=== PATIENT | male | born 1930 | race Caucasian/White ===

== ENCOUNTER → 2016-11-11 | Outpatient (REF) | payer MEDICARE, OTHER ==
[~2016-11-11] MED LIST: AMIO20TA PO; AMLO10TA2 PO; ASPI1TAB PO; ASPI325T PO; CLOP75TA2 PO; COLA100C3 PO; COUM1TAB14 PO; COUM2TAB10 PO; CRES5TAB PO; DEMA5TAB PO; DIGO25TA PO; FOLI1TAB2 PO; IMDU30TA PO; INSULANT SC; LANO0.1211 OR; LANTINJ4 SC; LEVO100T54 PO; LOPR100T PO; LOSA25TA8 PO; LOVA1CAP17 PO; METO50TA2 PO; NIACPOW39 PO; NITR4TASL SL; OMEGA 3 PO; PERC10TA PO; PRIL20CA PO; SITA50TAB PO; TAMS0.4C2 PO; TOPR25TA PO; TORS10TA3 PO; TYLE325T5 PO; VITA1CAP25 PO; VITA500047 PO; VITMTA PO; ZETI10TA21 PO
== END ==
LOC: M LAB REF 16:46
PROVIDERS: ATTEND Internal Medicine Nephrology
DX: N18.4 Chronic kidney disease, stage 4 (severe) (principal); D50.9 Iron deficiency anemia, unspecified

== ENCOUNTER → 2016-11-23 | Outpatient (CLI) | payer MEDICARE, OTHER ==
[2016-11-23 12:31] LABS: ALBUMIN/GLOBULIN RATIO 0.91 (1.00-1.93); BILIRUBIN,DIRECT 0.1 MG/DL (0.0-0.2); BILIRUBIN,TOTAL 0.4 MG/DL (0.2-1.0); MAGNESIUM LEVEL 2.2 MG/DL (1.8-2.4); TOTAL PROTEIN 6.3 GM/DL (6.4-8.2)
== END ==
LOC: M LAB 10:49
PROVIDERS: ATTEND Physician Assistant
DX: I50.32 Chronic diastolic (congestive) heart failure (principal); I48.0 Paroxysmal atrial fibrillation; E78.00 Pure hypercholesterolemia, unspecified; I25.10 Atherosclerotic heart disease of native coronary artery without angina pectoris

== ENCOUNTER → 2017-05-11 | Outpatient (CLI) | payer MEDICARE ==
[~2017-05-11] MED LIST changes: -COLA100C3 PO; +COLA100C5 PO; -COUM2TAB10 PO; +COUM2TAB22 PO; -FOLI1TAB2 PO; +FOLI1TAB4 PO; -METO50TA2 PO; +METO50TA7 PO
--- NOTE | 2017-05-11 17:09 | REP ---
Chest two views HISTORY: Atrial fibrillation Comparison: 12/23/2014 There is elevation of the right hemidiaphragm. The lungs are clear. The heart is upper limits of normal in size. An aortic valve is present. The pulmonary vasculature is normal in appearance. The bony structure is intact. IMPRESSION: No acute disease. Signed by Jovany Tovar MD 05/11/2017 05:00 P
[2017-05-11 21:09] LABS: ALBUMIN 3.1 GM/DL (3.2-5.2); BILIRUBIN,TOTAL 0.4 MG/DL (0.2-1.0); CALCIUM LEVEL 8.5 MG/DL (8.8-10.2); CREATININE FOR GFR 3.51 MG/DL (0.70-1.30); GLOMERULAR FILTRATION RATE 17.8 (>35); MAGNESIUM LEVEL 2.1 MG/DL (1.8-2.4); POTASSIUM SERUM 4.8 MEQ/L (3.5-5.1); TOTAL PROTEIN 6.2 GM/DL (6.4-8.2)
== END ==
LOC: M WUC 16:41
PROVIDERS: ATTEND Physician Assistant
DX: I48.0 Paroxysmal atrial fibrillation (principal)

== ENCOUNTER 2017-06-09 22:37 | Emergency (ER) | payer MEDICARE ==
[~2017-06-09] VITALS: Ht 182.9 cm; Wt 80.9 kg
[2017-06-09 23:36] LABS: BASO % 0.7 % (0.0-1.0); EOS # 0.4 10^3/uL (0.0-0.50); EOS % 7.2 % (0.0-3.0); IMMATURE GRANULOCYTE % 0.5 % (0-0); LYMPH # 1.5 10^3/uL (1.5-4.5); LYMPH % 27.8 % (24.0-44.0); MEAN CORPUSCULAR HEMOGLOBIN 29.5 pg (27.0-33.0); MEAN CORPUSCULAR VOLUME 92.3 fl (80.0-96.0); MONO # 0.5 10^3/uL (0.0-0.8); MONO % 9.6 % (0.0-5.0); NEUTROPHILS % 54.2 % (36.0-66.0); PLATELET COUNT, AUTOMATED 192 10^3/uL (150-450); RED CELL DISTRIBUTION WIDTH 15.2 % (11.5-14.5); WHITE BLOOD COUNT 5.5 10^3/uL (4.0-10.0)
[2017-06-09 23:47] LABS: INR 2.31
[2017-06-10 01:47] VITALS: BP 176/82
== END 2017-06-10 01:48 | disposition home or self-care (01) ==
LOC: M ED 22:37
DX: K91.841 Postprocedural hemorrhage of a digestive system organ or structure following other procedure (principal); I48.91 Unspecified atrial fibrillation; Z79.82 Long term (current) use of aspirin; Z79.4 Long term (current) use of insulin; Z79.01 Long term (current) use of anticoagulants; Z79.899 Other long term (current) drug therapy; Z88.5 Allergy status to narcotic agent; Z91.041 Radiographic dye allergy status; Z91.040 Latex allergy status

== ENCOUNTER 2017-06-11 17:53 | Emergency (ER) | payer MEDICARE ==
[~2017-06-11] VITALS: Ht 180.3 cm; Wt 83.2 kg
[2017-06-11 17:54] VITALS: BP 174/74
[2017-06-11 19:01] LABS: BASO % 0.6 % (0.0-1.0); EOS # 0.4 10^3/uL (0.0-0.50); IMMATURE GRANULOCYTE % 0.3 % (0-0); LYMPH # 1.6 10^3/uL (1.5-4.5); LYMPH % 25.2 % (24.0-44.0); MEAN CORPUSCULAR HEMOGLOBIN 29.6 pg (27.0-33.0); MEAN CORPUSCULAR HGB CONC 31.6 g/dl (32.0-36.5); MEAN CORPUSCULAR VOLUME 93.5 fl (80.0-96.0); MONO # 0.5 10^3/uL (0.0-0.8); MONO % 8.3 % (0.0-5.0); NEUTROPHILS # 3.7 10^3/uL (1.8-7.7); NEUTROPHILS % 58.6 % (36.0-66.0); PLATELET COUNT, AUTOMATED 216 10^3/uL (150-450); WHITE BLOOD COUNT 6.3 10^3/uL (4.0-10.0)
[2017-06-11 19:12] LABS: INR 1.76
== END 2017-06-11 20:20 | disposition home or self-care (01) ==
LOC: M ED 17:53
DX: K91.841 Postprocedural hemorrhage of a digestive system organ or structure following other procedure (principal); Z79.82 Long term (current) use of aspirin; Z79.4 Long term (current) use of insulin; Z79.01 Long term (current) use of anticoagulants; Z79.899 Other long term (current) drug therapy; Z91.040 Latex allergy status; Z88.5 Allergy status to narcotic agent; Z91.041 Radiographic dye allergy status

== ENCOUNTER → 2017-12-04 | Outpatient (CLI) | payer MEDICARE | LOC: M RAD 13:33 | DX: R60.9 Edema, unspecified (principal); N18.6 End stage renal disease | CPT/HCPCS: 93970 ==

== ENCOUNTER → 2017-12-14 | Outpatient (REF) | payer MEDICARE ==
[2017-12-14 14:14] LABS: FERRITIN 17 NG/ML (26-388); IRON (FE) 20 UG/DL (65-175); PERCENT SATURATION 5.8 % (19.7-50.0); TOTAL IRON BINDING CAPACITY 346 UG/DL (250-450)
== END ==
LOC: M LAB REF 13:26
DX: N18.4 Chronic kidney disease, stage 4 (severe) (principal); D50.9 Iron deficiency anemia, unspecified
CPT/HCPCS: 83550

== ENCOUNTER 2018-01-04 13:31 | Outpatient (CLI) | payer MEDICARE ==
[2018-01-04] MEDS: IRON SUCROSE 25 MG in NS 50 ML IV (14:18)
[2018-01-04] MEDS ORDERED: IRON SUCROSE 475 MG in NS 250 ML IV (14:45)
== END 2018-01-04 18:40 | disposition home or self-care (01) ==
LOC: M INFU 13:31
DX: D50.9 Iron deficiency anemia, unspecified (principal); N18.9 Chronic kidney disease, unspecified; Z79.82 Long term (current) use of aspirin; Z79.01 Long term (current) use of anticoagulants; Z79.899 Other long term (current) drug therapy; Z91.048 Other nonmedicinal substance allergy status; Z86.74 Personal history of sudden cardiac arrest; Z95.5 Presence of coronary angioplasty implant and graft; Z95.4 Presence of other heart-valve replacement; Z85.820 Personal history of malignant melanoma of skin
CPT/HCPCS: J1756

== ENCOUNTER → 2018-01-18 | Outpatient (REF) | payer MEDICARE ==
[2018-01-18 18:20] LABS: ESTIMATED AVERAGE GLUCOSE 103 MG/DL (60-110); HEMOGLOBIN A1c 5.2 %
[2018-01-18 18:23] LABS: FREE T3 1.4 PG/ML (2.2-4.0); FREE T4 1.25 NG/DL (0.76-1.46)
== END ==
LOC: M LAB REF 17:06
DX: E03.9 Hypothyroidism, unspecified (principal); E11.9 Type 2 diabetes mellitus without complications
CPT/HCPCS: 84443

== ENCOUNTER → 2018-01-25 | Outpatient (REF) | payer MEDICARE ==
[2018-01-25 13:23] LABS: INR 2.37; PROTHROMBIN TIME 26.4 SECONDS (12.1-14.4)
== END ==
LOC: M LAB REF 12:53
DX: Z79.01 Long term (current) use of anticoagulants (principal)
CPT/HCPCS: 85610

== ENCOUNTER → 2018-01-30 | Outpatient (CLI) | payer MEDICARE | LOC: M RAD 12:57 | DX: N18.6 End stage renal disease (principal); Z01.818 Encounter for other preprocedural examination | CPT/HCPCS: G0365 ==

== ENCOUNTER 2018-02-09 10:18 | Day surgery (SDC) | payer MEDICARE ==
[2018-02-09] MEDS ORDERED: PROPOFOL 200 MG/20 ML VIAL As Ordered ×2 (10:47→13:43)
[2018-02-09] MEDS ORDERED: ONDANSETRON 4MG/2ML VIAL (J2405) As Ordered ×2 (10:47→13:43)
[2018-02-09] MEDS ORDERED: LIDOCAINE 2% INJ 100 MG/5 ML SDV (FOR ANES.) As Ordered ×2 (10:47→13:43)
[2018-02-09] MEDS ORDERED: fentaNYL 250 MCG/5 ML INJECTION (J3010) As Ordered (10:47)
[2018-02-09] MEDS ORDERED: dexameTHASONE 4 MG/ML 1ML VIAL (J1100) As Ordered (10:47)
[2018-02-09] MEDS ORDERED: ROCURONIUM BROMIDE 50 MG/5 ML VIAL As Ordered (10:47)
[2018-02-09] MEDS ORDERED: MIDAZOLAM INJ 2 MG/2 ML VIAL (J2250) As Ordered (10:48)
[2018-02-09] MEDS ORDERED: NS 1,000 ML IV (11:00)
[2018-02-09 11:08] LABS: INR 1.99; PROTHROMBIN TIME 22.9 SECONDS (12.1-14.4)
[2018-02-09 11:09] LABS: PARTIAL THROMBOPLASTIN TIME 42.2 SECONDS (25.4-37.6)
[2018-02-09 11:19] LABS: ANION GAP 8 MEQ/L (8-16); BLOOD UREA NITROGEN 88 MG/DL (7-18); CALCIUM LEVEL 8.1 MG/DL (8.8-10.2); CARBON DIOXIDE LEVEL 29 MEQ/L (21-32); CHLORIDE LEVEL 107 MEQ/L (98-107); CREATININE FOR GFR 3.86 MG/DL (0.70-1.30); GLOMERULAR FILTRATION RATE 15.9 (>35); GLUCOSE, FASTING 113 MG/DL (70-100); POTASSIUM SERUM 4.4 MEQ/L (3.5-5.1); SODIUM LEVEL 144 MEQ/L (136-145)
[2018-02-09 11:20] LABS: BEDSIDE GLUCOSE 110 MG/DL (83-110)
[2018-02-09] MEDS ORDERED: fentaNYL 100 MCG/2 ML INJECTION (J3010) As Ordered (13:43)
[2018-02-09] MEDS ORDERED: ePHEDrine SULFATE 25 MG/5 ML(5MG/ML) SYRINGE As Ordered (14:07)
[2018-02-09] MEDS: HEPARIN SOD (PORCINE) 5000 UNITS/ML VIAL As Ordered (14:11)
[2018-02-09] MEDS: LIDOCAINE 1% SDV INJ 30 ML VIAL As Ordered (14:30)
[2018-02-09] MEDS: BUPIVACAINE HCL 0.5% 30 ML VIAL As Ordered (14:30)
[2018-02-09 15:29] LABS: BEDSIDE GLUCOSE 97 MG/DL (83-110)
== END 2018-02-09 16:00 | disposition home or self-care (01) ==
LOC: M SDC 10:18
DX: E11.22 Type 2 diabetes mellitus with diabetic chronic kidney disease (principal); I12.9 Hypertensive chronic kidney disease with stage 1 through stage 4 chronic kidney disease, or unspecified chronic kidney disease; N18.9 Chronic kidney disease, unspecified; I25.10 Atherosclerotic heart disease of native coronary artery without angina pectoris; I25.2 Old myocardial infarction; I48.91 Unspecified atrial fibrillation; D64.9 Anemia, unspecified; Z95.2 Presence of prosthetic heart valve; Z98.61 Coronary angioplasty status; Z91.040 Latex allergy status; Z91.041 Radiographic dye allergy status; Z88.5 Allergy status to narcotic agent; Z79.899 Other long term (current) drug therapy; Z79.4 Long term (current) use of insulin
CPT/HCPCS: 36821

== ENCOUNTER 2018-02-10 16:48 | Emergency (ER) | payer MEDICARE | END 2018-02-10 18:58 | disposition home or self-care (01) | LOC: M ED 16:48 | DX: T82.838A Hemorrhage due to vascular prosthetic devices, implants and grafts, initial encounter (principal); Y92.9 Unspecified place or not applicable; Y93.9 Activity, unspecified; I48.91 Unspecified atrial fibrillation; I25.10 Atherosclerotic heart disease of native coronary artery without angina pectoris; I50.9 Heart failure, unspecified; I25.2 Old myocardial infarction; E11.9 Type 2 diabetes mellitus without complications; I10 Essential (primary) hypertension; E78.5 Hyperlipidemia, unspecified; M10.9 Gout, unspecified; N18.6 End stage renal disease; Z86.73 Personal history of transient ischemic attack (TIA), and cerebral infarction without residual deficits; Z95.1 Presence of aortocoronary bypass graft; Z79.82 Long term (current) use of aspirin; Z79.4 Long term (current) use of insulin; Z79.01 Long term (current) use of anticoagulants; Z79.899 Other long term (current) drug therapy; Z88.5 Allergy status to narcotic agent; Z91.040 Latex allergy status; Z91.041 Radiographic dye allergy status | CPT/HCPCS: 99283 ==

== ENCOUNTER → 2018-03-15 | Outpatient (REF) | payer MEDICARE ==
[2018-03-16 09:44] LABS: HEPATITIS B SURFACE ANTIGEN NEGATIVE (NEGATIVE)
[2018-03-16 09:48] LABS: HEPATITIS B SURFACE ANTIBODY NEGATIVE (POSITIVE)
[2018-03-16 10:10] LABS: HEPATITIS B CORE ANTIBODY IGM NEGATIVE (NEGATIVE); HEPATITIS C VIRUS ABY INDEX 0.1 INDEX (<0.8)
== END ==
LOC: M LAB REF 13:58
DX: N18.6 End stage renal disease (principal); I48.0 Paroxysmal atrial fibrillation; Z51.81 Encounter for therapeutic drug level monitoring; Z79.01 Long term (current) use of anticoagulants
CPT/HCPCS: 86706

== ENCOUNTER → 2018-03-15 | Outpatient (REF) | payer MEDICARE ==
[2018-03-15 13:36] LABS: INR 3.79; PROTHROMBIN TIME 38.3 SECONDS (12.1-14.4)
== END ==
LOC: M LAB REF 13:01
DX: I48.0 Paroxysmal atrial fibrillation (principal); Z51.81 Encounter for therapeutic drug level monitoring; Z79.01 Long term (current) use of anticoagulants

== ENCOUNTER 2018-03-22 17:33 | Emergency (ER) | payer MEDICARE ==
[2018-03-22] MEDS: METOCLOPRAMIDE 10 MG TAB PO (19:18)
== END 2018-03-22 20:20 | disposition home or self-care (01) ==
LOC: M ED 17:33
DX: T82.49XA Other complication of vascular dialysis catheter, initial encounter (principal); X58.XXXA Exposure to other specified factors, initial encounter; Y92.89 Other specified places as the place of occurrence of the external cause; I12.9 Hypertensive chronic kidney disease with stage 1 through stage 4 chronic kidney disease, or unspecified chronic kidney disease; N18.4 Chronic kidney disease, stage 4 (severe); E78.00 Pure hypercholesterolemia, unspecified; I25.2 Old myocardial infarction; D64.9 Anemia, unspecified; F41.9 Anxiety disorder, unspecified; Z86.73 Personal history of transient ischemic attack (TIA), and cerebral infarction without residual deficits; Z88.5 Allergy status to narcotic agent; Z79.01 Long term (current) use of anticoagulants; Z91.040 Latex allergy status; Z91.041 Radiographic dye allergy status; Z87.891 Personal history of nicotine dependence
CPT/HCPCS: Q0162

== ENCOUNTER → 2018-03-22 | Outpatient (CLI) | payer MEDICARE ==
[~2018-03-22] MED LIST changes: -AMIO20TA PO; -AMLO10TA2 PO; -ASPI1TAB PO; -ASPI325T PO; -CLOP75TA2 PO; -COLA100C5 PO; -COUM1TAB14 PO; -COUM2TAB22 PO; -CRES5TAB PO; -DEMA5TAB PO; -DIGO25TA PO; -FOLI1TAB4 PO; +HEPARIN 1,000 UNITS/ML 10ML VIAL (FOR RADIOLOGY& DIALYSIS ONLY) As Ordered; -IMDU30TA PO; -INSULANT SC; -LANO0.1211 OR; -LANTINJ4 SC; -LEVO100T54 PO; +LIDOCAINE 2% MDV 20 ML VIAL As Ordered; -LOPR100T PO; -LOSA25TA8 PO; -LOVA1CAP17 PO; -METO50TA7 PO; +MIDAZOLAM INJ 2 MG/2 ML VIAL (J2250) As Ordered; -NIACPOW39 PO; -NITR4TASL SL; -OMEGA 3 PO; +ONDANSETRON 4 MG ORAL DISINTEGRATING TAB (Q0162 PER 1MG) As Ordered; -PERC10TA PO; -PRIL20CA PO; -SITA50TAB PO; -TAMS0.4C2 PO; -TOPR25TA PO; -TORS10TA3 PO; -TYLE325T5 PO; -VITA1CAP25 PO; -VITA500047 PO; -VITMTA PO; -ZETI10TA21 PO; +fentaNYL 100 MCG/2 ML INJECTION (J3010) As Ordered
== END | disposition home or self-care (01) ==
LOC: M IRPRO 10:20
DX: N18.9 Chronic kidney disease, unspecified (principal)
CPT/HCPCS: 36558

== ENCOUNTER → 2018-05-07 | Outpatient (CLI) | payer MEDICARE ==
[~2018-05-07] MED LIST changes: -HEPARIN 1,000 UNITS/ML 10ML VIAL (FOR RADIOLOGY& DIALYSIS ONLY) As Ordered; +ISOVUE-300 61% 50ML VIAL (Q9967) As Ordered; -ONDANSETRON 4 MG ORAL DISINTEGRATING TAB (Q0162 PER 1MG) As Ordered
== END | disposition home or self-care (01) ==
LOC: M IRPRO 09:08
DX: N18.6 End stage renal disease (principal); Z99.2 Dependence on renal dialysis
CPT/HCPCS: 36901

== ENCOUNTER 2018-05-12 08:25 | Emergency (ER) | payer MEDICARE ==
[2018-05-12 09:29] LABS: HEMATOCRIT 39.3 % (42.0-52.0); HEMOGLOBIN 12.3 g/dl (13.5-17.5); MEAN CORPUSCULAR HEMOGLOBIN 31.5 pg (27.0-33.0); MEAN CORPUSCULAR HGB CONC 31.3 g/dl (32.0-36.5); MEAN CORPUSCULAR VOLUME 100.5 fl (80.0-96.0); PLATELET COUNT, AUTOMATED 160 10^3/uL (150-450); RED BLOOD COUNT 3.91 10^6/uL (4.30-6.10); RED CELL DISTRIBUTION WIDTH 17.5 % (11.5-14.5)
[2018-05-12 09:54] LABS: ANION GAP 9 MEQ/L (8-16); BLOOD UREA NITROGEN 37 MG/DL (7-18); CALCIUM LEVEL 7.8 MG/DL (8.8-10.2); CARBON DIOXIDE LEVEL 31 MEQ/L (21-32); CHLORIDE LEVEL 101 MEQ/L (98-107); GLOMERULAR FILTRATION RATE 14.4 (>35); GLUCOSE, FASTING 129 MG/DL (70-100); POTASSIUM SERUM 3.8 MEQ/L (3.5-5.1); SODIUM LEVEL 141 MEQ/L (136-145); URIC ACID 3.5 MG/DL (3.5-7.2)
[2018-05-12] MEDS: COLCHICINE 0.6 MG TAB PO (10:58)
== END 2018-05-12 11:01 | disposition home or self-care (01) ==
LOC: M ED 08:25
DX: M25.572 Pain in left ankle and joints of left foot (principal); I25.2 Old myocardial infarction; E11.9 Type 2 diabetes mellitus without complications; I10 Essential (primary) hypertension; E03.9 Hypothyroidism, unspecified; Z86.73 Personal history of transient ischemic attack (TIA), and cerebral infarction without residual deficits; K21.9 Gastro-esophageal reflux disease without esophagitis; N18.3 Chronic kidney disease, stage 3 (moderate); D64.9 Anemia, unspecified; F41.9 Anxiety disorder, unspecified; Z99.2 Dependence on renal dialysis; Z95.1 Presence of aortocoronary bypass graft; Z95.2 Presence of prosthetic heart valve; Z87.891 Personal history of nicotine dependence; I70.209 Unspecified atherosclerosis of native arteries of extremities, unspecified extremity; M77.32 Calcaneal spur, left foot; Z79.82 Long term (current) use of aspirin; Z79.4 Long term (current) use of insulin; Z79.02 Long term (current) use of antithrombotics/antiplatelets; Z79.899 Other long term (current) drug therapy; Z88.5 Allergy status to narcotic agent; Z91.041 Radiographic dye allergy status; Z91.040 Latex allergy status
CPT/HCPCS: 73610

== ENCOUNTER → 2018-06-22 | Outpatient (CLI) | payer MEDICARE | LOC: M SMT 11:33 | DX: J98.11 Atelectasis (principal); J90 Pleural effusion, not elsewhere classified; I51.7 Cardiomegaly; I48.0 Paroxysmal atrial fibrillation; Z97.8 Presence of other specified devices | CPT/HCPCS: 71046 ==

== ENCOUNTER → 2018-07-10 | Outpatient (REF) | payer MEDICARE ==
[~2018-07-10] MED LIST changes: +AMIO200T; +AMIO20TA PO; +AMLO10TA4 PO; +AMOX500T; +ASPI1TAB PO; +ASPI325T PO; +CLOP75TA2 PO; +CODE30TA3 PO; +COLA100C5 PO; +COUM1TAB14 PO; +COUM2TAB22; +COUM2TAB22 PO; +CRES5TAB PO; +DEMA5TAB PO; +DIGO25TA PO; +FOLI1TAB5 PO; +HYDR-3910; +IMDU30TA PO; +INSULANT SC; -ISOVUE-300 61% 50ML VIAL (Q9967) As Ordered; +LANO0.1211 OR; +LANTINJ4 SC; +LEVO100T54 PO; -LIDOCAINE 2% MDV 20 ML VIAL As Ordered; +LOPR100T PO; +LOSA25TA8 PO; +LOVA1CAP17 PO; +METO50TA7 PO; -MIDAZOLAM INJ 2 MG/2 ML VIAL (J2250) As Ordered; +NIACPOW39 PO; +NITR4TASL SL; +OMEGA 3 PO; +PERC10TA PO; +PRIL20CA PO; +PROC20005 IJ; +RENATAB5 PO; +SEVE800T3; +SITA50TAB PO; +STOO100C PO; +TAMS0.4C2 PO; +TAMSULOSIN; +TOPR25TA PO; +TORS10TA3 PO; +TORS5TAB2 PO; +TYLE325T5 PO; +VITA1CAP25 PO; +VITA500047 PO; +VITA50005; +VITMTA PO; +WARF-20 PO; +WARF4TAB51 PO; +ZETI10TA21 PO; -fentaNYL 100 MCG/2 ML INJECTION (J3010) As Ordered
[2018-07-10 13:51] LABS: INR 1.38; PROTHROMBIN TIME 17.2 SECONDS (12.1-14.4)
== END ==
LOC: M LAB REF 12:37
PROVIDERS: ATTEND Internal Medicine Nephrology
DX: J90 Pleural effusion, not elsewhere classified (principal)

== ENCOUNTER → 2018-07-11 | Outpatient (CLI) | payer MEDICARE ==
[2018-07-11 15:00] LABS: APPEARANCE, BODY FLUID CLOUDY (CLEAR); PLEURAL FL COLOR RED (COLORLESS); SOURCE, BODY FLUID PLEURAL
[2018-07-11 15:16] LABS: CHOLESTEROL, BODY FLUID < 50 MG/DL (NOT ESTABLISHED); LDH, BODY FLUID 108 U/L (NOT ESTABLISHED); SOURCE, BODY FLUID CHOL PLEURAL; SOURCE, BODY FLUID LDH PLEURAL; SOURCE, BODY FLUID TOT PROTEIN PLEURAL
--- NOTE | 2018-07-11 17:03 | REP ---
Chest x-ray: Two views. History: Post thoracentesis. The patient is status post right thoracentesis. Comparison chest x-ray June 22, 2018. Findings: There is mild persistent blunting of the posterior pleural angles and the right lateral pleural angle. There is no evidence of pneumothorax. A tunneled central venous catheter is seen. The patient is status post aortic valve replacement and median sternotomy wires are seen. Cardiomegaly is observed. No new infiltrate. Impression: Small bilateral pleural effusions right a little larger than left, post thoracentesis on the right. No pneumothorax seen. Electronically Signed by Carter Rodriguez MD 07/11/2018 08:43 P
--- NOTE | 2018-07-11 20:33 | REP ---
ULTRASOUND-GUIDED RIGHT THORACENTESIS The procedure was performed under the direct supervision of Dr. Rodriguez. The risks and benefits of the procedure were explained to the patient and informed consent was obtained. The right pleural effusion was localized using ultrasound guidance. The skin was prepped and draped in a sterile fashion. 1% lidocaine was used as a local anesthetic. An 8-Sinhala multi side-hole catheter was inserted using trocar technique. 520 ml of low viscosity red colored fluid was withdrawn and sent to the lab for analysis. The patient tolerated the procedure well and there were no immediate complications. After the appropriate amount of monitored convalescence the patient was discharged from the department. Reviewed by YULISSA Heaton 07/11/2018 04:37 P Electronically Signed by Carter Rodriguez MD 07/11/2018 08:23 P
== END ==
LOC: M RADPRO 13:14
PROVIDERS: ATTEND Internal Medicine Nephrology
DX: J90 Pleural effusion, not elsewhere classified (principal); I50.32 Chronic diastolic (congestive) heart failure; I95.9 Hypotension, unspecified; G25.81 Restless legs syndrome; Z99.2 Dependence on renal dialysis; Z79.82 Long term (current) use of aspirin; Z79.899 Other long term (current) drug therapy; Z79.890 Hormone replacement therapy; Z79.01 Long term (current) use of anticoagulants; Z91.040 Latex allergy status; Z88.5 Allergy status to narcotic agent; Z87.891 Personal history of nicotine dependence; Z91.041 Radiographic dye allergy status

== ENCOUNTER → 2018-07-12 | Outpatient (CLI) | payer MEDICARE ==
--- NOTE | 2018-07-14 08:12 | ECHO ---
DATE OF PROCEDURE: 07/12/2018 REFERRING PHYSICIAN: Scot Zacarias MD INDICATION: Hypotension, shortness of breath, edema. HEIGHT: 76 inches WEIGHT: 179 pounds 2D MEASUREMENTS: Ventricular septum: 0.71 cm Posterior wall: 0.74 cm Left ventricle diastole: 6.4 cm Left atrium: 3.7 cm Aortic root: 2.6 cm Aortic annulus: 1.8 cm Inferior vena cava: 2.3 cm with marked reduction of respiratory variation. DOPPLER MEASUREMENTS: Trace aortic regurgitation. Aortic valve velocity: 153 cm/s LVOT velocity: 117 cm/s LVOT VTI: 22.8 cm Moderately-severe mitral regurgitation. Mitral E velocity: 106 cm/s Mitral A velocity: 44.4 cm/s Mitral deceleration time: 165 ms Moderate tricuspid regurgitation. Estimated right ventricle systolic pressure at least 50 mmHg assuming a right atrial pressure of at least 20 mmHg. MITRAL ANNULAR TISSUE DOPPLER: E prime septal: 3.6 cm/s E prime lateral: 6.2 cm/s DESCRIPTION: Rhythm was sinus. This is a moderately technically difficult echocardiogram. No pericardial effusion. This is a 2D, M-mode, color flow Doppler and pulse wave Doppler examination that included mitral annular tissue Doppler. CONCLUSIONS: 1. Mildly dilated left ventricle with end-diastole. Normal left ventricle (LV) wall thickness. Akinesis of the anterior wall from base to apex. Akinesis of the apical segments and apical cap segment. Akinesis of the mid anterolateral, mid inferolateral, and mid inferior segments. Slight paradoxical septal motion involving the basal and mid anteroseptal and mid inferoseptal segments. Severe hypokinesis of the basal inferoseptal segment. No LV thrombus. Severe reduction overall LV systolic function. Left ventricular ejection fraction (LVEF) 20% by visual estimate. LV diastolic function cannot be adequately assessed in the presence of significant mitral regurgitation. However, it was at least suggestive of abnormal diastolic function. 2. Structurally normal appearing tricuspid leaflets. Moderate tricuspid regurgitation. Suggestive of moderate elevation of estimated right ventricle systolic pressure (at least 50 mmHg). Normal right ventricle size and systolic function. Inferior vena cava plethora. Suggestive of elevated central venous pressure of at least 20 mmHg. 3. Mild aortic valve sclerosis. Trace aortic regurgitation. Aortic valve was three-cuspid. 4. Mild mitral annular calcification. Moderately-severe mitral regurgitation. No flail segments. No mitral valve prolapse.
== END ==
LOC: M CARPUL 08:31
PROVIDERS: ATTEND Internal Medicine Nephrology
DX: R94.31 Abnormal electrocardiogram [ECG] [EKG] (principal); R29.898 Other symptoms and signs involving the musculoskeletal system

== ENCOUNTER 2018-08-19 20:37 | Inpatient (IN) | payer MEDICARE ==
[~2018-08-19] VITALS: Ht 182.9 cm; Wt 72.8 kg
[~2018-08-19 20:37] MED LIST changes: -AMIO200T; +AMIO200T PO; -AMLO10TA4 PO; +AMLO10TA5 PO; -COUM2TAB22; +FOLI1TAB11 PO; -FOLI1TAB5 PO
[2018-08-19] MEDS: HumaLOG INSULIN (NovoLOG) PER UNIT SC SCH (21:00)
[2018-08-19] MEDS ORDERED: SEVE800T3 PO (21:31)
[2018-08-19] MEDS ORDERED: PROC20004 SC (21:31)
[2018-08-19] MEDS ORDERED: MIDO5TA PO (21:31)
[2018-08-19 21:32] LABS: BASO % 0.4 % (0.0-1.0); EOS # 0.1 10^3/uL (0.0-0.50); HEMATOCRIT 36.8 % (42.0-52.0); HEMOGLOBIN 11.2 g/dl (13.5-17.5); LYMPH # 3.3 10^3/uL (1.5-4.5); LYMPH % 30.8 % (24.0-44.0); MEAN CORPUSCULAR HEMOGLOBIN 31.8 pg (27.0-33.0); MEAN CORPUSCULAR HGB CONC 30.4 g/dl (32.0-36.5); MEAN CORPUSCULAR VOLUME 104.5 fl (80.0-96.0); MONO % 9.3 % (0.0-5.0); NEUTROPHILS # 6.2 10^3/uL (1.8-7.7); NEUTROPHILS % 58.1 % (36.0-66.0); PLATELET COUNT, AUTOMATED 188 10^3/uL (150-450); RED BLOOD COUNT 3.52 10^6/uL (4.30-6.10); WHITE BLOOD COUNT 10.7 10^3/uL (4.0-10.0)
[2018-08-19 21:36] LABS: INR 1.42; PROTHROMBIN TIME 17.6 SECONDS (12.1-14.4)
[2018-08-19] MEDS ORDERED: iron IV (21:36)
[2018-08-19] MEDS ORDERED: TYLE500T78 PO (21:36)
[2018-08-19] MEDS ORDERED: REQU1TAB14 PO (21:36)
[2018-08-19] MEDS ORDERED: TYLE1TAB5 PO (21:36)
[2018-08-19] MEDS ORDERED: FEBU40TA PO (21:36)
[2018-08-19] MEDS ORDERED: VITATAB73 PO (21:38)
[2018-08-19] MEDS ORDERED: FOLI1TAB11 PO (21:38)
[2018-08-19 21:59] LABS: ALBUMIN 2.6 GM/DL (3.2-5.2); BILIRUBIN,DIRECT 0.3 MG/DL (0.0-0.2); BILIRUBIN,TOTAL 0.6 MG/DL (0.2-1.0); CALCIUM LEVEL 8.1 MG/DL (8.8-10.2); CREATININE FOR GFR 6.43 MG/DL (0.70-1.30); GLOMERULAR FILTRATION RATE 8.8 (>35); THYROID STIMULATING HORMONE 2.14 uIU/ML (0.358-3.740); TOTAL PROTEIN 6.2 GM/DL (6.4-8.2); TROPONIN I 0.24 NG/ML (< 0.10)
--- NOTE | 2018-08-19 22:42 | REPVR ---
EXAM: CT Chest Without Contrast EXAM DATE/TIME: 08/19/2018 9:51 PM CLINICAL HISTORY: 87 years old, male; Condition or disease; Lung condition and disease; Pleural effusion; Other: Unk TECHNIQUE: Axial computed tomography images of the chest without intravenous contrast. All CT scans at this facility use at least one of these dose optimization techniques: automated exposure control; mA and/or kV adjustment per patient size (includes targeted exams where dose is matched to clinical indication); or iterative reconstruction. Coronal and sagittal reformatted images were created and reviewed. MIP reconstructed images were created and reviewed. COMPARISON: CT Chest without contrast 01/27/2015 8:29 AM FINDINGS: Tubes, catheters and devices: The tip of the central venous line in the right atrium. Lungs: Small patchy airspace infiltrates in the left upper lobe and minimally in the right apex. Findings may be atelectatic although multifocal pneumonitis to be excluded clinically. Pleural space: Small to moderate right pleural effusion. Minimal left pleural effusion. Compressive atelectasis both lung bases. Heart: There is severe atherosclerotic calcification of the coronary arteries. Status post CABG. Cardiomegaly. Aorta: The aorta demonstrates mild atherosclerotic calcification. Lymph nodes: Unremarkable. No enlarged lymph nodes. Bones/joints: Glenohumeral joint degenerative change bilaterally. The spine demonstrates mild degenerative changes. Status post sternotomy. Soft tissues: Unremarkable. Kidneys and ureters: Left renal cyst measures 1.6 cm. IMPRESSION: 1. Small patchy airspace infiltrates in the left upper lobe and minimally in the right apex. Findings may be atelectatic although multifocal pneumonitis to be excluded clinically. 2. Small to moderate right pleural effusion. Minimal left pleural effusion. Compressive atelectasis both lung bases. 3. Status post CABG. Cardiomegaly. Electronically signed by: Raul Block On 08/19/2018 22:42:20 PM
[2018-08-19] MEDS ORDERED: WARF4TAB52 PO (23:26)
[2018-08-19] MEDS ORDERED: PATIENT COMMENTS (23:59)
[2018-08-20] MEDS ORDERED: PILL CRUSHER/CUTTER 1 EACH XX PRN (00:45)
[2018-08-20] MEDS: ROSUVASTATIN 10 MG TAB (CRESTOR) PO SCH ×2 (01:10→20:56)
[2018-08-20] MEDS ORDERED: GLUCAGON FOR INJ 1 MG VIAL (J1610) SC PRN (01:15)
[2018-08-20] MEDS ORDERED: GLUCOSE 4 GM CHEW TABLET PO PRN (01:15)
[2018-08-20] MEDS ORDERED: DEXTROSE 50% 50 ML SYRINGE IV PRN (01:15)
--- NOTE | 2018-08-20 01:35 | HPEPDOC ---
[facility] Medical History & Physical Date of Admission Aug 19, 2018 Other Provider Dictating/admitting: Dio Patterson M.D. Attending Physician: CHANDRA MIRAMONTES MD History and Physical CHIEF COMPLAINT: Shortness of breath 2 days HISTORY OF PRESENT ILLNESS: 87-year-old man with CHF, A. fib, DM, ESRD on HD, Mondays, Wednesdays, Fridays, comes in with shortness of breath for a couple of weeks but now worse over the past 2 days. Patient was initially scheduled to have his second thoracenteses done on Monday the 2018. However, procedure was postponed to next coming Monday, August 27, 2018. His last thoracentesis was a month ago. Patient reports regularly on Coumadin for A. fib 1 mg Mondays and Fridays and 2 mg the rest of the days. However, he had skipped 2 days Coumadin dose until today when he had 1 mg of Coumadin after being told procedure was postponed to next Monday. His shortness of breath worsened this past 2 days. On account of this, he decided to seek further medical evaluation. No history of fever or chills. No headaches. No nausea no vomiting. No chest pain, no palpitations. No change in his bowel or urinary habits. He was evaluated in the emergency room with chest x-ray and CT chest that reveals small to moderate size right pleural effusion. Medicine was called in to admit patient. Dr. Atkinson will see patient in the morning for scheduled dialysis. PAST MEDICAL HISTORY: Per [facility] PAST SURGICAL HISTORY: 1. Peak valve replacement for aortic valve. 2. Open heart surgery 2. 3. Hernia repair. 4. Left shoulder surgery. SOCIAL HISTORY: Lives with . Denies use of alcohol or illicit drugs, denies smoking. FAMILY HISTORY: Father: , was diagnosed with Parkinson's disease Mother: diagnosed with heart disease and diabetes ALLERGIES: Please see below. REVIEW OF SYSTEMS: 12 point review of system on [employer] of new information other than that described in the body of HPI HOME MEDICATIONS: Please see below. PHYSICAL EXAMINATION: VITAL SIGNS: Temperature 97.9, pulse 82, respiratory rate 16, blood pressure 104/50, pulse oximetry 98% on 2L o2. GENERAL APPEARANCE: Elderly man, lying calmly in bed, not in any apparent distress. He is not pale, anicteric and afebrile HEENT: Atraumatic. Neck: Supple. LUNGS: Clear to auscultation bilaterally. CARDIOVASCULAR: S1 and 2 heard, no murmurs, rubs or gallops. ABDOMEN: Obese, soft, not tender, not distended. Bowel sounds normoactive. MUSCULOSKELETAL: Apparently within normal limits. EXTREMITIES: 1+ pedal edema, 2+ bilateral pedal pulses noted. NEUROLOGICAL: Awake, alert, oriented 3. PSYCHIATRIC: Normal affect LABORATORY DATA: See below. IMAGING: CT chest: Small patchy air space infiltrates in the upper lobe. Small to moderate right pleural effusion. Minimal left pleural effusion. Compressive atelectasis both lungs. Chest x-ray: Also reveals pleural effusion in the right lung. EKG normal sinus rhythm. MICROBIOLOGY: Please see below. ASSESSMENT: 87-year-old man with CHF, A. fib, DM, ESRD on HD, Mondays, Wednesdays, Fridays, comes in with shortness of breath worse today. Exam reveals elderly patient comfortable, saturating 98, on 2 L of O2. However, checks x-ray shows moderate right pleural effusion. Patient has regular dialysis Mondays, Wednesdays and Fridays. He does not appear to be in urgent need of dialysis. DIAGNOSES: 1. Shortness of breath, likely due to pleural effusion on the right. 2. ESRD on regular hemodialysis for Monday. . PLAN: 1. I will admit patient to the medical floor under care of Dr Miramontes 2. Patient takes Coumadin 1 mg Mondays and Fridays. The rest of the days, 2 mg. I will hold Coumadin in anticipation of possible thoracentesis tomorrow (patient has been off Coumadin for the past 2 days, but he had 1 dose of 1 mg today after he was told that his procedure was postponed for next Monday), day team consider IR consult after dialysis for possible thoracentesis of right pleural effusion. Follow INR in the morning. However, if procedure, not planned for tomorrow, patient can safely be restarted on Coumadin. 3. DVT prophylaxis with TEDs for now. 4. GI prophylaxis. Pantoprazole. 5. Patient has dialysis scheduled Mondays malaise is on Fridays. Renal consult placed. Dr. Atkinson will see tomorrow. 6. A. fib. Continue medications, but will hold Coumadin for now for reasons described above. 7. Diabetes. We'll continue with diabetic diet/renal diet and insulin sliding scale. 8. Will resume outpatient medications as soon as reconciled. 9. Further management will be per patient's clinical course. Vital Signs Vital Signs Date Time Temp Pulse Resp B/P (MAP) Pulse Ox O2 Delivery O2 Flow Rate FiO2 08/19/18 22:04 08/19/18 20:37 97.9 82 16 Room Air Laboratory Data Labs 24H Laboratory Tests 2 08/19/18 21:02: Immature Granulocyte % (Auto) 0.4, White Blood Count 10.7H, Red Blood Count 3.52L, Hemoglobin 11.2L, Hematocrit 36.8L, Mean Corpuscular Volume 104.5H, Mean Corpuscular Hemoglobin 31.8, Mean Corpuscular Hemoglobin Concent 30.4L, Red Cell Distribution Width 18.0H, Platelet Count 188, Neutrophils (%) (Auto) 58.1, Lymp hocytes (%) (Auto) 30.8, Monocytes (%) (Auto) 9.3H, Eosinophils (%) (Auto) 1.0, Basophils (%) (Auto) 0.4, Neutrophils # (Auto) 6.2, Lymphocytes # (Auto) 3.3, Monocytes # (Auto) 1.0H, Eosinophils # (Auto) 0.1, Basophils # (Auto) 0.0, Nucleated Red Blood Cells % (auto) 0.0, Prothrombin Time 17.6H, Prothromb Time International Ratio 1.42, Anion Gap 11, Glomerular Filtration Rate 8.8L, Calcium Level 8.1L, Aspartate Amino Transf (AST/SGOT) 106H, Alanine Aminotransferase (ALT/SGPT) 72, Alkaline Phosphatase 392H, Total Bilirubin 0.6, Direct Bilirubin 0.3H, Total Creatine Kinase 40, Creatine Kinase MB 2.0, Creatine Kinase MB Relative Index 5.00H, Troponin I 0.24H, HT-Ovo-Y-Type Natriuretic Peptide 1 72753K, Total Protein 6.2L, Albumin 2.6L, Albumin/Globulin Ratio 0.72L, Thyroid Stimulating Hormone (TSH) 2.140 CBC/BMP Laboratory Tests 08/19/18 21:02 Red Blood Count 3.52 L, Mean Corpuscular Volume 104.5 H, Mean Corpuscular Hemoglobin 31.8, Mean Corpuscular Hemoglobin Concent 30.4 L, Red Cell Distribution Width 18.0 H, Neutrophils (%) (Auto) 58.1, Lymphocytes (%) (Auto) 30.8, Monocytes (%) (Auto) 9.3 H, Eosinophils (%) (Auto) 1.0, Basophils (%) (Auto) 0.4, Neutrophils # (Auto) 6.2, Lymphocytes # (Auto) 3.3, Monocytes # (Auto) 1.0 H, Eosinophils # (Auto) 0.1, Basophils # (Auto) 0.0 Microbiology Microbiology 08/19/18 Blood Culture, Received Pending 08/19/18 Blood Culture, Received Pending Home Medications Scheduled (Evita-Velia) 1 Tab Tab, 1 TAB PO DAILY (Procrit) 20,000 Unit/Ml Inj, 1 VIAL SC 3xmonth GIVEN AT DIALYSIS ON A MONDAY, MONDAY AND MONDAY ONCE A MONTH (Requip) 0.25 Mg Tab, 0.25 MG PO QHS Amiodarone HCl (Amiodarone HCl) 200 Mg Tab, 200 MG PO DAILY Febuxostat (Uloric) 40 Mg Tab, 40 MG PO DAILY Folic Acid (Folic Acid) 1 Mg Tab, 1 MG PO DAILY Insulin Glargine (Lantus Solostar) 100 Unit/Ml Inj, 14 DOSE SC QAM Levothyroxine Sodium (Levoxyl) 100 Mcg Tab, 100 MCG PO DAILY Midodrine HCl (Midodrine HCl) 5 Mg Tab, 5 MG PO TID [place] 3 Polyunsat Fatty Acids (Lovaza 1 gm) 1 Cap Cap, 1 CAP PO DAILY Rosuvastatin Calcium (Crestor) 5 Mg Tab, 5 MG PO QPM Sitagliptin (Januvia) 50 Mg Tab, 50 MG PO DAILY Warfarin Sod (Coumadin) 2 Mg Tab, 2 MG PO 5XW TAKES ON MONDAY, MONDAY, MONDAY, MONDAY AND MONDAY. TAKES AT BEDTIME Warfarin Sod (Warfarin Sodium) 1 Mg Tab, 1 MG PO 2XWK TAKES ON MONDAY AND MONDAY, TAKES AT BEDTIME [iron] , IV PRN GIVEN AT DIALYSIS, UNKNOWN DAYS Scheduled PRN (Tylenol Pm Extra Strength 500-25 mg) 1 Tab Tab, 1 TAB PO QHSP PRN for INSOMNIA Acetaminophen (Tylenol Extra Strength) 500 Mg Tab, 500 MG PO DAILY PRN for PAIN OR FEVER Nitroglycerin (Nitrostat) 0.4 Mg Subl, 0.4 MG SL PRN PRN for CHEST PAIN Miscellaneous Medications [Patient Comments] PATIENTS FAMILY STATES LAST EVENING WAS THE FIRST TIME THE PATIENT HAS HAD IS PRESCRIBED WARFARIN IN WEEK. HE WAS TO HAVE A PROCEDURE DONE BUT IT WAS POSTPONED AND HIS TOLD THE FAMILY TO RESUME THE WARFARIN BEGINNING WITH THE 1MG DOSE. Allergies Coded Allergies: Contrast Media (Verified Allergy, Unknown, 03/22/18) kidney issues Latex (Verified Allergy, Unknown, 02/10/18) Morphine (Verified Adverse Reaction, Mild, CONFUSION, 03/22/18) DIO PATTERSON MD Aug 20, 2018 01:35
[2018-08-20] MEDS: LEVOTHYROXINE 100MCG TABLET (0.1MG) PO SCH (06:00)
[2018-08-20 06:47] LABS: BASO % 0.5 % (0.0-1.0); EOS # 0.1 10^3/uL (0.0-0.50); EOS % 1.3 % (0.0-3.0); HEMATOCRIT 34.7 % (42.0-52.0); HEMOGLOBIN 10.8 g/dl (13.5-17.5); LYMPH # 2.2 10^3/uL (1.5-4.5); LYMPH % 27.4 % (24.0-44.0); MEAN CORPUSCULAR HEMOGLOBIN 32.2 pg (27.0-33.0); MEAN CORPUSCULAR HGB CONC 31.1 g/dl (32.0-36.5); MEAN CORPUSCULAR VOLUME 103.6 fl (80.0-96.0); MONO # 0.8 10^3/uL (0.0-0.8); NEUTROPHILS # 4.8 10^3/uL (1.8-7.7); NEUTROPHILS % 60.3 % (36.0-66.0); PLATELET COUNT, AUTOMATED 140 10^3/uL (150-450); RED BLOOD COUNT 3.35 10^6/uL (4.30-6.10)
[2018-08-20 06:58] LABS: INR 1.52; PROTHROMBIN TIME 18.5 SECONDS (12.1-14.4)
[2018-08-20 07:10] LABS: CALCIUM LEVEL 8.3 MG/DL (8.8-10.2); POTASSIUM SERUM 3.8 MEQ/L (3.5-5.1)
--- NOTE | 2018-08-20 07:28 | REP ---
Clinical: Cough and dyspnea. Comparison: 06/22/2018. Findings: Mediastinum demonstrates prior sternotomy with cardiac valve repair and double-lumen dialysis catheter with tips in the right atrium. Cardiomegaly suggested. Right lower lobe consolidation and moderate pleural effusion noted along with trace left basilar atelectasis. No pneumothorax. Skeletal structures stable. Impression: Moderate right lower lobe consolidation and effusion minimally increased from prior examination along with trace left basilar atelectasis. Electronically Signed by Casey Jackson MD 08/20/2018 07:19 A
[2018-08-20] MEDS: HumaLOG INSULIN (NovoLOG) PER UNIT SC SCH ×4 (08:00→20:56)
[2018-08-20] MEDS ORDERED: NITROGLYCERIN 0.4 MG SUBL TABLET SL PRN (08:15)
[2018-08-20] MEDS: PANTOPRAZOLE 40MG TAB (PROTONIX) PO SCH (08:41)
[2018-08-20] MEDS: FEBUXOSTAT 40 MG TABLET (ULORIC) PO SCH (08:41)
[2018-08-20] MEDS: MIDODRINE 5 MG TAB PO SCH ×3 (08:42→15:26)
[2018-08-20] MEDS: AMIODARONE 200 MG TAB (PACERONE) PO SCH (08:42)
[2018-08-20] MEDS: FOLIC ACID 1 MG TAB PO SCH (08:42)
[2018-08-20] MEDS ORDERED: LEVEMIR (INSULIN DETEMIR) 1 UNITS/0.01ML SC ONE (09:00)
[2018-08-20] MEDS ORDERED: LEVEMIR (INSULIN DETEMIR) 1 UNITS/0.01ML SC SCH (09:00)
[2018-08-20 10:23] LABS: MB/CK RELATIVE INDEX 5.15 (< OR =4); TROPONIN I 0.25 NG/ML (< 0.10)
[2018-08-20] MEDS ORDERED: HEPARIN 1,000 UNITS/ML 10ML VIAL (FOR RADIOLOGY& DIALYSIS ONLY) IV ONE (11:45)
[2018-08-20] MEDS ORDERED: HEPARIN 1,000 UNITS/ML 10ML VIAL (FOR RADIOLOGY& DIALYSIS ONLY) XX ONE (11:45)
[2018-08-20 13:37] VITALS: BP 87/46
[2018-08-20 16:00] VITALS: BP 72/59
[2018-08-20 16:30] VITALS: BP 79/44
[2018-08-20 16:41] LABS: MB/CK RELATIVE INDEX 2.61 (< OR =4); TROPONIN I 0.24 NG/ML (< 0.10)
[2018-08-20] MEDS ORDERED: WARFARIN SOD 1 MG TAB PO SCH (17:00)
[2018-08-20] MEDS ORDERED: WARFARIN SOD 5 MG TAB PO ONE (17:00)
--- NOTE | 2018-08-20 17:14 | IPNPDOC ---
Date Seen The patient was seen on 08/20/18. Progress Note SUBJECTIVE: Patient is a 87-year-old male with shortness of breath. Patient is evaluated at bedside this morning. His daughter is present. She states that she is not healthcare proxy, but that her two brothers are. Patient is alert and conversant and eating breakfast during evaluation. He states that he developed progressive shortness of breath that started a couple days ago. He is not oxygen dependent at home, but is currently on nasal cannula during evaluation. He is saturating at 98%. He denies a productive cough or chest pain. Patient states he was scheduled for a right-sided thoracentesis, but that was postponed. He has been off of his Coumadin for upcoming thoracentesis. Admits to lower extremity edema and states that usually his left lower extremity swells, but that both extremities has started to swell. Daughter notes no recent cardiac events. 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 Recently saw local engineering aid for regularly scheduled appointment. Was noted at that time that heart function is declining. Patient's daughter states that no further intervention was offered. Patient is a DNR/DNI. OBJECTIVE PHYSICAL EXAMINATION: VITAL SIGNS: Please see below. GENERAL: Elderly male, appropriately dressed in hospital attire, wrapped in a warm blanket, alert and conversant, on since questions appropriately, no conversational dyspnea, no acute distress. HEENT: Atraumatic, normocephalic, PERRL, EOMI, wears spectacles, oral mucosa appears pink and moist, nasal septum appears midline, nares are patent, nasal cannula in place. CARDIOVASCULAR: Regular rate and rhythm, normal S1 and S2, grade 3/6 systolic murmur appreciated best over the left third intercostal space, no appreciable jugular venous distention noted, Perm-A-Cath noted in the right anterior chest. RESPIRATORY: Poor inspiratory effort, diminished airway excursion throughout. ABDOMINAL: Soft, nontender, nondistended. EXTREMITIES: +2 pitting edema noted in the bilateral lower extremities, peripheral pulses are equal and symmetrical throughout. NEUROLOGICAL: No focal neurological deficits. PSYCHOLOGICAL: Mood and affect appropriate. LABORATORY DATA, IMAGING STUDIES, MICROBIOLOGY: Please see below. Portal chest x-ray on 08/19/2018 - moderate right lower lobe consolidation and effusion. CT chest without contrast on 08/19/2018 - small patchy airspace infiltrates in left upper lobe and minimally in right apex, small to moderate right pleural effusion, minimal left pleural effusion. DVT prophylaxis ordered?: TEDs, sequentials, knee-high compression. ASSESSMENT AND PLAN: This is a 87-year-old male with shortness of breath likely secondary to right-sided pleural effusion which is likely secondary to systolic heart failure. PROBLEMS: 1. Shortness of breath: Likely secondary to right-sided pleural effusion which is secondary to systolic heart failure exacerbation. Patient has a left ventricular ejection fraction 20%. BNP >100,000. Scheduled for thoracentesis tomorrow, 08/21/2018. Pleural fluid analysis ordered. Oxygen therapy symptomatic relief shortness of breath. Underwent hemodialysis with 2 L removed today, 08/20/2018. Warfarin has been on hold for thoracentesis. Explained the risks of possible stroke of which patient is aware. Patient is DNR/DNI. 2. Bilateral lower extremity edema: Likely secondary to systolic heart failure. Obtaining bilateral lower extremity ultrasound. Patient has been off warfarin for upcoming thoracentesis. 3. Systolic heart failure exacerbation: Left ventricular ejection fraction 20%. BNP > 100,000. Fluid management by hemodialysis. Patient underwent hemodialysis today, 08/20/2018, with 2 L removed. Patient is not a candidate for Entresto secondary to end-stage renal disease on hemodialysis. 4. Elevated troponin: Asymptomatic. Trend cardiac markers which remain marginally elevated, but stable. Obtaining electrocardiogram. 5. Lactic acidosis: Patient is afebrile and not tachycardic. Blood pressures are somewhat low. Patient has significant underlying cardiac and renal disease with a possible cause likely secondary to significant cardiac disease and current exacerbation of systolic heart failure. Blood cultures are pending. No repeat lactic acid level required. Likely secondary to underlying cardiac disease with exacerbation of heart failure and right sided pleural effusion. 6. Hypotension: Continue midodrine. Monitor closely. 7. End-stage renal disease on hemodialysis: Nephrology consulted. Patient underwent hemodialysis today, 08/20/2018, with 2 L removed. 8. Atrial fibrillation: Continue amiodarone. Warfarin on hold secondary to thoracentesis. 9. Diabetes mellitus: Metformin on hold. Providing long-acting insulin 10 units subcutaneously every morning, sliding scale insulin, hypoglycemic protocol, fingersticks before meals and at bedtime. 10. Hypothyroidism: Continue levothyroxine. TSH within normal limits. 11. Dyslipidemia: Continue rosuvastatin. 12. Gout: Continue Uloric. 13. Gastroesophageal reflux disease: Continue Protonix. DISPOSITION: Thoracentesis tomorrow, 08/21/2018. VS, I&O, 24H, Fishbone Vital Signs/I&O Vital Signs Date Time Temp Pulse Resp B/P (MAP) Pulse Ox O2 Delivery O2 Flow Rate FiO2 08/20/18 16:00 99.4 79 18 72/59 (63) 96 Room Air Laboratory Data 24H LABS Laboratory Tests 2 08/19/18 21:02: Immature Granulocyte % (Auto) 0.4, White Blood Count 10.7H, Red Blood Count 3.52L, Hemoglobin 11.2L, Hematocrit 36.8L, Mean Corpuscular Volume 104.5H, Mean Corpuscular Hemoglobin 31.8, Mean Corpuscular Hemoglobin Concent 30.4L, Red Cell Distribution Width 18.0H, Platelet Count 188, Neutrophils (%) (Auto) 58.1, Lymphocytes (%) (Auto) 30.8, Monocytes (%) (Auto) 9.3H, Eosinophils (%) (Auto) 1.0, Basophils (%) (Auto) 0.4, Neutrophils # (Auto) 6.2, Lymphocytes # (Auto) 3.3, Monocytes # (Auto) 1.0H, Eosinophils # (Auto) 0.1, Basophils # (Auto) 0.0, Nucleated Red Blood Cells % (auto) 0.0, Prothrombin Time 17.6H, Prothromb Time International Ratio 1.42, Anion Gap 11, Glomerular Filtration Rate 8.8L, Calcium Level 8.1L, Aspartate Amino Transf (AST/SGOT) 106H, Alanine Aminotransferase (ALT/SGPT) 72, Alkaline Phosphatase 392H, Total Bilirubin 0.6, Direct Bilirubin 0.3H, Total Creatine Kinase 40, Creatine Kinase MB 2.0, Creatine Kinase MB Relative Index 5.00H, Troponin I 0.24H, [id number]-Type Natriuretic Peptide [id number], Total Protein 6.2L, Albumin 2.6L, Albumin/Globulin Ratio 0.72L, Thyroid Stimulating Hormone (TSH) 2.140 08/20/18 06:29: Immature Granulocyte % (Auto) 0.5, White Blood Count 8.0, Red Blood Count 3.35L, Hemoglobin 10.8L, Hematocrit 34.7L, Mean Corpuscular Volume 103.6H, Mean Corpuscular Hemoglobin 32.2, Mean Corpuscular Hemoglobin Concent 31.1L, Red Cell Distribution Width 18.2H, Platelet Count 140L, Neutrophils (%) (Auto) 60.3, Lymphocytes (%) (Auto) 27.4, Monocytes (%) (Auto) 10.0H, Eosinophils (%) (Auto) 1.3, Basophils (%) (Auto) 0.5, Neutrophils # (Auto) 4.8, Lymphocytes # (Auto) 2.2, Monocytes # (Auto) 0.8, Eosinophils # (Auto) 0.1, Basophils # (Auto) 0.0, Nucleated Red Blood Cells % (auto) 0.0, Prothrombin Time 18.5H, Prothromb Time International Ratio 1.52, Anion Gap 13, Glomerular Filtration Rate 8.0L, Calcium Level 8.3L, Blood Urea Nitrogen 54H, Creatinine 7.00H, Sodium Level 140, Potassium Level 3.8, Chloride Level 103, Carbon Dioxide Level 24, Lactate Dehydrogenase 214 08/20/18 08:02: Bedside Glucose (Misc Panel) 86 08/20/18 08:49: Total Creatine Kinase 33L, Creatine Kinase MB 2.0, Creatine Kinase MB Relative Index 5.15H, Troponin I 0.25H 08/20/18 13:40: Bedside Glucose (Misc Panel) 112H 08/20/18 15:49: CBC/BMP Laboratory Tests 08/19/18 21:02 Red Blood Count 3.52 L, Mean Corpuscular Volume 104.5 H, Mean Corpuscular Hemoglobin 31.8, Mean Corpuscular Hemoglobin Concent 30.4 L, Red Cell Distribution Width 18.0 H, Neutrophils (%) (Auto) 58.1, Lymphocytes (%) (Auto) 30.8, Monocytes (%) (Auto) 9.3 H, Eosinophils (%) (Auto) 1.0, Basophils (%) (Auto) 0.4, Neutrophils # (Auto) 6.2, Lymphocytes # (Auto) 3.3, Monocytes # (Auto) 1.0 H, Eosinophils # (Auto) 0.1, Basophils # (Auto) 0.0 08/20/18 06:29 Red Blood Count 3.35 L, Mean Corpuscular Volume 103.6 H, Mean Corpuscular Hemoglobin 32.2, Mean Corpuscular Hemoglobin Concent 31.1 L, Red Cell Distribution Width 18.2 H, Neutrophils (%) (Auto) 60.3, Lymphocytes (%) (Auto) 27.4, Monocytes (%) (Auto) 10.0 H, Eosinophils (%) (Auto) 1.3, Basophils (%) (Auto) 0.5, Neutrophils # (Auto) 4.8, Lymphocytes # (Auto) 2.2, Monocytes # (Auto) 0.8, Eosinophils # (Auto) 0.1, Basophils # (Auto) 0.0, Calcium Level 8.3 L Microbiology Microbiology 08/19/18 Blood Culture, Received Pending 08/19/18 Blood Culture, Received Pending DESHAWN BROWN DO Aug 20, 2018 17:14
--- NOTE | 2018-08-20 18:02 | REP ---
Clinical: Bilateral lower extremity pain and edema . Technique: Pope scale and color Doppler evaluation using linear high frequency transducer. Findings: Ultrasound examination of the right and left lower extremity deep venous structures from the common femoral vein to the popliteal vein demonstrates normal compressibility and flow in response to respiration and augmentation. There is no evidence for deep venous thrombosis. Pulsatile wave patterns are identified and consistent with a history of cardiac dysfunction. 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 Impression: No evidence for deep venous thrombosis. Bilateral Bal's cysts. Findings to suggest cardiac dysfunction. Electronically Signed by Casey Jackson MD 08/20/2018 05:53 P
[2018-08-20 20:23] VITALS: BP 82/48
[2018-08-20] MEDS: ACETAMINOPHEN 500 MG TAB PO PRN (21:29)
[2018-08-20 22:34] VITALS: BP 78/50
[2018-08-20 23:22] VITALS: BP 84/45
[2018-08-21] VITALS (11 sets, daily range): BP systolic 79–102; BP diastolic 44–55
[2018-08-21 05:27] LABS: BASO % 0.5 % (0.0-1.0); EOS # 0.1 10^3/uL (0.0-0.50); EOS % 1.3 % (0.0-3.0); HEMATOCRIT 34.6 % (42.0-52.0); HEMOGLOBIN 10.7 g/dl (13.5-17.5); LYMPH # 2.2 10^3/uL (1.5-4.5); LYMPH % 28.4 % (24.0-44.0); MEAN CORPUSCULAR HGB CONC 30.9 g/dl (32.0-36.5); MEAN CORPUSCULAR VOLUME 103.6 fl (80.0-96.0); MONO # 0.9 10^3/uL (0.0-0.8); MONO % 11.4 % (0.0-5.0); NEUTROPHILS # 4.4 10^3/uL (1.8-7.7); NEUTROPHILS % 57.9 % (36.0-66.0); PLATELET COUNT, AUTOMATED 156 10^3/uL (150-450); RED BLOOD COUNT 3.34 10^6/uL (4.30-6.10); WHITE BLOOD COUNT 7.7 10^3/uL (4.0-10.0)
[2018-08-21 05:38] LABS: INR 1.47; PROTHROMBIN TIME 18.1 SECONDS (12.1-14.4)
[2018-08-21 05:47] LABS: ALBUMIN 2.3 GM/DL (3.2-5.2); CALCIUM LEVEL 8.3 MG/DL (8.8-10.2); CREATININE FOR GFR 4.54 MG/DL (0.70-1.30); GLOMERULAR FILTRATION RATE 13.2 (>35); POTASSIUM SERUM 4.4 MEQ/L (3.5-5.1)
[2018-08-21] MEDS: LEVOTHYROXINE 100MCG TABLET (0.1MG) PO SCH (05:58)
--- NOTE | 2018-08-21 07:00 | CR ---
DATE OF CONSULTATION: 08/20/2018 REFERRING PHYSICIAN: Jovany Rao MD REASON FOR CONSULTATION: Shortness of breath in this gentleman with end-stage renal disease and congestive heart failure. HISTORY OF PRESENT ILLNESS: Mr. Quezada is an 87-year-old male with known history of systolic congestive heart failure, atrial fibrillation, diabetes, end-stage renal disease and a history of right-sided pleural effusion. The patient has been dialysis dependent for the last few months. However has not been doing very well. He has remained very weak and short of breath with recurrent congestive heart failure and pleural effusions. He did have a thoracentesis done just a few weeks ago. However, he became short of breath and was brought to the emergency room last evening. He was found to have a large right-sided pleural effusion and decompensated congestive heart failure. The patient was admitted last evening and nephrology consultation was requested for dialysis. He is seen this morning. PAST MEDICAL AND SURGICAL HISTORY: Significant for: 1. End-stage renal disease. 2. Type 2 diabetes. 3. Systolic congestive heart failure. 4. Atrial fibrillation. 5. Anemia. 6. Pleural effusion. 7. Chronic degenerative arthritis. PAST SURGICAL HISTORY: Significant for: 1. Aortic valve replacement. 2. Open heart surgery and coronary artery bypass graft (CABG). 3. Hernia repair. 4. Left shoulder surgery. 5. He has a Perma-Cath for dialysis. PERSONAL AND SOCIAL HISTORY: The patient lives with his family. There is no history of alcohol or drug use. FAMILY HISTORY: Negative for end-stage renal disease. His father had Parkinson's disease and is . Mother was diagnosed with heart disease and diabetes and also . ALLERGIES: Patient has allergy to [employer]ONTR[employer] MEDIA and LATEX. He is also allergic to MORPHINE. MEDICATIONS: His home medications include: - Evita-Velia one tablet daily - Mircera with hemodialysis - amiodarone 200 mg daily - Uloric 40 mg daily - folic acid 1 mg daily - Lantus insulin 14 units daily - midodrine 5 mg three times daily - Crestor 5 mg daily - Januvia 50 mg daily - Coumadin 2 mg daily - Tylenol as needed REVIEW OF SYSTEMS: The patient has been feeling very weak and significantly deteriorated over the last several months. He did not really perk up even with starting dialysis. He has been very weak and mostly decompensated. There is no fever or chills reported. He is hard of hearing but denies any sore throat. Cardiovascular system is significant for dyspnea and leg edema. Respiratory system is significant for a short of breath but no history of hemoptysis. He does have large right-sided pleural effusion on CT scan of chest. GI system is negative for vomiting or diarrhea. system is negative for dysuria or hematuria. Endocrine system is negative for secondary hyperparathyroidism. He does have hypothyroidism and type 2 diabetes. Musculoskeletal system is significant for history of gout but no active flares reported. Hematological system significant for anemia and chronic anticoagulation. Neurological system is negative for seizures or stroke. PHYSICAL EXAMINATION: Elderly gentleman lying in the bed who is short of breath and using oxygen. Temperature is 99 degrees Fahrenheit, heart rate 78 per minute and respiratory rate 20 per minute. Blood pressure 100/50 mmHg and oxygen saturation 97%. Head is atraumatic. There is no oral thrush or ulcers. Pupils equal and reactive to light and sclera is anicteric. Neck is supple and JVD is moderately elevated about 8 cm above sternal angle. Heart: Sounds are irregular in rhythm and a systolic murmur grade 2/6 is audible. Lungs with markedly diminished breath sounds on the right base and few basilar rales. Abdomen: Soft and nontender and bowel sounds are normal. Extremities have no cyanosis or clubbing. Neurologically he is awake and able to answer simple questions. He does not have any focal neurological deficit. LABORATORY DATA: This morning's labs show WBC count 8.0, hemoglobin 10.8 and hematocrit 34.7. Platelets 140. Sodium 140, potassium 3.8, CO2 24, BUN 54 and creatinine 7.0. Glucose 105 and calcium 8.3. PROBLEMS: 1. Shortness of breath probably related to pleural effusion and some mild volume overload. 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 2. Right-sided pleural effusion. The patient did have a thoracentesis done a few weeks ago which did help with his symptoms. He has significant right pleural effusion and should have another thoracentesis done today. 3. Hypotension. The patient has history of chronic hypotension and has been on midodrine 5 mg three times a day which should be continued. 4. End-stage renal disease. The patient is dialysis dependent and he is due for dialysis today. He is going to be dialyzed in the morning. Thank you for involving me in the care of Mr. Quezada. I will follow him along with you.
[2018-08-21] MEDS: HumaLOG INSULIN (NovoLOG) PER UNIT SC SCH ×4 (07:59→20:24)
[2018-08-21] MEDS: MIDODRINE 5 MG TAB PO SCH ×3 (08:38→17:14)
[2018-08-21] MEDS: PANTOPRAZOLE 40MG TAB (PROTONIX) PO SCH (08:38)
[2018-08-21] MEDS: FOLIC ACID 1 MG TAB PO SCH (08:39)
[2018-08-21] MEDS: AMIODARONE 200 MG TAB (PACERONE) PO SCH (08:39)
[2018-08-21] MEDS: ACETAMINOPHEN 500 MG TAB PO PRN (08:39)
[2018-08-21] MEDS ORDERED: [UNRECOGNIZED DRUG - OTHER] TOP PRN (09:30)
[2018-08-21] MEDS ORDERED: ARTHRITIS TOP PRN (09:30)
[2018-08-21] MEDS: FEBUXOSTAT 40 MG TABLET (ULORIC) PO SCH (10:41)
--- NOTE | 2018-08-21 11:20 | IPNPDOC ---
Date Seen The patient was seen on 08/21/18. Progress Note SUBJECTIVE: Patient is a 87-year-old male with shortness of breath. Patient is evaluated at bedside this morning. His daughter is at bedside. Patient is not currently wearing oxygen. He states that his shortness of breath is worsened with ambulation, but while at rest his shortness of breath is not bothersome. Denies chest pain, fever, night sweats, chills. OBJECTIVE PHYSICAL EXAMINATION: VITAL SIGNS: Please see below. GENERAL: Elderly male, appropriately dressed in hospital attire, answers questions appropriately, alert and conversant, no acute distress. HEENT: Atraumatic, normocephalic, PERRL, EOMI, wears spectacles, oral mucosa appears pink and moist, nasal septum appears midline, nares are patent. CARDIOVASCULAR: Regular rate and rhythm, normal S1 and S2, grade 3/6 systolic murmur appreciated best over the left third intercostal space, no appreciable jugular venous distention noted, Perm-A-Cath noted in the right anterior chest. RESPIRATORY: Clear to auscultation in the upper lobes bilaterally, diminished in the right lower lobe, no definite wheeze or rhonchi. ABDOMINAL: Soft, nontender, nondistended. EXTREMITIES: +2 pitting edema noted in the bilateral lower extremities, peripheral pulses are equal and symmetrical throughout. NEUROLOGICAL: No focal neurological deficits. PSYCHOLOGICAL: Mood and affect appropriate. LABORATORY DATA, IMAGING STUDIES, MICROBIOLOGY: Please see below. Portal chest x-ray on 08/19/2018 - moderate right lower lobe consolidation and effusion. CT chest without contrast on 08/19/2018 - small patchy airspace infiltrates in left upper lobe and minimally in right apex, small to moderate right pleural effusion, minimal left pleural effusion. Bilateral lower extremity duplex ultrasound on 08/20/2018 - no evidence for deep venous thrombosis. Chest x-ray, 2 view, PA and lateral on 08/21/2018 - right sided pleural effusion decreased in size, no pneumothorax. DVT prophylaxis ordered?: TEDs, sequentials, knee-high compression. ASSESSMENT AND PLAN: This is a 87-year-old male with shortness of breath likely secondary to right-sided pleural effusion which is likely secondary to systolic heart failure. PROBLEMS: 1. Shortness of breath: Likely secondary to right-sided pleural effusion which is secondary to systolic heart failure exacerbation. Patient has a left ventricular ejection fraction 20%. BNP >100,000. Scheduled for thoracentesis today, 08/21/2018. Pleural fluid analysis ordered. Oxygen therapy symptomatic relief shortness of breath. Underwent hemodialysis with 2 L removed. Warfarin has been on hold for thoracentesis. Explained the risks of possible stroke of which patient is aware. Patient is DNR/DNI. 2. Right-sided pleural effusion: Therapeutic thoracentesis today, 08/21/2018. Fluid analysis revealed LDH 102, protein 2.3, and albumin 1.1. Serum LDH 214, serum protein 6.2, and serum albumin 2.3. LDH ratio 0.5, protein ratio 0.4, SAAG 1.2. Most consistent with transudative effusion secondary to heart failure. Post-thoracentesis chest x-ray is negative for pneumothorax. 3. Bilateral lower extremity edema: Likely secondary to systolic heart failure. Lower extremity ultrasound was negative. 4. Systolic heart failure exacerbation: Left ventricular ejection fraction 20%. BNP > 100,000. Fluid management by hemodialysis. Patient underwent hemodialysis on 08/20/2018 with 2 L removed. Patient is not a candidate for Entresto secondary to end-stage renal disease on hemodialysis. 5. Elevated troponin: Asymptomatic. Trend cardiac markers which remain marginally elevated, but stable. Electrocardiogram obtained which reveals no significant change from one obtained at time of admission. 6. Lactic acidosis: Normalized. Patient is afebrile and not tachycardic. Blood pressures are somewhat low. Patient has significant underlying cardiac and renal disease with a possible cause likely secondary to significant cardiac disease and current exacerbation of systolic heart failure. Blood cultures are pending. No repeat lactic acid level required. Likely secondary to underlying cardiac disease with exacerbation of heart failure and right sided pleural effusion. 7. Hypotension: Continue midodrine. Monitor closely. 8. End-stage renal disease on hemodialysis: Nephrology consulted. Patient underwent hemodialysis on 08/20/2018 with 2 L removed. 9. Atrial fibrillation: Continue amiodarone. Warfarin on hold secondary to thoracentesis. 10. Diabetes mellitus: Metformin on hold. Continue with sliding scale insulin, hypoglycemic protocol, fingersticks before meals and at bedtime. 11. Hypothyroidism: Continue levothyroxine. TSH within normal limits. 12. Dyslipidemia: Continue rosuvastatin. 13. Gout: Continue Uloric. 14. Gastroesophageal reflux disease: Continue Protonix. DISPOSITION: Thoracentesis today. VS, I&O, 24H, Fishbone Vital Signs/I&O Vital Signs Date Time Temp Pulse Resp B/P (MAP) Pulse Ox O2 Delivery O2 Flow Rate FiO2 08/21/18 10:15 75 88/53 (65) 08/21/18 07:50 96.7 20 94 08/21/18 05:05 Room Air 08/20/18 20:00 3.0 I&O- Last 24 Hours up to 6 AM 08/21/18 06:00 Intake Total 120 ml Output Total 2000 ml Balance -1880 ml Laboratory Data 24H LABS Laboratory Tests 2 08/20/18 13:40: Bedside Glucose (Misc Panel) 112H 08/20/18 15:49: Lactic Acid Level 5.4*H, Total Creatine Kinase 69#, Creatine Kinase MB 2.0, Creatine Kinase MB Relative Index 2.61, Troponin I 0.24H 08/20/18 17:53: Bedside Glucose (Misc Panel) 140H 08/20/18 20:54: Bedside Glucose (Misc Panel) 172H 08/21/18 05:11: Immature Granulocyte % (Auto) 0.5, White Blood Count 7.7, Red Blood Count 3.34L, Hemoglobin 10.7L, Hematocrit 34.6L, Mean Corpuscular Volume 103.6H, Mean Corpuscular Hemoglobin 32.0, Mean Corpuscular Hemoglobin Concent 30.9L, Red Cell Distribution Width 18.1H, Platelet Count 156, Neutrophils (%) (Auto) 57.9, Lymphocytes (%) (Auto) 28.4, Monocytes (%) (Auto) 11.4H, Eosinophils (%) (Auto) 1.3, Basophils (%) (Auto) 0.5, Neutrophils # (Auto) 4.4, Lymphocytes # (Auto) 2.2, Monocytes # (Auto) 0.9H, Eosinophils # (Auto) 0.1, Basophils # (Auto) 0.0, Nucleated Red Blood Cells % (auto) 0.0, Prothrombin Time 18.1H, Prothromb Time International Ratio 1.47, Blood Urea Nitrogen 29H, Creatinine 4.54H, Sodium Level 138, Potassium Level 4.4, Chloride Level 101, Carbon Dioxide Level 29, Anion Gap 8, Glomerular Filtration Rate 13.2L, Lactic Acid Level 2.0, Calcium Level 8.3L, Phosphorus Level 2.0L, Albumin 2.3L CBC/BMP Laboratory Tests 08/21/18 05:11 Red Blood Count 3.34 L, Mean Corpuscular Volume 103.6 H, Mean Corpuscular Hemoglobin 32.0, Mean Corpuscular Hemoglobin Concent 30.9 L, Red Cell Distribution Width 18.1 H, Neutrophils (%) (Auto) 57.9, Lymphocytes (%) (Auto) 28.4, Monocytes (%) (Auto) 11.4 H, Eosinophils (%) (Auto) 1.3, Basophils (%) (Auto) 0.5, Neutrophils # (Auto) 4.4, Lymphocytes # (Auto) 2.2, Monocytes # (Auto) 0.9 H, Eosinophils # (Auto) 0.1, Basophils # (Auto) 0.0, Anion Gap 8 Microbiology Microbiology 08/19/18 Blood Culture - Preliminary, Resulted No growth after 24 hours . All specim... 08/19/18 Blood Culture - Preliminary, Resulted No growth after 24 hours . All specim... DESHAWN BROWN DO Aug 21, 2018 10:43
--- NOTE | 2018-08-21 12:39 | IPN ---
DATE: 08/21/2018 Mr. Quezada is seen this morning on his bedside. He reports that he had leg clamps and generalized muscular pains and aches through the night and could not sleep well. This morning he is feeling better and reports improved dyspnea. He denies any nausea or vomiting and had a good breakfast. He did not have thoracentesis done yesterday which is now scheduled for later today. The patient was dialyzed and 2 liters of fluid yesterday with dialysis. On physical exam, temperature is 96.7 degrees Fahrenheit, heart rate 75 per minute and respiratory rate 20 per minute. Blood pressure 88/53 mmHg, which is his usual blood pressure for him. Oxygen saturation is 98% on room air. His head is atraumatic. Neck is supple and jugular venous distention (JVD) is only mildly elevated. Lungs have diminished breath sounds on right side and a few basilar rales on the left. Heart: Sounds are irregular in rhythm. Abdomen: Soft and nontender and bowel sounds are normal. Extremities have no cyanosis or clubbing. Lower extremity edema is 2+ on the right of 1+ on the left leg. Neurologically, he is awake, alert and oriented times three. Today's labs show WBC count 7.7, hemoglobin 10.7 and hematocrit 34.6. Platelets 156. Sodium 138, potassium 4.4, CO2 29, BUN 29 and creatinine 4.54. Lactic acid level is down to 2.0. Calcium is 8.3 and phosphorus 2.0. PROBLEMS: 1. End-stage renal disease: The patient was dialyzed yesterday and next dialysis will be scheduled for tomorrow. 2. Congestive heart failure and pleural effusion. Volume status seems clinically improved with 2 liters fluid removed yesterday. He still has right-sided pleural effusion and is going to have a thoracentesis done today. 3. Atrial fibrillation: Ventricular rate is very well controlled and he remains on amiodarone and Coumadin. 4. Gout: The patient is currently asymptomatic and remains on Uloric 40 mg daily. 5. Hypotension: This is a chronic issue and blood pressure is still low. He is on low-dose midodrine which will be continued.
[2018-08-21] MEDS ORDERED: WARFARIN SOD 2 MG TAB PO SCH (17:00)
[2018-08-21 17:32] LABS: PH BODY FLUID 7.532 UNITS (NOT ESTABLISHED); SOURCE, BODY FLUID pH PLEURAL
[2018-08-21 18:05] LABS: AMYLASE, BODY FLUID 30 U/L (NOT ESTABLISHED); CHOLESTEROL, BODY FLUID < 50 MG/DL (NOT ESTABLISHED); LDH, BODY FLUID 102 U/L (NOT ESTABLISHED); SOURCE, BODY FLUID ALBUMIN PLEURAL; SOURCE, BODY FLUID AMYLASE PLEURAL; SOURCE, BODY FLUID CHOL PLEURAL; SOURCE, BODY FLUID GLUCOSE PLEURAL; SOURCE, BODY FLUID LDH PLEURAL; SOURCE, BODY FLUID TOT PROTEIN PLEURAL; SOURCE, BODY FLUID TRIG PLEURAL; TOTAL PROTEIN, BODY FLUID 2.3 G/DL (NOT ESTABLISHED); TRIGLYCERIDE, BODY FLUID 21 MG/DL (NOT ESTABLISHED)
[2018-08-21 18:13] LABS: APPEARANCE, BODY FLUID CLOUDY (CLEAR); PLEURAL FL COLOR RED (COLORLESS); SOURCE, BODY FLUID PLEURAL
--- NOTE | 2018-08-21 18:16 | REP ---
PA and lateral chest, post thoracentesis, 05:02 p.m.: Comparison is 08/19/2018. The previous right pleural effusion has decreased in size. The there is no pneumothorax. The lung preston otherwise clear. Cardiomegaly, sternotomy wires, cardiac valve replacement and right IJ central venous catheter are unchanged. Electronically Signed by Sandro Stewart MD 08/21/2018 06:08 P
--- NOTE | 2018-08-21 20:46 | ECGEPIP ---
Stationary ECG Study [facility] - ED Test Date: 2018-08-19 Pat Name: DINORA NICOLE Department: Room: [place] [address] Gender: M Qc Analyst: CORDELL : 1930 Requested By: PAPITO Huynh Order Number: [id number] Reading MD: Kiet Redmond Measurements Intervals [place] Rate: 76 P: 258 NM: 192 QRS: 218 QRSD: 202 T: 128 QT: 506 QTc: 569 Interpretive Statements SINUS RHYTHM WITH OCCASIONAL VENTRICULAR PREMATURE COMPLEXES INTRAVENTRICULAR CONDUCTION DELAY LATERAL MYOCARDIAL INFARCTION, OF INDETERMINATE AGE Electronically Signed On 08-21-2018 20:46:28 EST by Kiet Redmond
[2018-08-21] MEDS: ROSUVASTATIN 10 MG TAB (CRESTOR) PO SCH (21:07)
[2018-08-21] MEDS ORDERED: ULTRACET TAB PO ONE (21:45)
[2018-08-22] VITALS: BP 85/47
--- NOTE | 2018-08-22 00:39 | ECGEPIP ---
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 NO DEFINITIVE P-WAVES NOTED MARKED LEFT AXIS DEVIATION LEFT BUNDLE BRANCH BLOCK MOST RECENT TRACING ON 08/19/2018 AT 21:28:54 AND OTHER TRACINGS IN THE SYSTEM. THE AXIS IS NOT DIFFERENT, IT WAS PROBABLY RELATED TO LEAD MISPLACEMENT. PATIENT HAS PRIOR EKGs WITH ATRIAL FIBRILLATION/ATRIAL FLUTTER Electronically Signed On 08-22-2018 0:39:17 EST by Josep Barber
[2018-08-22 04:00] VITALS: BP 90/55
[2018-08-22 06:09] LABS: BASO % 0.3 % (0.0-1.0); EOS # 0.1 10^3/uL (0.0-0.50); EOS % 1.3 % (0.0-3.0); HEMATOCRIT 34.2 % (42.0-52.0); HEMOGLOBIN 10.6 g/dl (13.5-17.5); LYMPH # 1.9 10^3/uL (1.5-4.5); LYMPH % 21.2 % (24.0-44.0); MEAN CORPUSCULAR HEMOGLOBIN 31.9 pg (27.0-33.0); MONO # 0.9 10^3/uL (0.0-0.8); MONO % 9.3 % (0.0-5.0); NEUTROPHILS # 6.2 10^3/uL (1.8-7.7); NEUTROPHILS % 67.4 % (36.0-66.0); PLATELET COUNT, AUTOMATED 162 10^3/uL (150-450); RED BLOOD COUNT 3.32 10^6/uL (4.30-6.10); WHITE BLOOD COUNT 9.2 10^3/uL (4.0-10.0)
[2018-08-22] MEDS: FEBUXOSTAT 40 MG TABLET (ULORIC) PO SCH (06:13)
[2018-08-22] MEDS: MIDODRINE 5 MG TAB PO SCH ×3 (06:13→17:52)
[2018-08-22] MEDS: PANTOPRAZOLE 40MG TAB (PROTONIX) PO SCH (06:13)
[2018-08-22] MEDS: LEVOTHYROXINE 100MCG TABLET (0.1MG) PO SCH (06:14)
[2018-08-22 06:22] LABS: ALBUMIN 2.1 GM/DL (3.2-5.2); CALCIUM LEVEL 7.8 MG/DL (8.8-10.2); CREATININE FOR GFR 6.03 MG/DL (0.70-1.30); GLOMERULAR FILTRATION RATE 9.5 (>35); PHOSPHORUS LEVEL 2.3 MG/DL (2.5-4.9); POTASSIUM SERUM 4.7 MEQ/L (3.5-5.1)
[2018-08-22 06:44] LABS: INR 1.33; PROTHROMBIN TIME 16.7 SECONDS (12.1-14.4)
[2018-08-22 08:00] VITALS: BP 111/60
[2018-08-22] MEDS: HumaLOG INSULIN (NovoLOG) PER UNIT SC SCH ×4 (08:12→20:46)
[2018-08-22] MEDS ORDERED: HEPARIN 1,000 UNITS/ML 10ML VIAL (FOR RADIOLOGY& DIALYSIS ONLY) XX ONE (10:30)
[2018-08-22] MEDS ORDERED: HEPARIN 1,000 UNITS/ML 10ML VIAL (FOR RADIOLOGY& DIALYSIS ONLY) IV ONE (10:30)
--- NOTE | 2018-08-22 10:44 | REP ---
ULTRASOUND-GUIDED RIGHT THORACENTESIS The procedure was performed under the direct supervision of Dr. Pope. The risks and benefits of the procedure were explained to the patient and informed consent was obtained. The right pleural effusion was localized using ultrasound guidance. The skin was prepped and draped in a sterile fashion. 1% lidocaine was used as a local anesthetic. An 8-Serbian multi side-hole catheter was inserted using trocar technique. 480 ml of low viscosity red colored fluid was withdrawn with a sample sent to the lab for analysis. The patient tolerated the procedure well and there were no immediate complications. Reviewed by YULISSA Heaton 08/21/2018 05:02 P Electronically Signed by Sandro Pope MD 08/22/2018 10:36 A
[2018-08-22] MEDS ORDERED: SLF 3 ML SYR IV PRN (12:00)
--- NOTE | 2018-08-22 12:00 | IPN ---
DATE OF VISIT: 08/22/2018 Mr. Quezada is seen this morning during hemodialysis. He is feeling better and his dyspnea has improved. He underwent a right thoracentesis yesterday and 480 mL of fluid was removed. He denies any nausea or vomiting. Postprocedure chest x-ray did show significant improvement in the pleural effusion. This morning, his blood pressure was about 85/47 mmHg and heart rate 76 per minute. His temperature is 98.2 degrees Fahrenheit and oxygen saturation 94% on room air. His respiratory rate is 20 per minute. His neck veins are not abnormally distended. His head is atraumatic and there is no thyroid enlargement or oral thrush. His heart sounds are irregular in rhythm and lungs sound much better today with slightly diminished breath sounds at right base. Abdomen soft and nontender and bowel sounds are normal. Extremities have no cyanosis or clubbing. Neurologically he is awake, alert and at his baseline mentation. Today's labs show WBC count 9.2, hemoglobin 10.6 and hematocrit 34.2. Platelets 162. Sodium 136, potassium 4.7, CO2 24, BUN 41 and creatinine 6.03. Calcium is 7.8 and phosphorus 2.3. PROBLEMS: 1. End-stage renal disease. The patient is regularly dialyzed on Monday, Monday and Monday schedule. He is being dialyzed today and tolerating it well. 2. Congestive heart failure and recurrent right pleural effusion. Volume status seems reasonably well-compensated and the patient had a right thoracentesis done just yesterday. We will keep trying to maintain his volume status and he should stay on fluid restriction of 1500 mL per day. We are removing about 1 liter of fluid today. 3. Atrial fibrillation. Ventricular rate is very well controlled with amiodarone 200 mg daily and he remains on Coumadin. 4. Hypotension. The patient has chronic hypotension which is improving and he is currently on midodrine 5 mg three times a day which will be continued. 5. Disposition. From a renal standpoint, the patient seems to be doing well and is likely to be ready for discharge tomorrow. He will need to be monitored after dialysis today due to risk of hypotension requiring fluid bolus.
--- NOTE | 2018-08-22 12:38 | IPNPDOC ---
Date Seen The patient was seen on 08/22/18. Progress Note SUBJECTIVE: Patient is a 87-year-old male with shortness of breath. Patient is evaluated in hemodialysis today. His daughter is at bedside. He states that his shortness of breath has improved after the thoracentesis yesterday. He is not currently on oxygen (and he does not use oxygen at home). He denies chest pain. OBJECTIVE PHYSICAL EXAMINATION: VITAL SIGNS: Please see below. GENERAL: Elderly male, appropriately dressed in hospital attire, answers questions appropriately, alert and conversant, no acute distress. HEENT: Atraumatic, normocephalic, PERRL, EOMI, wears spectacles, oral mucosa appears pink and moist, nasal septum appears midline, nares are patent. CARDIOVASCULAR: Regular rate and rhythm, normal S1 and S2, grade 3/6 systolic murmur appreciated best over the left third intercostal space, no appreciable jugular venous distention noted, Perm-A-Cath noted in the right anterior chest with hemodialysis tubing attached. RESPIRATORY: Clear to auscultation in the upper lobes bilaterally, diminished in the right lower lobe, no definite wheeze or rhonchi. ABDOMINAL: Soft, nontender, nondistended. EXTREMITIES: +2 pitting edema noted in the bilateral lower extremities, peripheral pulses are equal and symmetrical throughout. NEUROLOGICAL: No focal neurological deficits. PSYCHOLOGICAL: Mood and affect appropriate. LABORATORY DATA, IMAGING STUDIES, MICROBIOLOGY: Please see below. Portal chest x-ray on 08/19/2018 - moderate right lower lobe consolidation and effusion. CT chest without contrast on 08/19/2018 - small patchy airspace infiltrates in left upper lobe and minimally in right apex, small to moderate right pleural effusion, minimal left pleural effusion. Bilateral lower extremity duplex ultrasound on 08/20/2018 - no evidence for deep venous thrombosis. Ultrasound-guided right thoracentesis on 08/21/2018 - 480 mL low viscosity red c olored fluid withdrawn. Chest x-ray, 2 view, PA and lateral on 08/21/2018 - right sided pleural effusion decreased in size, no pneumothorax. DVT prophylaxis ordered?: TEDs, sequentials, knee-high compression. ASSESSMENT AND PLAN: This is a 87-year-old male with shortness of breath likely secondary to right-sided pleural effusion which is likely secondary to systolic heart failure. PROBLEMS: 1. Shortness of breath: Improved. Likely secondary to right-sided pleural effusion which is secondary to systolic heart failure exacerbation. Patient has a left ventricular ejection fraction 20%. BNP >100,000. Status-post right-sided thoracentesis. Pleural fluid analysis revealed a transudative effusion likely secondary to heart failure. Approximately 480 mL withdrawn. Patient is DNR/DN I. 2. Right-sided pleural effusion: Status-post right thoracentesis with 480 mL fluid withdrawn. Subjective improvement in shortness of breath. Post- thoracentesis chest x-ray obtained which was unrevealing. Fluid analysis revealed LDH 102, protein 2.3, and albumin 1.1. Serum LDH 214, serum protein 6.2, and serum albumin 2.3. LDH ratio 0.5, protein ratio 0.4, SAAG 1.2. Most consistent with transudative effusion secondary to heart failure. 3. Bilateral lower extremity edema: Likely secondary to systolic heart failure. Lower extremity ultrasound was negative. 4. Systolic heart failure exacerbation: Left ventricular ejection fraction 20%. BNP > 100,000. Fluid management by hemodialysis. Patient underwent hemodialysis on 08/20/2018 with 2 L removed. Patient is not a candidate for Entresto secondary to end-stage renal disease on hemodialysis. 5. Elevated troponin: Asymptomatic. Trend cardiac markers which remain marginally elevated, but stable. Electrocardiogram obtained which reveals no significant change from one obtained at time of admission. 6. Lactic acidosis: Normalized. 7. Hypotension: Continue midodrine. Monitor closely. 8. End-stage renal disease on hemodialysis: Nephrology consulted. Patient underwent hemodialysis on 08/20/2018 with 2 L removed. Hemodialysis today, 08/22/2018. Regular hemodialysis days are Monday, Monday, Monday. 9. Atrial fibrillation: Continue amiodarone. Restarted Warfarin on regular schedule. Will provided a one-time 5mg dose today, 08/22/2018 as patient is sub-therapeutic. 10. Diabetes mellitus: Metformin on hold. Continue with sliding scale insulin, hypoglycemic protocol, fingersticks before meals and at bedtime. 11. Hypothyroidism: Continue levothyroxine. TSH within normal limits. 12. Dyslipidemia: Continue rosuvastatin. 13. Gout: Continue Uloric. 14. Gastroesophageal reflux disease: Continue Protonix. DISPOSITION: Hemodialysis today. Discharge when medically cleared by nephrology. VS, I&O, 24H, Fishbone Vital Signs/I&O Vital Signs Date Time Temp Pulse Resp B/P (MAP) Pulse Ox O2 Delivery O2 Flow Rate FiO2 08/22/18 08:00 98.2 78 18 111/60 (77) 91 Room Air 08/20/18 20:00 3.0 I&O- Last 24 Hours up to 6 AM 08/22/18 06:00 Intake Total 1080 ml Output Total 0 ml Balance 1080 ml Laboratory Data 24H LABS Laboratory Tests 2 08/21/18 16:50: Body Fluid pH 7.532, Body Fluid pH Source PLEURAL, Body Fluid WBC (Auto) 1265H, Body Fluid RBC (Auto) 110, Body Fluid Mononuclear Cells % Auto 95.0H, Fluid Polymorphonuclear Cell % Auto 5.0H, Body Fluid Glucose Source PLEURAL, Body Fluid Glucose 126, Body Fluid Protein Source PLEURAL, Body Fluid Total Protein 2.3, Body Fluid Albumin Source PLEURAL, Body Fluid Albumin 1.1, Body Fluid LDH Source PLEURAL, Body Fluid Lactate Dehydrogenase 102, Body Fluid Amylase Source PLEURAL, Body Fluid Amylase 30, Body Fluid Cholesterol < 50, Body Fluid Cholesterol Source PLEURAL, Body Fluid Triglyceride Source PLEURAL, Body Fluid Triglycerides 21, Pleural Fluid Source PLEURAL, Pleural Fluid Color RED, Pleural Fluid Appearance CLOUDY 08/21/18 17:11: Bedside Glucose (Misc Panel) 141H 08/21/18 19:45: Bedside Glucose (Misc Panel) 105 08/22/18 05:22: Immature Granulocyte % (Auto) 0.5, White Blood Count 9.2, Red Blood Count 3.32L, Hemoglobin 10.6L, Hematocrit 34.2L, Mean Corpuscular Volume 103.0H, Mean Corpuscular Hemoglobin 31.9, Mean Corpuscular Hemoglobin Concent 31.0L, Red Cell Distribution Width 18.0H, Platelet Count 162, Neutrophils (%) (Auto) 67.4H, Lymphocytes (%) (Auto) 21.2L, Monocytes (%) (Auto) 9.3H, Eosinophils (%) (Auto) 1.3, Basophils (%) (Auto) 0.3, Neutrophils # (Auto) 6.2, Lymphocytes # (Auto) 1.9, Monocytes # (Auto) 0.9H, Eosinophils # (Auto) 0.1, Basophils # (Auto) 0.0, Nucleated Red Blood Cells % (auto) 0.0, Prothrombin Time 16.7H, Prothromb Time International Ratio 1.33, Blood Urea Nitrogen 41H, Creatinine 6.03H, Sodium Level 136, Potassium Level 4.7, Chloride Level 100, Carbon Dioxide Level 24, Anion Gap 12, Glomerular Filtration Rate 9.5L, Calcium Level 7.8L, Phosphorus Level 2.3L, Albumin 2.1L 08/22/18 07:41: Bedside Glucose (Misc Panel) 145H CBC/BMP Laboratory Tests 08/22/18 05:22 Red Blood Count 3.32 L, Mean Corpuscular Volume 103.0 H, Mean Corpuscular Hemoglobin 31.9, Mean Corpuscular Hemoglobin Concent 31.0 L, Red Cell Distribution Width 18.0 H, Neutrophils (%) (Auto) 67.4 H, Lymphocytes (%) (Auto) 21.2 L, Monocytes (%) (Auto) 9.3 H, Eosinophils (%) (Auto) 1.3, Basophils (%) (Auto) 0.3, Neutrophils # (Auto) 6.2, Lymphocytes # (Auto) 1.9, Monocytes # (Auto) 0.9 H, Eosinophils # (Auto) 0.1, Basophils # (Auto) 0.0, Anion Gap 12 Microbiology Microbiology 08/19/18 Blood Culture - Preliminary, Resulted No Growth after 48 hours. All Specime... 08/19/18 Blood Culture - Preliminary, Resulted No Growth after 48 hours. All Specime... 08/21/18 Acid Fast Stain, Received Pending 08/21/18 Mycobacterial Culture, Received Pending 08/21/18 Fungal Smear, Received Pending 08/21/18 Fungal Culture, Received Pending 08/21/18 Gram Stain - Final, Resulted 08/21/18 Anaerobic Culture, Resulted Pending 08/21/18 Body Fluid Culture, Received Pending DESHAWN BRWON DO Aug 22, 2018 12:38
[2018-08-22] MEDS: AMIODARONE 200 MG TAB (PACERONE) PO SCH (13:52)
[2018-08-22] MEDS: FOLIC ACID 1 MG TAB PO SCH (13:53)
[2018-08-22] MEDS: ACETAMINOPHEN 500 MG TAB PO PRN (13:58)
[2018-08-22] MEDS: SLF 3 ML SYR IV SCH ×2 (14:00→21:36)
[2018-08-22 16:00] VITALS: BP 98/49
[2018-08-22] MEDS ORDERED: WARFARIN SOD 5 MG TAB PO ONE (17:00)
[2018-08-22] MEDS ORDERED: WARFARIN SOD 2 MG TAB PO SCH (17:00)
[2018-08-22 20:00] VITALS: BP 80/42
[2018-08-22] MEDS: ROSUVASTATIN 10 MG TAB (CRESTOR) PO SCH (20:50)
[2018-08-22 23:59] VITALS: BP 80/44
[2018-08-23 04:00] VITALS: BP 96/45
[2018-08-23] MEDS: LEVOTHYROXINE 100MCG TABLET (0.1MG) PO SCH (05:27)
[2018-08-23] MEDS: SLF 3 ML SYR IV SCH (05:27)
[2018-08-23 05:54] LABS: BASO % 0.5 % (0.0-1.0); EOS # 0.2 10^3/uL (0.0-0.50); EOS % 2.2 % (0.0-3.0); HEMATOCRIT 34.2 % (42.0-52.0); HEMOGLOBIN 10.8 g/dl (13.5-17.5); LYMPH # 2.6 10^3/uL (1.5-4.5); LYMPH % 32.1 % (24.0-44.0); MEAN CORPUSCULAR HEMOGLOBIN 32.5 pg (27.0-33.0); MEAN CORPUSCULAR HGB CONC 31.6 g/dl (32.0-36.5); MONO # 0.9 10^3/uL (0.0-0.8); NEUTROPHILS # 4.4 10^3/uL (1.8-7.7); NEUTROPHILS % 53.3 % (36.0-66.0); PLATELET COUNT, AUTOMATED 156 10^3/uL (150-450); RED BLOOD COUNT 3.32 10^6/uL (4.30-6.10); WHITE BLOOD COUNT 8.2 10^3/uL (4.0-10.0)
[2018-08-23 06:04] LABS: INR 1.21; PROTHROMBIN TIME 15.5 SECONDS (12.1-14.4)
[2018-08-23 06:24] LABS: ALBUMIN 2.1 GM/DL (3.2-5.2); CALCIUM LEVEL 7.7 MG/DL (8.8-10.2); CREATININE FOR GFR 3.75 MG/DL (0.70-1.30); GLOMERULAR FILTRATION RATE 16.4 (>35); POTASSIUM SERUM 4.1 MEQ/L (3.5-5.1)
[2018-08-23 08:00] VITALS: BP 81/44
[2018-08-23] MEDS: FEBUXOSTAT 40 MG TABLET (ULORIC) PO SCH (08:18)
[2018-08-23] MEDS: FOLIC ACID 1 MG TAB PO SCH (08:18)
[2018-08-23] MEDS: AMIODARONE 200 MG TAB (PACERONE) PO SCH (08:19)
[2018-08-23] MEDS: MIDODRINE 5 MG TAB PO SCH (08:19)
[2018-08-23] MEDS: PANTOPRAZOLE 40MG TAB (PROTONIX) PO SCH (08:19)
[2018-08-23] MEDS: HumaLOG INSULIN (NovoLOG) PER UNIT SC SCH (08:20)
--- NOTE | 2018-08-23 13:31 | DS.PDOC ---
Discharge Summary General Date of Admission Aug 20, 2018 at 00:16 Date of Discharge 08/23/2018 Primary Care Physician: CARMELA ATKINSON MD @ Attending Physician: BLAIR NEAL MD Specialist/Consultants Involve: SALINAS ATKINSON DO Discharge Summary PROCEDURES PERFORMED DURING STAY: [None]. ADMITTING DIAGNOSES: 1. Shortness of breath, likely due to pleural effusion on the right. 2. ESRD on regular hemodialysis for Monday. DISCHARGE DIAGNOSES: 1. Shortness of breath. 2. Right-sided pleural effusion. 3. Bilateral lower extremity edema. 4. Systolic and diastolic congestive heart failure with a left ventricular ejection fraction 20%. 5. End stage renal disease on hemodialysis Monday, Monday, Monday. 6. Elevated troponin. 7. Lactic acidosis. 8. Atrial fibrillation, 9. Diabetes mellitus. 10. Hypothyroidism. 11. Dyslipidemia. 12. Gout. 13. Gastroesophageal reflux disease. COMPLICATIONS/CHIEF COMPLAINT: Esrd Needing Dialysis,Shortness Of Breath. HISTORY OF PRESENT ILLNESS: Mr. Quezada is an 87-year-old man with CHF, A. fib, DM, ESRD on HD, Mondays, Wednesdays, Fridays, comes in with shortness of breath for a couple of weeks but now worse over the past 2 days. Patient was initially scheduled to have his second thoracenteses done on Monday the 2018. However, procedure was postponed to next coming Monday, August 27, 2018. His last thoracentesis was a month ago. Patient reports regularly on Coumadin for A. fib 1 mg Mondays and Fridays and 2 mg the rest of the days. However, he had skipped 2 days Coumadin dose until today when he had 1 mg of Coumadin after being told procedure was postponed to next Monday. His shortness of breath worsened this past 2 days. On account of this, he decided to seek further medi paco evaluation. No history of fever or chills. No headaches. No nausea no vomiting. No chest pain, no palpitations. No change in his bowel or urinary habits. He was evaluated in the emergency room with chest x-ray and CT chest that reveals small to moderate size right pleural effusion. Medicine was called in to admit patient. Dr. Atkinson will see patient in the morning for scheduled dialysis. HOSPITAL COURSE: Patient was admitted. Coumadin was held due to right-sided thoracentesis. Tolerated the thoracentesis well. Nephrology was consulted for hemodialysis management. Underwent hemodialysis during hospitalization on his regular dialysis days of Monday, Monday, Monday with 2L removed on Monday and 1L removed on Monday. Coumadin was restarted following procedure. He was given a one-time 5mg dose and instructed to increase his dose to 4mg and his Monday dose to 2mg with a recheck of PT/INR on Monday during hemodialysis. Patient improved symptomatically throughout hospitalization and was stable at time of discharge. DISCHARGE MEDICATIONS: Please see below. ALLERGIES: Please see below. PHYSICAL EXAMINATION ON DISCHARGE: VITAL SIGNS: Please see below. GENERAL: Elderly male, appropriately dressed in hospital attire, answers questions appropriately, alert and conversant, no acute distress. HEENT: Atraumatic, normocephalic, PERRL, EOMI, wears spectacles, oral mucosa appears pink and moist, nasal septum appears midline, nares are patent. CARDIOVASCULAR: Regular rate and rhythm, normal S1 and S2, grade 3/6 systolic murmur appreciated best over the left third intercostal space, no appreciable jugular venous distention noted, Perm-A-Cath noted in the right anterior chest with hemodialysis tubing attached. RESPIRATORY: Clear to auscultation in the upper lobes bilaterally, diminished in the right lower lobe, no definite wheeze or rhonchi. ABDOMINAL: Soft, nontender, nondistended. EXTREMITIES: +2 pitting edema noted in the bilateral lower extremities, peripheral pulses are equal and symmetrical throughout. NEUROLOGICAL: No focal neurological deficits. PSYCHOLOGICAL: Mood and affect appropriate. LABORATORY DATA: Please see below. IMAGIN. Portal chest x-ray on 08/19/2018 - moderate right lower lobe consolidation and effusion. 2. CT chest without contrast on 08/19/2018 - small patchy airspace infiltrates in left upper lobe and minimally in right apex, small to moderate right pleural effusion, minimal left pleural effusion. 3. Bilateral lower extremity duplex ultrasound on 08/20/2018 - no evidence for deep venous thrombosis. 4. Chest x-ray, 2 view, PA and lateral on 08/21/2018 - right sided pleural effusion decreased in size, no pneumothorax. PROGNOSIS: Stable. ACTIVITY: As tolerated. DIET: Renal. DISCHARGE PLAN: Problem: Managing health at home Goal: Improve health & wellness Instructions: Follow DC Instruction Problem: End Stage Renal Failure/ Pleural Effusion Goal: Decrease Shortness of Breath Instructions: Follow Discharge Instructions DISPOSITION: 01 Home, Self-Care. DISCHARGE INSTRUCTIONS: 1. INCREASE Warfarin to 2mg today, 08/23/2018. 2. INCREASE Warfarin to 1mg on tomorrow, 08/24/2018. 3. Take your regular dose of Warfarin on all other days. 4. Get a PT/INR checked at your hemodialysis appointment tomorrow, 08/24/2018. 5. Return to the nearest Emergency Department should your symptoms worsen or persist. 6. Follow up with your primary care provider, Dr. Didier Atkinson, in 7-10 days. ITEMS TO FOLLOWUP ON ON OUTPATIENT: 1. Management of right-sided pleural effusion. DISCHARGE CONDITION: Stable. TIME SPENT ON DISCHARGE: Greater than 30 minutes. Vital Signs/I&Os Vital Signs Date Time Temp Pulse Resp B/P (MAP) Pulse Ox O2 Delivery O2 Flow Rate FiO2 08/23/18 08:00 98.0 75 20 81/44 (56) 95 08/22/18 08:00 Room Air 08/20/18 20:00 3.0 I&O- Last 24 Hours up to 6 AM 08/23/18 06:00 Intake Total 840 ml Output Total 1000 ml Balance -160 ml Laboratory Data Labs 24H Laboratory Tests 2 08/22/18 13:18: Bedside Glucose (Misc Panel) 96 08/22/18 17:37: Bedside Glucose (Misc Panel) 141H 08/22/18 20:11: Bedside Glucose (Misc Panel) 101 08/23/18 05:15: Immature Granulocyte % (Auto) 0.9, White Blood Count 8.2, Red Blood Count 3.32L, Hemoglobin 10.8L, Hematocrit 34.2L, Mean Corpuscular Volume 103.0H, Mean Corpuscular Hemoglobin 32.5, Mean Corpuscular Hemoglobin Concent 31.6L, Red Cell Distribution Width 17.9H, Platelet Count 156, Neutrophils (%) (Auto) 53.3, Lymphocytes (%) (Auto) 32.1, Monocytes (%) (Auto) 11.0H, Eosinophils (%) (Auto) 2.2, Basophils (%) (Auto) 0.5, Neutrophils # (Auto) 4.4, Lymphocytes # (Auto) 2.6, Monocytes # (Auto) 0.9H, Eosinophils # (Auto) 0.2, Basophils # (Auto) 0.0, Nucleated Red Blood Cells % (auto) 0.0, Prothrombin Time 15.5H, Prothromb Time International Ratio 1.21, Blood Urea Nitrogen 27H, Creatinine 3.75H, Sodium Level 135L, Potassium Level 4.1, Chloride Level 100, Carbon Dioxide Level 24, Anion Gap 11, Glomerular Filtration Rate 16.4L, Calcium Level 7.7L, Phosphorus Level 2.0L, Albumin 2.1L CBC/BMP Laboratory Tests 08/23/18 05:15 Red Blood Count 3.32 L, Mean Corpuscular Volume 103.0 H, Mean Corpuscular Hemoglobin 32.5, Mean Corpuscular Hemoglobin Concent 31.6 L, Red Cell Distribution Width 17.9 H, Neutrophils (%) (Auto) 53.3, Lymphocytes (%) (Auto) 32.1, Monocytes (%) (Auto) 11.0 H, Eosinophils (%) (Auto) 2.2, Basophils (%) (Auto) 0.5, Neutrophils # (Auto) 4.4, Lymphocytes # (Auto) 2.6, Monocytes # (Auto) 0.9 H, Eosinophils # (Auto) 0.2, Basophils # (Auto) 0.0, Anion Gap 11 FSBS Laboratory Tests Test 08/22/18 13:18 08/22/18 17:37 08/22/18 20:11 Range/Units Bedside Glucose (Misc Panel) 96 141 101 83-110 MG/DL Microbiology Microbiology 08/19/18 Blood Culture - Preliminary, Resulted No Growth after 72 hours. All specime... 08/19/18 Blood Culture - Preliminary, Resulted No Growth after 72 hours. All specime... 08/21/18 Acid Fast Stain, Received Pending 08/21/18 Mycobacterial Culture, Received Pending 08/21/18 Fungal Smear, Received Pending 08/21/18 Fungal Culture, Received Pending 08/21/18 Gram Stain - Final, Complete 08/21/18 Anaerobic Culture - Final, Complete 08/21/18 Body Fluid Culture - Final, Complete Discharge Medications Scheduled (Evita-Velia) 1 Tab Tab, 1 TAB PO DAILY, (Reported) (Procrit) 20,000 Unit/Ml Inj, 1 VIAL SC 3xmonth, (Reported) GIVEN AT DIALYSIS ON A MONDAY, MONDAY AND MONDAY ONCE A MONTH (Requip) 0.25 Mg Tab, 0.25 MG PO QHS, (Reported) Amiodarone HCl (Amiodarone HCl) 200 Mg Tab, 200 MG PO DAILY, (Reported) Febuxostat (Uloric) 40 Mg Tab, 40 MG PO DAILY, (Reported) Folic Acid (Folic Acid) 1 Mg Tab, 1 MG PO DAILY, (Reported) Insulin Glargine (Lantus Solostar) 100 Unit/Ml Inj, 14 DOSE SC QAM, (Reported) Levothyroxine Sodium (Levoxyl) 100 Mcg Tab, 100 MCG PO DAILY, (Reported) Midodrine HCl (Midodrine HCl) 5 Mg Tab, 5 MG PO TID, (Reported) [place] 3 Polyunsat Fatty Acids (Lovaza 1 gm) 1 Cap Cap, 1 CAP PO DAILY, (Reported) Rosuvastatin Calcium (Crestor) 5 Mg Tab, 5 MG PO QPM, (Reported) Sitagliptin (Januvia) 50 Mg Tab, 50 MG PO DAILY, (Reported) Warfarin Sod (Coumadin) 2 Mg Tab, 2 MG PO 5XW, (Reported) TAKES ON MONDAY, MONDAY, MONDAY, MONDAY AND MONDAY. TAKES AT BEDTIME Warfarin Sod (Warfarin Sodium) 1 Mg Tab, 1 MG PO 2XWK, (Reported) TAKES ON MONDAY AND MONDAY, TAKES AT BEDTIME [iron] , IV PRN, (Reported) GIVEN AT DIALYSIS, UNKNOWN DAYS Scheduled PRN (Tylenol Pm Extra Strength 500-25 mg) 1 Tab Tab, 1 TAB PO QHSP PRN for I NSOMNIA, (Reported) Acetaminophen (Tylenol Extra Strength) 500 Mg Tab, 500 MG PO DAILY PRN for PAIN OR FEVER, (Reported) Nitroglycerin (Nitrostat) 0.4 Mg Subl, 0.4 MG SL PRN PRN for CHEST PAIN, (Reported) Miscellaneous Medications [Patient Comments] , (Reported) PATIENTS FAMILY STATES LAST EVENING WAS THE FIRST TIME THE PATIENT HAS HAD IS PRESCRIBED WARFARIN IN WEEK. HE WAS TO HAVE A PROCEDURE DONE BUT IT WAS POSTPONED AND HIS TOLD THE FAMILY TO RESUME THE WARFARIN BEGINNING WITH THE 1MG DOSE. Allergies Coded Allergies: Contrast Media (Verified Allergy, Unknown, 03/22/18) kidney issues Latex (Verified Allergy, Unknown, 02/10/18) Morphine (Verified Adverse Reaction, Mild, CONFUSION, 03/22/18) DESHAWN BROWN DO Aug 23, 2018 13:31
[2018-08-23] MEDS ORDERED: WARFARIN SOD 5 MG TAB PO ONE (17:00)
--- NOTE | 2018-08-23 18:50 | IPN ---
DATE: 08/23/2018 Mr. Quezada is seen this morning on his bedside. He is feeling well and other than weakness he has no other complaints. His dyspnea has improved and denies any nausea or vomiting. He reports that he ate well this morning. PHYSICAL EXAMINATION Temperature 98 degrees Fahrenheit, heart rate 76 per minute and respiratory rate 20 per minute. Blood pressure is 81/44 mmHg and oxygen saturation 95%. Head is atraumatic. Neck is supple and JVD is mildly elevated. Heart: Sounds are irregular in rhythm and lungs with diminished breath sounds at right base. Abdomen: Soft and nontender. Bowel sounds are normal. Extremities: Without any cyanosis or clubbing. PROBLEMS: 1. Congestive heart failure and pleural effusion. Volume status has improved with dialysis and right thoracentesis. The patient should continue with fluid restriction of 1500 ML per day at home and we will try to maintain his volume status with dialysis as an outpatient. 2. End-stage renal disease. The patient was dialyzed yesterday and next dialysis will be scheduled for August 24 as an outpatient. 3. Anemia. At present his anemia is stable and does not need any intervention. 4. Hypotension. This is a chronic issue and he will continue with midodrine 5 mg three times a day. 5. Atrial fibrillation. The patient remains on amiodarone and Coumadin. This will be managed as an outpatient. 6. DISPOSITION: From renal standpoint, the patient can be discharged to home today and he will return to next hemodialysis on August 24.
[2018-08-24] MEDS ORDERED: WARFARIN SOD 1 MG TAB PO SCH (17:00)
== END 2018-08-23 12:32 | disposition home or self-care (01) | DRG 291 ==
LOC: M ED 20:37 → M ED INP 08-20 00:16 → M PCU 08-20 13:29
PROVIDERS: ADMIT Hospitalist; ATTEND Internal Medicine
PROC: 5A1D70Z Performance of Urinary Filtration, Intermittent, Less than 6 Hours Per Day (ICD-10-PCS; 2018-08-20)
PROC: 0W993ZZ Drainage of Right Pleural Cavity, Percutaneous Approach (ICD-10-PCS; principal; 2018-08-21)
DX: I50.23 Acute on chronic systolic (congestive) heart failure (principal); N18.6 End stage renal disease; E87.2 Acidosis; J90 Pleural effusion, not elsewhere classified; M10.9 Gout, unspecified; K21.9 Gastro-esophageal reflux disease without esophagitis; E78.5 Hyperlipidemia, unspecified; I48.91 Unspecified atrial fibrillation; E11.9 Type 2 diabetes mellitus without complications; E03.9 Hypothyroidism, unspecified; Z79.899 Other long term (current) drug therapy; Z79.4 Long term (current) use of insulin; Z91.041 Radiographic dye allergy status; Z91.040 Latex allergy status; Z88.5 Allergy status to narcotic agent; Z79.01 Long term (current) use of anticoagulants; I25.2 Old myocardial infarction; Z95.1 Presence of aortocoronary bypass graft; Z66 Do not resuscitate; Z95.2 Presence of prosthetic heart valve; I95.9 Hypotension, unspecified; M19.90 Unspecified osteoarthritis, unspecified site

== ENCOUNTER → 2018-09-25 | Outpatient (REF) | payer MEDICARE ==
[~2018-09-25] MED LIST changes: +FEBU40TA PO; +MIDO5TA PO; +PATIENT COMMENTS; +PROC20004 SC; +REQU1TAB14 PO; +SEVE800T3 PO; +TYLE1TAB5 PO; +TYLE500T78 PO; +VITATAB73 PO; +WARF4TAB52 PO; +iron IV
== END ==
LOC: M LAB REF 12:34
PROVIDERS: ATTEND Surgery
DX: Z91.040 Latex allergy status (principal)

== ENCOUNTER 2018-09-27 20:55 | Inpatient (IN) | payer MEDICARE ==
[~2018-09-27] VITALS: Ht 185.4 cm; Wt 77.3 kg
[2018-09-27] MEDS: ASPIRIN 81 MG ENTERIC TAB PO SCH (03:33)
[2018-09-27] MEDS: ROSUVASTATIN 10 MG TAB (CRESTOR) PO SCH (03:33)
[2018-09-27] MEDS ORDERED: NS 500 ML IV ONE ×2 (21:30→23:00)
[2018-09-27 21:47] LABS: BASO % 0.4 % (0.0-1.0); EOS # 0.1 10^3/uL (0.0-0.50); EOS % 0.6 % (0.0-3.0); HEMATOCRIT 38.9 % (42.0-52.0); HEMOGLOBIN 11.8 g/dl (13.5-17.5); LYMPH # 1.8 10^3/uL (1.5-4.5); LYMPH % 17.3 % (24.0-44.0); MEAN CORPUSCULAR HEMOGLOBIN 33.1 pg (27.0-33.0); MEAN CORPUSCULAR HGB CONC 30.3 g/dl (32.0-36.5); MONO # 1.2 10^3/uL (0.0-0.8); MONO % 11.7 % (0.0-5.0); NEUTROPHILS # 7.2 10^3/uL (1.8-7.7); NEUTROPHILS % 69.7 % (36.0-66.0); PLATELET COUNT, AUTOMATED 163 10^3/uL (150-450); RED BLOOD COUNT 3.57 10^6/uL (4.30-6.10); WHITE BLOOD COUNT 10.3 10^3/uL (4.0-10.0)
[2018-09-27 21:52] LABS: INR 1.91; PROTHROMBIN TIME 22.2 SECONDS (12.1-14.4)
[2018-09-27 21:53] LABS: PARTIAL THROMBOPLASTIN TIME 40.3 SECONDS (25.4-37.6)
[2018-09-27] MEDS ORDERED: MIDO10TA PO (22:13)
[2018-09-27] MEDS ORDERED: RENV2TAB PO (22:13)
[2018-09-27] MEDS ORDERED: B COTAB8 PO (22:13)
[2018-09-27] MEDS ORDERED: ASPI1TAB15 PO (22:13)
[2018-09-27] MEDS ORDERED: DOCU100C16 PO (22:13)
[2018-09-27 22:15] LABS: CALCIUM LEVEL 7.5 MG/DL (8.8-10.2); CREATININE FOR GFR 4.42 MG/DL (0.70-1.30); GLOMERULAR FILTRATION RATE 13.6 (>35); POTASSIUM SERUM 4.5 MEQ/L (3.5-5.1)
[2018-09-27 22:29] LABS: INFLUENZA A AMPLIFICATION NEGATIVE (NEGATIVE); INFLUENZA B AMPLIFICATION NEGATIVE (NEGATIVE)
[2018-09-28] MEDS ORDERED: DEXTROSE 50% 50 ML SYRINGE IV PRN (00:30)
[2018-09-28] MEDS ORDERED: DOCUSATE SODIUM 100 MG CAP PO PRN (00:30)
[2018-09-28] MEDS ORDERED: NITROGLYCERIN 0.4 MG SUBL TABLET SL PRN (00:30)
[2018-09-28] MEDS ORDERED: GLUCAGON FOR INJ 1 MG VIAL (J1610) SC PRN (00:30)
[2018-09-28] MEDS ORDERED: BISACODYL 5 MG TAB PO PRN (00:30)
[2018-09-28] MEDS ORDERED: GLUCOSE 4 GM CHEW TABLET PO PRN (00:30)
[2018-09-28] MEDS ORDERED: VANCOMYCIN HCL 1,000 MG, VIAL MATE ADAPTER 1 EACH in D5W 250 ML IV ONE (00:30)
[2018-09-28] MEDS: ACETAMINOPHEN TAB 650MG DOSE (2X325MG) PO PRN (01:07)
--- NOTE | 2018-09-28 02:26 | HPEPDOC ---
[facility] Medical History & Physical Date of Admission Sep 28, 2018 Attending Physician: LIZBETH HONG MD History and Physical CHIEF COMPLAINT: Weakness/Lightheadedness HISTORY OF PRESENT ILLNESS: Patient is an 87 year old male with a past medical history significant for congestive heart failure with EF of 20%, atrial fibri llation, diabetes mellitus type 2, and ESRD on HD Monday, Monday, Monday who presented to the [facility] Emergency Department with complaint of generalized weakness. The patient is accompanied by his daughter at bed side. Patient and daughter state that he had gotten dialysis yesterday and every since then he has felt weak. He admits to chronic hypotension however, states that his blood pressure has recently been lower then his normal. He states that he has developed lightheadedness and has become weaker from his baseline. At home the patient ambulates with a cane however he states that he is currently too weak to ambulate. Patient does admit to some shortness of breath although he feels close to his baseline. He was recently hospitalized in July for a right sided pleur al effusion for which he received a throacentesis. Currently the patient is denying any chest pain, nausea, vomiting, or diarrhea. He does admit to chronic constipation. Patient admits to a chronic cough. He does state that he had one episode of brown sputum production a few days ago. He denies any fevers, chills, or night sweats. In the Emergency department, the patient received a 1L bolus NS for hypotension. His blood pressure did respond. He has remained afebrile in the ER, he does not have an elevated WBC. He does have an elevated lactic acid but otherwise negative workup. He received a chest X-ray in the ER which revealed a right pleural effusion which appears to be relatively stable since his last chest x- ray in July. He currently does not complain of increased shortness of breath. Due to patients hypotension and weakness hospitalist service was consulted and patient was admitted PAST MEDICAL HISTORY: 1. HFrEF (last echo ~1-2 months ago EF 20%) 2. Atrial Fibrillation on Coumadin 3. Diabetes Mellitus Type 2 4. ESRD on HD PAST SURGICAL HISTORY: 1. Aortic Valve Replacement (Porcine) 2. CABG x2 3. Hernia Repair 4. Left Shoulder surgery SOCIAL HISTORY: Lives at home with . Denies alcohol or illicit drug use. Denies tobacco use FAMILY HISTORY: Father is w/ hx of parkinsons; Mother is with hx of heart disease and diabetes ALLERGIES: Please see below. REVIEW OF SYSTEMS: CONSTITUTIONAL: Denies fevers, chills, nightsweats, unintentional weight loss or weight gain HEENT: Denies sore throat, dysphagia. Denies changes in vision CARDIOVASCULAR: Denies chest pain, palpitations, or feelings of the heart racing RESPIRATORY: Admits to shortness of breath chronic. Admits to chronic cough. GASTROINTESTINAL: Complains of constipation. Denies diarrhea, nausea, or vomiting. Admits to hemmoroids and bright red blood per rectum on occasion. GENITOURINARY: Denies dysuria, increased frequency, or urgency SKIN: Admits to rash on buttocks NEUROLOGICAL: Admits to muscle weakness bilateral. Denies changes in speech. Denies changes in vision. Denies vertigo PSYCHIATRIC: Denies depression or anxiety ENDOCRINE: Denies heat intolerance or cold intolerance HEMATOLOGIC/LYMPHATIC: Admits to easy bruising. HOME MEDICATIONS: Please see below. PHYSICAL EXAMINATION: VITAL SIGNS: Temperature 99.4, pulse 77, respiratory rate 24, blood pressure 80/48, pulse oximetry 97% on 3L NC. GENERAL APPEARANCE: Awake alert and oriented. Ill appearing but in no acute distress. Lying on right side in exam room. Cooperative HEENT: Atraumatic, normocephalic. Eyes are non-icteric. Trachea is midline. Nares are patent. Mucous membranes are pink and moist. CARDIOVASCULAR: Irregularly irregular rhythm. Regular rate. 1-2/6 systolic murmur. No clicks or rubs. LUNGS: Decreased breath sounds throughout more so on right. No wheezes, rhonci, or rales. No crackles ABDOMEN: Soft, nondistended, nontender to palpation of all four quadrants. Positive bowel sounds through out EXTREMITIES: Lower extremities bandaged with jill wraps bilaterally. Pitting edema present bilaterally. NEUROLOGICAL: Normal speech. Bilateral upper and lower extremity weakness PSYCHIATRIC: Mood and affect appear appropriate LABORATORY DATA: See below. IMAGING: Chest X-ray demonstrating right sided pleural effusion MICROBIOLOGY: Please see below. ASSESSMENT and PLAN 1. Generalized Weakness -Patient complains of generalized weakness. On exam he does appear ill although in no acute distress. He has received IV NS in the ER. We will not give anymore fluid given his history of HFrEF. -He does appear to be slightly more short of breath compared to his baseline. Plan for Vancomycin 1g and Zosyn 2.25. empiric 2. Hypotension -Patient has a history of hypotension. He is on midirone at home. -He does take Requip for Parkinsons. 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 -Will continue patients midirone. Will hold off on IV fluids 3. ESRD on Hemodialysis MWF -Patient has history of ESRD requiring hemodialysis. He receives his schedule d dialysis Monday, Monday, and Monday. -Nephrology consultation with possible hemodialysis during hospitalization 3.HFrEF - Currently stable 4. Atrial Fibrillation -Patient is pn Amiodarone and coumadin -Currently stable 5. Hypothyroidism -Continue home levothyroxine 6. Diabetes Mellitus Type 2 - Levamir and Sliding scale coverage 7. Sacral Ulcer -Patient has a sacral ulcer currently bandaged. He follows with Dr. Mendez office. -Nonulcerated area of erythema in patients intergluteal cleft 8. History of Porcine aortic valve -Continue Coumadin. Current INR 1.91 may need adjustment to Coumadin dose 9. DVT prophylaxis -Chronically on Coumadin Vital Signs Vital Signs Date Time Temp Pulse Resp B/P (MAP) Pulse Ox O2 Delivery O2 Flow Rate FiO2 09/27/18 23:24 77 28 80/48 (59) 97 Nasal Cannula 3.0 09/27/18 21:45 99.4 Laboratory Data Labs 24H Laboratory Tests 2 09/27/18 21:17: Immature Granulocyte % (Auto) 0.3, White Blood Count 10.3H, Red Blood Count 3.57L, Hemoglobin 11.8L, Hematocrit 38.9L, Mean Corpuscular Volume 109.0H, Mean Corpuscular Hemoglobin 33.1H, Mean Corpuscular Hemoglobin Concent 30.3L, Red Cell Distribution Width 18.6H, Platelet Count 163, Neutrophils (%) (Auto) 69.7H, Lymphocytes (%) (Auto) 17.3L, Monocytes (%) (Auto) 11.7H, Eosinophils (%) (Auto) 0.6, Basophils (%) (Auto) 0.4, Neutrophils # (Auto) 7.2, Lymphocytes # (Auto) 1.8, Monocytes # (Auto) 1.2H, Eosinophils # (Auto) 0.1, Basophils # (Auto) 0.0, Nucleated Red Blood Cells % (auto) 0.0, Prothrombin Time 22.2H, Prothromb Time International Ratio 1.91, Activated Partial Thromboplast Time 40.3H, Anion Gap 12, Glomerular Filtration Rate 13.6L, Lactic Acid Level 3.6*H, Blood Urea Nitrogen 38H, Creatinine 4.42H, Sodium Level 139, Potassium Level 4.5, Chloride Level 101, Carbon Dioxide Level 26, Calcium Level 7.5L 09/27/18 21:51: Influenza Type A (RT-PCR) NEGATIVE, Influenza Type B (RT-PCR) NEGATIVE CBC/BMP Laboratory Tests 09/27/18 21:17 Red Blood Count 3.57 L, Mean Corpuscular Volume 109.0 H, Mean Corpuscular Hemoglobin 33.1 H, Mean Corpuscular Hemoglobin Concent 30.3 L, Red Cell Distribution Width 18.6 H, Neutrophils (%) (Auto) 69.7 H, Lymphocytes (%) (Auto) 17.3 L, Monocytes (%) (Auto) 11.7 H, Eosinophils (%) (Auto) 0.6, Basophils (%) (Auto) 0.4, Neutrophils # (Auto) 7.2, Lymphocytes # (Auto) 1.8, Monocytes # ( Auto) 1.2 H, Eosinophils # (Auto) 0.1, Basophils # (Auto) 0.0, Calcium Level 7.5 L Microbiology Microbiology 09/27/18 Blood Culture, Received Pending Home Medications Scheduled (Evita-Velia) 1 Tab Tab, 1 TAB PO DAILY (Requip) 0.25 Mg Tab, 0.25 MG PO QHS (B Complex/Folic Acid 500-5-200 Mcg-mg-Mcg) 1 Tab Tab, 1 TAB PO DAILY Amiodarone HCl (Amiodarone HCl) 200 Mg Tab, 200 MG PO DAILY Aspirin (Aspirin) 81 Mg Tab, 81 MG PO QHS Febuxostat (Uloric) 40 Mg Tab, 40 MG PO DAILY Insulin Glargine (Lantus Solostar) 100 Unit/Ml Inj, 14 DOSE SC DAILY Levothyroxine Sodium (Levoxyl) 100 Mcg Tab, 100 MCG PO DAILY Midodrine HCl (Midodrine HCl) 10 Mg Tab, 10 MG PO TID [place] 3 Polyunsat Fatty Acids (Lovaza 1 gm) 1 Cap Cap, 1 CAP PO QHS Rosuvastatin Calcium (Crestor) 5 Mg Tab, 5 MG PO QHS Sevelamer Carbonate (Renvela) 800 Mg Tab, 1,600 MG PO PC Sitagliptin (Januvia) 50 Mg Tab, 50 MG PO DAILY Warfarin Sod (Coumadin) 2 Mg Tab, 2 MG PO Q2D TAKES EVERY OTHER NIGHT Warfarin Sod (Warfarin Sodium) 1 Mg Tab, 1 MG PO Q2D TAKES EVERY OTHER NIGHT Scheduled PRN (Tylenol Pm Extra Strength 500-25 mg) 1 Tab Tab, 1 TAB PO QHS PRN for INSOMNIA Acetaminophen (Tylenol Extra Strength) 500 Mg Tab, 500 MG PO DAILY PRN for PAIN OR FEVER Docusate Sodium (Docusate Sodium) 100 Mg Cap, 100 MG PO BID PRN for CONSTIPATION Nitroglycerin (Nitrostat) 0.4 Mg Subl, 0.4 MG SL NITRO PRN for CHEST PAIN Allergies Coded Allergies: Contrast Media (Verified Allergy, Unknown, 03/22/18) kidney issues Latex (Verified Allergy, Unknown, 02/10/18) Morphine (Verified Adverse Reaction, Mild, CONFUSION, 03/22/18) MANUELITO KABA DO Sep 28, 2018 01:40
[2018-09-28] MEDS: PIPERACILLIN/TAZOBACTAM SOD 2.25 GM in D5W MINI-BAG PLUS 50 ML IV SCH ×3 (02:32→22:03)
[2018-09-28] MEDS ORDERED: PILL CRUSHER/CUTTER 1 EACH XX ONE (03:29)
[2018-09-28] MEDS ORDERED: VANCOMYCIN HCL 1,000 MG, VIAL MATE ADAPTER 1 EACH in D5W 250 ML IV SCH (04:15)
--- NOTE | 2018-09-28 05:58 | PHACANCOPD ---
PHARMACY VANCOMYCIN DOSING Pt Demographics Demographics Patient Age:87 , Weight:81.800 , Gender: male Adjusted Body Weight Date: 09/28/18, Adjusted Body Weight: [81.8] Kg ACTUAL WT Events Past 24 Hours Events Past 24 Hours: YES: Dialysis, Change in CrCl, Fever Vancomycin Vancomycin indication: HCAP Vancomycin Target Ranges: 15-20 mcg/ml Vancomycin Load Y/N: No Load Dose Date Time Vancomycin Load Dose: Date: Time: Vancomycin Dose Date: 09/28/18. Current Vancomycin Dose: [ 1 GM HD] Intermittent Dosing?: No Labs Labs Laboratory Tests 09/27/18 21:17 Red Blood Count 3.57 L, Mean Corpuscular Volume 109.0 H, Mean Corpuscular Hemoglobin 33.1 H, Mean Corpuscular Hemoglobin Concent 30.3 L, Red Cell Distrib ution Width 18.6 H, Neutrophils (%) (Auto) 69.7 H, Lymphocytes (%) (Auto) 17.3 L, Monocytes (%) (Auto) 11.7 H, Eosinophils (%) (Auto) 0.6, Basophils (%) (Auto) 0.4, Neutrophils # (Auto) 7.2, Lymphocytes # (Auto) 1.8, Monocytes # (Auto) 1.2 H, Eosinophils # (Auto) 0.1, Basophils # (Auto) 0.0, Calcium Level 7.5 L Micro Microbiology 09/27/18 Blood Culture, Received Pending Creatinine Clearance Date:09/28/18. Creatinine Clearance: 13.8.CALCULATED Pending Labs RANDOM VANCOMYCIN LEVEL 09/29@0600 Assessment and Plan Maintaining Current Dose?: Yes Reason for dose change: No Dose Change Pharmacist Note Pharmacist Note Date: 09/28/18. Pharmacist note:PATIENT ADMITTED W/RT SIDED PLEURAL EFFUSION. ABX regimen includes Pip/Tazo 2.25 gm q8h and Vancomycin per Pharmacy consult. Patient Scr=4.42, Calculated CRCL=13.8,allergies: Contrast,latex.Vancomycin 1 gram administered in ED@00:42. Patient receives dialysis mo--fr will dose with Vancomycin on dialysis days .random levels will be ordered as AM draws.-will continue to follow levels/labs MARILY [facility] Sep 28, 2018 05:58
[2018-09-28] MEDS: LEVOTHYROXINE 100MCG TABLET (0.1MG) PO SCH (06:00)
[2018-09-28 07:06] LABS: HEMATOCRIT 34.1 % (42.0-52.0); HEMOGLOBIN 10.6 g/dl (13.5-17.5); MEAN CORPUSCULAR HEMOGLOBIN 32.5 pg (27.0-33.0); MEAN CORPUSCULAR HGB CONC 31.1 g/dl (32.0-36.5); MEAN CORPUSCULAR VOLUME 104.6 fl (80.0-96.0); PLATELET COUNT, AUTOMATED 150 10^3/uL (150-450); RED BLOOD COUNT 3.26 10^6/uL (4.30-6.10); WHITE BLOOD COUNT 11.7 10^3/uL (4.0-10.0)
--- NOTE | 2018-09-28 07:12 | ECGEPIP ---
Stationary ECG Study [facility] - ED Test Date: 2018-09-27 Pat Name: DINORA NICOLE Department: Room: [place] [address] Gender: M Tile Sorter: [id number] : 1930 Requested By: MILAGROS ROY Order Number: [id number] Reading MD: Kiet Redmond Measurements Intervals [place] Rate: 77 P: 139 AK: 288 QRS: -45 QRSD: 175 T: 138 QT: 474 QTc: 539 Interpretive Statements SINUS RHYTHM WITH FIRST DEGREE AV BLOCK LEFT AXIS DEVIATION LEFT BUNDLE BRANCH BLOCK Electronically Signed On 09-28-2018 7:12:14 EST by Kiet Redmond
[2018-09-28 07:33] LABS: CALCIUM LEVEL 7.7 MG/DL (8.8-10.2); CREATININE FOR GFR 4.95 MG/DL (0.70-1.30); GLOMERULAR FILTRATION RATE 11.9 (>35); POTASSIUM SERUM 4.9 MEQ/L (3.5-5.1)
[2018-09-28 07:45] VITALS: BP 88/55
--- NOTE | 2018-09-28 08:18 | REP ---
Portable chest, single AP upright view, 09:40 p.m.: Comparisons are the portable chest of 08/19/2018 and PA and lateral chest of 08/21/2018. There is a right pleural effusion, not significantly changed in size from the comparison portable chest of 08/19/2018. Lung pre[place] otherwise clear and unchanged. There is cardiomegaly, unchanged. There is a right IJ central venous catheter with the tip in the right atrium, unchanged. Sternotomy wires and cardiac valve replacement are unchanged. Impression: Right pleural effusion and cardiomegaly. No significant change. Electronically Signed by Sandro Stewart MD 09/28/2018 08:09 A
[2018-09-28] MEDS: SENOKOT S TAB PO SCH ×2 (09:00→21:00)
[2018-09-28] MEDS: AMIODARONE 200 MG TAB (PACERONE) PO SCH (09:10)
[2018-09-28] MEDS: MIDODRINE 5 MG TAB PO SCH ×3 (09:11→15:06)
[2018-09-28] MEDS: FEBUXOSTAT 40 MG TABLET (ULORIC) PO SCH (09:11)
[2018-09-28] MEDS: HumaLOG INSULIN (NovoLOG) PER UNIT SC SCH ×3 (09:12→19:18)
[2018-09-28] MEDS: LEVEMIR (INSULIN DETEMIR) 1 UNITS/0.01ML SC SCH (09:13)
[2018-09-28 14:00] VITALS: BP 80/44
[2018-09-28] MEDS: **VANCO AFTER HD** MISC XX SCH (16:00)
[2018-09-28] MEDS ORDERED: WARFARIN SOD 2 MG TAB PO SCH (17:00)
[2018-09-28] MEDS ORDERED: HEPARIN 1,000 UNITS/ML 10ML VIAL (FOR RADIOLOGY& DIALYSIS ONLY) XX ONE (17:00)
[2018-09-28] MEDS: ROSUVASTATIN 10 MG TAB (CRESTOR) PO SCH (21:55)
[2018-09-28] MEDS: ASPIRIN 81 MG ENTERIC TAB PO SCH (21:55)
[2018-09-28 22:00] VITALS: BP 83/43
[2018-09-29] MEDS: PIPERACILLIN/TAZOBACTAM SOD 2.25 GM in D5W MINI-BAG PLUS 50 ML IV SCH ×2 (01:20→10:15)
[2018-09-29 05:29] LABS: HEMATOCRIT 31.8 % (42.0-52.0); HEMOGLOBIN 9.7 g/dl (13.5-17.5); MEAN CORPUSCULAR HEMOGLOBIN 32.9 pg (27.0-33.0); MEAN CORPUSCULAR HGB CONC 30.5 g/dl (32.0-36.5); MEAN CORPUSCULAR VOLUME 107.8 fl (80.0-96.0); PLATELET COUNT, AUTOMATED 136 10^3/uL (150-450); RED BLOOD COUNT 2.95 10^6/uL (4.30-6.10); WHITE BLOOD COUNT 9.1 10^3/uL (4.0-10.0)
[2018-09-29 05:53] LABS: CALCIUM LEVEL 7.6 MG/DL (8.8-10.2); CREATININE FOR GFR 3.87 MG/DL (0.70-1.30); GLOMERULAR FILTRATION RATE 15.8 (>35); POTASSIUM SERUM 4.3 MEQ/L (3.5-5.1)
[2018-09-29 06:00] VITALS: BP 106/55
[2018-09-29] MEDS: LEVOTHYROXINE 100MCG TABLET (0.1MG) PO SCH (06:12)
[2018-09-29] MEDS: HumaLOG INSULIN (NovoLOG) PER UNIT SC SCH ×3 (07:30→17:45)
--- NOTE | 2018-09-29 08:53 | CR ---
DATE OF CONSULTATION: 09/28/2018 REQUESTING PHYSICIAN: Dr. Valdo Richard REASON FOR CONSULTATION: Management of end-stage renal disease on hemodialysis. HISTORY OF PRESENT ILLNESS: Patient is an 87-year-old male with the past medical history of end-stage renal disease on hemodialysis on Monday, Monday, Monday maintenance schedule, history of systolic congestive heart failure with ejection fraction 20%, atrial fibrillation, chronic hypotension, type 2 diabetes mellitus, anemia of chronic renal failure, secondary hyperparathyroidism of renal origin, coronary artery disease, and other comorbid conditions mentioned below. Patient has been deteriorating over the past several months. He presented to the emergency room with complaint of generalized weakness, missed his outpatient hemodialysis today. His daughter and [id number] are at the bedside and supplement the history. Reports that his blood pressure at home has been lower than his usual readings, which are systolic around the 80s. Patient has also had shortness of breath. He has been mostly bed bound and is requiring [id number] care. He has recently had recurrent right-sided pleural effusion, for which he has had thoracentesis in the past. Patient complains of a chronic cough. He denies any fevers or chills. In the emergency room, patient received 1 liter of intravenous (IV) fluids for hypotension. Chest x-ray showed a right pleural effusion. His blood pressures over his stay thus far has been systolic around the 80s on his usual midodrine. Nephrology service was consulted for management of his chronic renal failure. PAST MEDICAL HISTORY AND PAST SURGICAL HISTORY: As mentioned above, systolic congestive heart failure with ejection fraction 20%, atrial fibrillation, chronic hypotension, type 2 diabetes, end-stage renal disease on hemodialysis, aortic valve replacement, coronary artery bypass graft, hernia repair, shoulder surgery, PermCath placement, anemia of chronic renal failure, secondary hyperparathyroidism of renal origin, hypothyroidism. SOCIAL HISTORY: Lives at home. His daughter and his [id number] are his [id number] caregivers. There is no alcohol, illicit drug, or tobacco use reported. FAMILY HISTORY: Father is of Parkinson's. Mother is with heart disease and diabetes. ALLERGIES: CONTRAST MEDIA, LATEX, MORPHINE. HOME MEDICATIONS: Are reviewed and include - Evita-Velia - Requip - amiodarone 200 mg by mouth daily - aspirin 81 mg by mouth nightly - Uloric 40 mg by mouth daily - insulin - Synthroid 100 mcg by mouth daily - midodrine 10 mg by mouth three times a day - Lovaza 1 gram by mouth nightly - Crestor 5 mg by mouth nightly - Renvela 1600 mg by mouth with meal - Januvia 50 mg by mouth daily - Coumadin REVIEW OF SYSTEMS: CONSTITUTIONAL: Patient denies fevers or chills. He reports generalized weakness, fatigue, and decreased mobility. EYES: He denies visual changes or tearing. EARS, NOSE AND THROAT: Denies sore throat, dysphagia. CARDIOVASCULAR: Has a history of congestive heart failure and atrial fibrillation. Denies chest pain. RESPIRATORY: Admits to shortness of breath and cough. GASTROINTESTINAL (GI): Denies diarrhea, nausea, or vomiting. Has had a so-so appetite he reports. GENITOURINARY: Denies dysuria, hematuria. SKIN: Reports bed sores and some mild breakdown. ENDOCRINE: He reports diabetes and hypothyroidism. MUSCULOSKELETAL: He reports deconditioning and debility. NEUROLOGIC: He denies syncope or seizure. HEMATOLOGIC: He reports anticoagulant use and anemia of chronic renal failure. VITAL SIGNS: Temperature 97.6, pulse 78, respiratory rate 17, blood pressure 80/44, saturating 97% on 3 liters nasal cannula. General: Patient is seen sitting out of bed to the chair, eating. Elderly male, no acute respiratory distress. Extraocular muscles are intact. His tongue is moist. There is a nasal cannula in place. The jugular veins are elevated. Cardiac: S1, S2. 1+ peripheral edema. Irregularly, irregular. Systolic murmur. Lungs: Diminished breath sounds at the bases, more so on the right. Abdomen: Is soft and nontender. Extremities: There are some dressings on his lower extremities. There is 1+ pitting edema. Neurologic: He answers simple questions appropriately and is cooperatively with physical exam. Musculoskeletal: He is weak. There is muscle wasting. LABS: White count 11.7, hemoglobin 10.6, platelets 150. Sodium 138, potassium 4.9, bicarbonate 24. Respiratory viral panel is negative. INPATIENT MEDICATIONS: - Patient received 1 liter of intravenous (IV) fluid - He is receiving renally-dosed vancomycin and Zosyn 2.25 gram IV every 8 - Tylenol as needed - amiodarone 200 mg by mouth daily - aspirin 81 mg by mouth daily - Uloric 40 mg by mouth daily - insulin - Synthroid 100 mcg by mouth daily - midodrine 10 mg by mouth three times a day - rosuvastatin 5 mg by mouth quantity not sufficient - Coumadin PROBLEMS: 1. End-stage renal disease on hemodialysis on Monday, Monday, Monday schedule. He is very difficult to dialyze as an outpatient because of his severe systolic heart failure and chronic hypotension despite maximal midodrine. He have trouble with ultrafiltration and fluid removal because of his severe hypotension of hemodialysis. His clinic condition has deteriorated significantly over the past 6 months. I feel that continuing dialysis is futile care, and have discussed the same with his daughter and [id number], who are in agreement. The subject of hospice has been discussed by myself with the patient as well. At present, we will continue ineffective hemodialysis treatment until the patient can come to a decision. He cannot tolerate a general hemodialysis any longer at this point. 2. Systolic congestive heart failure. Ejection fraction 20%. There is hypervolemia on exam. There is recurrent right pleural effusion. Volume status is principally regulated via dialysis; however, patient has severe chronic hypotension despite maximal midodrine. He is not able to tolerate ultrafiltration and fluid removal. His prognosis is very poor. His family understands this. Will discuss further with the patient. 3. Atrial fibrillation. Patient continues on amiodarone and Coumadin. All his rate controlling medications have been discontinued over the past several months due to recurrent and severe hypotension. 4. Anemia of chronic renal failure, stable. No intervention needed at present. 5. Chronic, severe hypotension. Continue with midodrine 10 mg by mouth three times a day. Would hold off on intravenous (IV) fluid. His hypotension is a chronic issue. He is already volume overloaded. His prognosis is poor. Thank you for involving me in the care of Mr. Quezada. I will be happy to follow him along with you.
[2018-09-29 09:17] LABS: ALBUMIN 2.2 GM/DL (3.2-5.2); BILIRUBIN,DIRECT 0.3 MG/DL (0.0-0.2); BILIRUBIN,TOTAL 0.6 MG/DL (0.2-1.0); TOTAL PROTEIN 5.7 GM/DL (6.4-8.2)
[2018-09-29 10:00] VITALS: BP 82/58
[2018-09-29] MEDS: FEBUXOSTAT 40 MG TABLET (ULORIC) PO SCH (10:09)
[2018-09-29] MEDS: AMIODARONE 200 MG TAB (PACERONE) PO SCH (10:10)
[2018-09-29] MEDS: MIDODRINE 5 MG TAB PO SCH ×3 (10:10→16:11)
[2018-09-29] MEDS: SENOKOT S TAB PO SCH ×2 (10:10→21:00)
[2018-09-29] MEDS: LEVEMIR (INSULIN DETEMIR) 1 UNITS/0.01ML SC SCH (10:15)
[2018-09-29 11:30] VITALS: BP 80/40
--- NOTE | 2018-09-29 12:37 | IPNPDOC ---
Subjective Date Seen The patient was seen on 09/29/18. Subjective Chief Complaint/HPI Patient seen and examined at the bedside. Reports that his respiratory status is somewhat improved. He denies any acute overnight events. Objective Physical Examination General Exam: Positive: Alert, Cooperative, No Acute Distress ENT Exam: Positive: Atraumatic, Mucous membr. moist/pink Chest Exam: Positive: Diminished Heart Exam: Positive: Rate Normal, Normal S1, Normal S2 Abdomen Exam: Positive: Soft; Negative: Tenderness Extremity Exam: Positive: Other (b/l LE wrapped in bandaging) Psych Exam: Positive: Oriented x 3 Assessment /Plan Plan/VTE VTE Prophylaxis Ordered?: Yes Plan Progressive SOB, Weakness likely 2/2 Right Sided Pleural Effusion Patient has had worsening cough and SOB which is likely attributable to his underlying decompensation of diastolic and systolic congestive heart failure with an ejection fraction of 20%. The patient has been rather difficult to volume optimize as he is chronically hypotensive even while on a maximum dose of midodrine, and also hypoalbuminemic. Consequently, the patient has been a challenge to dialyze and have ultrafiltration done. It appears that the patient has a recurrent right-sided pleural effusion for which he had a thoracentesis done in June and July with an approximate drainage of 500 mL each time. The patient's respiratory status improved thereafter. We will likely need another thoracentesis to improve the patient's respiratory status. We will hold the patient's Coumadin at this time. Antibiotics have been discontinued as it is less likely that the patient has an underlying pneumonia based on his clinical presentation. 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 Huizar's office. History of Porcine aortic valve On Coumadin at baseline--currently being held 2/2 need for thoracentesis Risks, benefits, and alternatives to holding AC discussed with patient/family Dyslipidemia Cont Statin Gout Cont Uloric DVT prophylaxis On Coumadin Poor Mcfp Prognosis--discussed at length with the patient and family. Code Status: DNR VS, I&O, 24H, Fishbone Vital Signs/I&O Vital Signs Date Time Temp Pulse Resp B/P (MAP) Pulse Ox O2 Delivery O2 Flow Rate FiO2 09/29/18 10:00 97.7 80 18 82/58 (66) 97 4.0 09/28/18 07:46 Nasal Cannula I&O- Last 24 Hours up to 6 AM 09/29/18 05:59 Intake Total 780 ml Output Total 0 ml Balance 780 ml Laboratory Data 24H LABS Laboratory Tests 2 09/28/18 19:04: Bedside Glucose (Misc Panel) 115H 09/28/18 20:56: Bedside Glucose (Misc Panel) 112H 09/29/18 05:19: Nucleated Red Blood Cells % (auto) 0.0, Anion Gap 10, Glomerular Filtration Rate 15.8L, Calcium Level 7.6L, Aspartate Amino Transf (AST/SGOT) 73H, Alanine Ami notransferase (ALT/SGPT) 50, Alkaline Phosphatase 298H, Total Bilirubin 0.6, Direct Bilirubin 0.3H, Total Protein 5.7L, Albumin 2.2L, Albumin/Globulin Ratio 0.63L, Random Vancomycin Level 16.6 09/29/18 09:16: Bedside Glucose (Misc Panel) 181H 09/29/18 11:28: Bedside Glucose (Misc Panel) 212H CBC/BMP Laboratory Tests 09/29/18 05:19 Red Blood Count 2.95 L, Mean Corpuscular Volume 107.8 H, Mean Corpuscular Hemoglobin 32.9, Mean Corpuscular Hemoglobin Concent 30.5 L, Red Cell Distribution Width 18.4 H Microbiology Microbiology 09/27/18 Blood Culture - Preliminary, Resulted No growth after 24 hours . All specim... 09/28/18 MRSA Screen, Received Pending 09/27/18 Respiratory Virus Panel (PCR) ([facility]) - Final, Complete LIZBETH HONG MD Sep 29, 2018 12:37
[2018-09-29 14:30] VITALS: BP 78/43
[2018-09-29] MEDS: **VANCO AFTER HD** MISC XX SCH (15:55)
[2018-09-29] MEDS ORDERED: WARFARIN SOD 1 MG TAB PO SCH (17:00)
[2018-09-29 20:50] VITALS: BP 86/46
[2018-09-29] MEDS: ASPIRIN 81 MG ENTERIC TAB PO SCH (21:12)
[2018-09-29 22:00] VITALS: BP 70/42
[2018-09-30] MEDS: LEVOTHYROXINE 100MCG TABLET (0.1MG) PO SCH (05:02)
[2018-09-30 06:00] VITALS: BP 86/53
[2018-09-30 06:01] LABS: HEMATOCRIT 34.3 % (42.0-52.0); HEMOGLOBIN 10.4 g/dl (13.5-17.5); MEAN CORPUSCULAR HEMOGLOBIN 32.4 pg (27.0-33.0); MEAN CORPUSCULAR HGB CONC 30.3 g/dl (32.0-36.5); MEAN CORPUSCULAR VOLUME 106.9 fl (80.0-96.0); PLATELET COUNT, AUTOMATED 159 10^3/uL (150-450); RED BLOOD COUNT 3.21 10^6/uL (4.30-6.10)
[2018-09-30 06:15] LABS: INR 1.85; PROTHROMBIN TIME 21.7 SECONDS (12.1-14.4)
[2018-09-30 06:30] LABS: CALCIUM LEVEL 7.9 MG/DL (8.8-10.2); CREATININE FOR GFR 5.3 MG/DL (0.70-1.30); POTASSIUM SERUM 4.7 MEQ/L (3.5-5.1)
[2018-09-30] MEDS: FEBUXOSTAT 40 MG TABLET (ULORIC) PO SCH (07:45)
[2018-09-30] MEDS: MIDODRINE 5 MG TAB PO SCH ×3 (07:45→16:57)
[2018-09-30] MEDS: SENOKOT S TAB PO SCH ×3 (07:46→21:54)
[2018-09-30] MEDS: AMIODARONE 200 MG TAB (PACERONE) PO SCH (07:46)
[2018-09-30] MEDS: HumaLOG INSULIN (NovoLOG) PER UNIT SC SCH ×3 (07:47→16:58)
[2018-09-30] MEDS: LEVEMIR (INSULIN DETEMIR) 1 UNITS/0.01ML SC SCH (07:47)
[2018-09-30 07:55] VITALS: BP 86/43
[2018-09-30] MEDS: rOPINIRole 0.25 MG TAB(REQUIP) PO SCH ×3 (12:33→21:54)
--- NOTE | 2018-09-30 12:39 | IPNPDOC ---
Subjective Date Seen The patient was seen on 09/30/18. Subjective Chief Complaint/HPI Patient seen and examined at bedside. No acute overnight events noted. Objective Physical Examination General Exam: Positive: Alert, Cooperative, No Acute Distress ENT Exam: Positive: Atraumatic, Mucous membr. moist/pink Chest Exam: Positive: Diminished Heart Exam: Positive: Rate Normal, Normal S1, Normal S2 Abdomen Exam: Positive: Soft; Negative: Tenderness Extremity Exam: Positive: Other (b/l LE wrapped in bandaging) Psych Exam: Positive: Oriented x 3 Assessment /Plan Plan/VTE VTE Prophylaxis Ordered?: Yes Plan Progressive SOB, Weakness likely 2/2 Right Sided Pleural Effusion Patient has had worsening cough and SOB which is likely attributable to his underlying decompensation of diastolic and systolic congestive heart failure with an ejection fraction of 20%. The patient has been rather difficult to volume optimize as he is chronically hypotensive even while on a maximum dose of midodrine, and also hypoalbuminemic. Consequently, the patient has been a challenge to dialyze and have ultrafiltration done. It appears that the patient has a recurrent right-sided pleural effusion for which he had a thoracentesis done in June and July with an approximate drainage of 500 mL each time. The patient's respiratory status improved thereafter. We will likely need another thoracentesis to improve the patient's respiratory status. We will hold the patient's Coumadin at this time. Antibiotics have been discontinued as it is less likely that the patient has an underlying pneumonia based on his clinical presentation. 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 Huizar's office. History of Porcine aortic valve On Coumadin at baseline--currently being held 2/2 need for thoracentesis Risks, benefits, and alternatives to holding AC discussed with patient/family Dyslipidemia Cont Statin Gout Cont Uloric DVT prophylaxis On Coumadin Poor Skilled Nursing Prognosis--discussed at length with the patient and family. Code Status: DNR VS, I&O, 24H, Fishbone Vital Signs/I&O Vital Signs Date Time Temp Pulse Resp B/P (MAP) Pulse Ox O2 Delivery O2 Flow Rate FiO2 09/30/18 07:55 86/43 (57) 09/30/18 06:00 97.4 72 18 99 4.0 09/28/18 07:46 Nasal Cannula I&O- Last 24 Hours up to 6 AM 09/30/18 06:00 Intake Total 1080 ml Output Total 1750 ml Balance -670 ml Laboratory Data 24H LABS Laboratory Tests 2 09/29/18 16:47: Bedside Glucose (Misc Panel) 105 09/29/18 20:42: Bedside Glucose (Misc Panel) 114H 09/30/18 05:22: Nucleated Red Blood Cells % (auto) 0.0, Prothrombin Time 21.7H, Prothromb Time International Ratio 1.85, Anion Gap 10, Glomerular Filtration Rate 11.0L, Blood Urea Nitrogen 55#H, Creatinine 5.30H, Sodium Level 136, Potassium Level 4.7, Chloride Level 102, Carbon Dioxide Level 24, Calcium Level 7.9L CBC/BMP Laboratory Tests 09/30/18 05:22 Red Blood Count 3.21 L, Mean Corpuscular Volume 106.9 H, Mean Corpuscular Hemoglobin 32.4, Mean Corpuscular Hemoglobin Concent 30.3 L, Red Cell Distribution Width 18.0 H, Calcium Level 7.9 L Microbiology Microbiology 09/27/18 Blood Culture - Preliminary, Resulted No Growth after 48 hours. All Specime... 09/28/18 MRSA Screen - Final, Complete 09/27/18 Respiratory Virus Panel (PCR) ([facility]) - Final, Complete LIZBETH HONG MD Sep 30, 2018 12:39
[2018-09-30 14:00] VITALS: BP 115/56
[2018-09-30] MEDS: **VANCO AFTER HD** MISC XX SCH (16:00)
[2018-09-30] MEDS: ASPIRIN 81 MG ENTERIC TAB PO SCH (21:54)
[2018-09-30 22:00] VITALS: BP 84/54
[2018-10-01 02:00] VITALS: BP 86/50
[2018-10-01 06:00] VITALS: BP 82/52
[2018-10-01] MEDS: LEVOTHYROXINE 100MCG TABLET (0.1MG) PO SCH (06:01)
[2018-10-01 06:22] LABS: INR 1.6; PROTHROMBIN TIME 19.3 SECONDS (12.1-14.4)
[2018-10-01 06:29] LABS: HEMATOCRIT 34.6 % (42.0-52.0); HEMOGLOBIN 10.5 g/dl (13.5-17.5); MEAN CORPUSCULAR HEMOGLOBIN 32.9 pg (27.0-33.0); MEAN CORPUSCULAR HGB CONC 30.3 g/dl (32.0-36.5); MEAN CORPUSCULAR VOLUME 108.5 fl (80.0-96.0); PLATELET COUNT, AUTOMATED 163 10^3/uL (150-450); RED BLOOD COUNT 3.19 10^6/uL (4.30-6.10)
[2018-10-01 06:32] LABS: CALCIUM LEVEL 7.6 MG/DL (8.8-10.2); CREATININE FOR GFR 6.5 MG/DL (0.70-1.30); GLOMERULAR FILTRATION RATE 8.7 (>35); POTASSIUM SERUM 4.9 MEQ/L (3.5-5.1)
[2018-10-01] MEDS: rOPINIRole 0.25 MG TAB(REQUIP) PO SCH ×3 (07:55→20:55)
[2018-10-01] MEDS: SENOKOT S TAB PO SCH ×2 (07:55→20:55)
[2018-10-01] MEDS: FEBUXOSTAT 40 MG TABLET (ULORIC) PO SCH (07:55)
[2018-10-01] MEDS: AMIODARONE 200 MG TAB (PACERONE) PO SCH (07:55)
[2018-10-01] MEDS: LEVEMIR (INSULIN DETEMIR) 1 UNITS/0.01ML SC SCH (07:56)
[2018-10-01] MEDS: HumaLOG INSULIN (NovoLOG) PER UNIT SC SCH ×3 (07:56→17:26)
[2018-10-01] MEDS: MIDODRINE 5 MG TAB PO SCH ×3 (08:59→17:27)
[2018-10-01 09:04] VITALS: BP 84/46
[2018-10-01 10:00] VITALS: BP 108/58
--- NOTE | 2018-10-01 10:58 | IPN ---
DATE OF VISIT: 09/29/2018 Mr. Quezada is seen this morning on his bedside. His family is present in the room as they wanted to discuss his condition and future plans of care. Patient has been very weak and not doing very well. His blood pressure usually in 70s to 80s and we have great difficulty in dialyzing him. We have not been able to remove much fluid due to low blood pressure. Yesterday, he was given intravenous albumin during dialysis and still blood pressure did not improve. Family has been discussing about possibility of hospice care. However, patient has not been quite ready for it. In any event, he is sitting in the chair at the time of my visit and still weak, but denies any worsening of his dyspnea or chest pain. He does have history of recurrent right pleural effusion, which has been drained previously. He denies any nausea or vomiting and reports good appetite. On physical exam, temperature 97.7 degrees Fahrenheit, heart rate 80 per minute and respiratory rate 18 per minute. Blood pressure 82/58 mmHg and oxygen saturation 97% on 4 liters oxygen. His head is atraumatic. There is no oral thrush or ulcers. Neck is supple and jugular venous distention (JVD) is not visible sitting upright. His lungs have diminished breath sounds at lower half on the right side and a few basilar rales on the left. His heart sounds are irregular in rhythm with a systolic murmur but no pericardial friction rub. Abdomen soft and nontender and bowel sounds are normal. Extremities have no cyanosis or clubbing. Richie wraps are present on lower extremities with 1+ edema. Neurologically, he is awake, alert and at his baseline mentation. Today's labs show WBC count 9.1, hemoglobin 9.7 and hematocrit 31.8. Sodium 139, potassium 4.3, CO2 26, BUN 34 and creatinine 3.87. Total protein 5.7 and albumin 2.2. Blood cultures have been negative so far. PROBLEMS: 1. End-stage renal disease. Patient was partially dialyzed yesterday. His dialysis has been somewhat problematic due to hypotension during and even without dialysis. He has chronic hypotension with blood pressure in 70s and 80s. He clearly stated that he wishes to continue dialysis and does not wish to stop at this point. His family was present and his answers were quite clear. 2. Congestive heart failure and recurrent right pleural effusion. Patient remains weak and has severe systolic dysfunction. We will try to remove fluid with ultrafiltration today and see how he tolerates. We will also try to get his right thoracentesis done on Monday. 3. Hypotension. Patient has chronic hypotension and remains on midodrine 10 mg three times a day. We will continue with the same. 4. History of atrial fibrillation. He remains on amiodarone and Coumadin. His ventricular rate is very well controlled. 5. Generalized weakness and deconditioning. His muscles are quite weak and he has difficulty moving. His long-term prognosis remains poor. I am going to stop his Crestor for now as he does not have any long-term benefit from it. This might help with his generalized weakness and deconditioning. 6. Gout. At present, he is asymptomatic and remains on Uloric 40 mg daily, which will be continued. I discussed with the family and have advised that we will continue our efforts to dialyze him and maintain his volume status as good as possible. Once he reaches a point where he could not tolerate dialysis, then we will discuss about hospice care once again. At this point, patient clearly stated that he is not quite ready for hospice care.
[2018-10-01] MEDS ORDERED: HEPARIN 1,000 UNITS/ML 10ML VIAL (FOR RADIOLOGY& DIALYSIS ONLY) IV ONE (11:15)
[2018-10-01] MEDS ORDERED: HEPARIN 1,000 UNITS/ML 10ML VIAL (FOR RADIOLOGY& DIALYSIS ONLY) XX ONE (11:15)
[2018-10-01] MEDS ORDERED: diphenhydrAMINE 25 MG CAP PO PRN (11:45)
--- NOTE | 2018-10-01 14:08 | IPNPDOC ---
Subjective Date Seen The patient was seen on 10/01/18. Subjective Chief Complaint/HPI Patient seen and examined at the bedside. Reports that his respiratory status is somewhat improved today. His thoracentesis has gotten pushed back until tomorrow as his INR is still above 1.5. Objective Physical Examination General Exam: Positive: Alert, Cooperative, No Acute Distress ENT Exam: Positive: Atraumatic, Mucous membr. moist/pink Chest Exam: Positive: Diminished Heart Exam: Positive: Rate Normal, Normal S1, Normal S2 Abdomen Exam: Positive: Soft; Negative: Tenderness Extremity Exam: Positive: Other (b/l LE wrapped in bandaging) Psych Exam: Positive: Oriented x 3 Assessment /Plan Plan/VTE VTE Prophylaxis Ordered?: Yes Plan Progressive SOB, Weakness likely 2/2 Right Sided Pleural Effusion Patient has had worsening cough and SOB which is likely attributable to his underlying decompensation of diastolic and systolic congestive heart failure with an ejection fraction of 20%. The patient has been rather difficult to volume optimize as he is chronically hypotensive even while on a maximum dose of midodrine, and also hypoalbuminemic. Consequently, the patient has been a challenge to dialyze and have ultrafiltration done. It appears that the patient has a recurrent right-sided pleural effusion for which he had a thoracentesis done in June and July with an approximate drainage of 500 mL each time. The patient's respiratory status improved thereafter. We will likely need another thoracentesis to improve the patient's respiratory status. Tentatively scheduled for tomorrow. We will hold the patient's Coumadin at this time. Antibiotics have been discontinued as it is less likely that the patient has an underlying pneumonia based on his clinical presentation. 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 Huizar's office. History of Porcine aortic valve On Coumadin at baseline--currently being held 2/2 need for thoracentesis Risks, benefits, and alternatives to holding AC discussed with patient/family Dyslipidemia Cont Statin Gout Cont Uloric DVT prophylaxis On Coumadin Poor Marketing Content Manager Prognosis--discussed at length with the patient and family. Code Status: DNR Dispo--pending clinical improvement, Thoracentesis tomorrow. VS, I&O, 24H, Fishbone Vital Signs/I&O Vital Signs Date Time Temp Pulse Resp B/P (MAP) Pulse Ox O2 Delivery O2 Flow Rate FiO2 10/01/18 10:00 97.6 67 17 108/58 (75) 97 4.0 09/28/18 07:46 Nasal Cannula I&O- Last 24 Hours up to 6 AM 10/01/18 06:00 Intake Total 960 ml Output Total 0 ml Balance 960 ml Laboratory Data 24H LABS Laboratory Tests 2 09/30/18 16:26: Bedside Glucose (Misc Panel) 115H 10/01/18 05:29: Nucleated Red Blood Cells % (auto) 0.0, Prothrombin Time 19.3H, Prothromb Time International Ratio 1.60, Anion Gap 13, Glomerular Filtration Rate 8.7L, Blood Urea Nitrogen 64H, Creatinine 6.50H, Sodium Level 135L, Potassium Level 4.9, Chloride Level 102, Carbon Dioxide Level 20L, Calcium Level 7.6L 10/01/18 11:12: Bedside Glucose (Misc Panel) 88 CBC/BMP Laboratory Tests 10/01/18 05:29 Red Blood Count 3.19 L, Mean Corpuscular Volume 108.5 H, Mean Corpuscular Hemoglobin 32.9, Mean Corpuscular Hemoglobin Concent 30.3 L, Red Cell Distribution Width 17.7 H, Calcium Level 7.6 L Microbiology Microbiology 09/27/18 Blood Culture - Preliminary, Resulted No Growth after 72 hours. All specime... 09/28/18 MRSA Screen - Final, Complete 09/27/18 Respiratory Virus Panel (PCR) ([facility]) - Final, Complete LIZBETH HONG MD Oct 01, 2018 14:07
--- NOTE | 2018-10-01 14:48 | IPN ---
DATE OF VISIT: 09/30/2018 Mr. Quezada is seen this morning on his bedside. His family is present in the room. The patient laying in the bed with head end elevated at about 65 degrees. He reports that last night he had some problem with restless legs and could not sleep very well. He did have good breakfast this morning. He denies any dyspnea or chest pain. The patient underwent a 2-hour dialysis yesterday for ultrafiltration and 1 liter of fluid was removed. He does have problem with chronic hypotension and has been on midodrine 10 mg t.i.d. We have discussed with him about the possibility of stopping dialysis and considering hospice care. However, patient wishes to continue with current management and does not wish to go on hospice as yet. On physical exam, temperature 97.4 degrees Fahrenheit, heart rate 72 per minute and respiratory rate 18 per minute. Blood pressure 86/43 mmHg and oxygen saturation 99% on 4 liters oxygen. His head is atraumatic. Neck is supple and JVD is mildly elevated. There is no oral thrush or ulcers. Heart sounds are irregular in rhythm and lungs have diminished breath sounds on the right lower half. Abdomen soft and nontender. Bowel are normal. Extremities have no cyanosis or clubbing. Lower extremity edema is 1+. He has Richie wraps on his legs. Neurologically he is awake, alert and oriented times three. Today's labs show WBC count 9.0, hemoglobin 10.4 and hematocrit 34.3. Platelets 159. Sodium 136, potassium 4.7, CO2 24, BUN 55 and creatinine 5.3. PROBLEMS: 1. Chronic systolic congestive heart failure. His volume status is reasonably well-compensated at present and he has chronic hypoxemia which is essentially unchanged. We are going to try to manage his volume status with dialysis as much as possible. The patient needs to follow a fluid restriction of about 1200 mL per day. 2. End-stage renal disease. The patient remains dialysis dependent and we will plan to dialyze him again tomorrow. At present there is no emergent need for dialysis today. 3. Right pleural effusion. The patient has recurrent right pleural effusion. He is not a suitable candidate for a chest tube placement. We will get his pleural effusion drained tomorrow and then try to keep him on dry side with dialysis as much as possible. 4. Anemia. His anemia is stable and no changes are being made today. 5. Restless leg syndrome. Patient has chronic restless leg syndrome. He was on Requip at home at bedtime. I am going to put him on Requip 0.25 mg t.i.d. 6. Hypotension. Blood pressure has been chronically low and he remains on midodrine 10 mg t.i.d. which will be continued.
[2018-10-01] MEDS: **VANCO AFTER HD** MISC XX SCH (16:00)
[2018-10-01 17:02] VITALS: BP 85/49
--- NOTE | 2018-10-01 18:12 | IPN ---
DATE: 10/01/2018 Mr. Quezada is seen this morning on his bedside. He is about the same but did not sleep very well last night due to a patch that was put on his sacral area for decubitus ulcer. He did have some dyspnea this morning but denies any fever, chills, nausea or vomiting. He feels that his restless legs are somewhat better with the Requip that was started yesterday. PHYSICAL EXAMINATION: Temperature 97.6 degrees Fahrenheit, heart rate 68 per minute and respiratory rate 18 per minute. Blood pressure 108/58 mmHg now and oxygen saturation 97%. Earlier, his blood pressure has been 82/52 and 84/46. He is usually quite hypotensive. His head is atraumatic. Neck veins are at least moderately distended. Right-sided internal jugular vein Perma-Cath in place. Heart sounds are regular. Lungs with diminished breath sounds in right lower half. Few basilar crepitations on the left side are audible. Extremities have no cyanosis or clubbing. Abdomen is soft and nontender and bowel sounds are normal. Neurologically, he is at his baseline mentation. LABORATORY DATA: Today's laboratories show WBC count 9.0, hemoglobin 10.5 and hematocrit 34.6. Sodium 135, potassium 4.9, CO2 20, BUN 64 and creatinine 6.5. Glucose 158 and calcium 7.6. PROBLEMS: 1. Acute on chronic systolic congestive heart failure. His volume status is slightly decompensated. He is on four liters of oxygen which is a chronic issue. We are going to try to dialyze him today and see how he can tolerate fluid removal. On Monday, we will ultra-filtrated and removed one liter of fluid. 2. End-stage renal disease. The patient remains on dialysis three times a week. He is not ready to stop dialysis and go on Hospice, though his family had requested to consider about hospice. However, the patient himself has declined it so far. He will be dialyzed later this afternoon. 3. Hypotension. The patient has chronic hypotension and remains on midodrine 10 mg three times a day which will be continued. 4. Right pleural effusion. The patient has recurrent right pleural effusion and is going to have a thoracentesis done today. 5. Anemia. At present, his anemia is stable and does not need any urgent intervention. 6. Generalized weakness and deconditioning. He has become very frail and not able to get up by himself or ambulate. Family has discussed about possibility of stopping dialysis and consideration for hospice. However, the patient has declined it.
[2018-10-01] MEDS: ASPIRIN 81 MG ENTERIC TAB PO SCH (20:55)
[2018-10-01] MEDS: ACETAMINOPHEN 500 MG TAB PO PRN (20:55)
[2018-10-01] MEDS: diphenhydrAMINE 12.5MG/5ML ELIXIR UDC PO PRN (21:05)
[2018-10-01 22:00] VITALS: BP 80/53
[2018-10-02] VITALS (8 sets, daily range): BP systolic 78–98; BP diastolic 46–52
[2018-10-02] MEDS: LEVOTHYROXINE 100MCG TABLET (0.1MG) PO SCH (05:38)
[2018-10-02 06:06] LABS: HEMOGLOBIN 9.7 g/dl (13.5-17.5); MEAN CORPUSCULAR HEMOGLOBIN 32.3 pg (27.0-33.0); MEAN CORPUSCULAR HGB CONC 30.3 g/dl (32.0-36.5); MEAN CORPUSCULAR VOLUME 106.7 fl (80.0-96.0); PLATELET COUNT, AUTOMATED 154 10^3/uL (150-450); WHITE BLOOD COUNT 7.4 10^3/uL (4.0-10.0)
[2018-10-02 06:22] LABS: INR 1.38; PROTHROMBIN TIME 17.2 SECONDS (12.1-14.4)
[2018-10-02 06:25] LABS: CALCIUM LEVEL 7.5 MG/DL (8.8-10.2); CREATININE FOR GFR 3.88 MG/DL (0.70-1.30); GLOMERULAR FILTRATION RATE 15.8 (>35)
[2018-10-02] MEDS: MIDODRINE 5 MG TAB PO SCH ×3 (07:42→16:01)
[2018-10-02] MEDS: FEBUXOSTAT 40 MG TABLET (ULORIC) PO SCH (07:42)
[2018-10-02] MEDS: AMIODARONE 200 MG TAB (PACERONE) PO SCH (07:42)
[2018-10-02] MEDS: SENOKOT S TAB PO SCH ×2 (07:43→21:35)
[2018-10-02] MEDS: rOPINIRole 0.25 MG TAB(REQUIP) PO SCH ×2 (07:44→21:35)
[2018-10-02] MEDS: LEVEMIR (INSULIN DETEMIR) 1 UNITS/0.01ML SC SCH (07:44)
[2018-10-02] MEDS: HumaLOG INSULIN (NovoLOG) PER UNIT SC SCH ×3 (07:45→17:21)
--- NOTE | 2018-10-02 11:27 | REP ---
POST-BIOPSY AP AND LATERAL CHEST: 10/02/2018 at 10:47 AM. Comparison: AP portable chest 09/27/2018, two-view chest 08/21/2018. Clinical history: Status post right thoracentesis removing 660 mL of thin reddish fluid from the right pleural space. Findings: Sternotomy wires and aortic valve replacement along with a right jugular dialysis catheter again seen and unchanged. The right pleural effusion on last week's chest x-ray is much improved. I do not see a pneumothorax. The left lung shows sharply defined CP angle on the frontal view with a possible small effusion suggested on the lateral view with minor blunting. Basilar fibrotic changes are seen. The aorta is mildly tortuous, unchanged. Airway intact. Impression: 1. Status post right thoracentesis with much improved right effusion and with no pneumothorax. No other change. Electronically Signed by Cleve Purcell MD 10/02/2018 08:36 P
--- NOTE | 2018-10-02 12:32 | IPNPDOC ---
Subjective Date Seen The patient was seen on 10/02/18. Subjective Chief Complaint/HPI Patient seen and examined at bedside. He is scheduled to undergo a thoracentesis today. Otherwise, the patient's family states that he was restless yesterday evening. He has been prescribed Tylenol PM combination. He has also received ropinirole for his restless leg syndrome. Objective Physical Examination General Exam: Positive: Alert, Cooperative, No Acute Distress ENT Exam: Positive: Atraumatic, Mucous membr. moist/pink Chest Exam: Positive: Diminished Heart Exam: Positive: Rate Normal, Normal S1, Normal S2 Abdomen Exam: Positive: Soft; Negative: Tenderness Extremity Exam: Positive: Other (b/l LE wrapped in bandaging) Psych Exam: Positive: Oriented x 3 Assessment /Plan Plan/VTE VTE Prophylaxis Ordered?: Yes Plan Progressive SOB, Weakness likely 2/2 Right Sided Pleural Effusion Patient has had worsening cough and SOB which is likely attributable to his underlying decompensation of diastolic and systolic congestive heart failure with an ejection fraction of 20%. The patient has been rather difficult to volume optimize as he is chronically hypotensive even while on a maximum dose of midodrine, and also hypoalbuminemic. Consequently, the patient has been a challenge to dialyze and have ultrafiltration done. It appears that the patient has a recurrent right-sided pleural effusion for which he had a thoracentesis done in June and July with an approximate drainage of 500 mL each time. The patient's respiratory status improved thereafter. 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 Huizar's office. 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 Code Status: DNR Dispo--pending clinical improvement, Thoracentesis today. VS, I&O, 24H, Fishbone Vital Signs/I&O Vital Signs Date Time Temp Pulse Resp B/P (MAP) Pulse Ox O2 Delivery O2 Flow Rate FiO2 10/02/18 06:00 98.6 67 18 84/52 (63) 98 4.0 09/28/18 07:46 Nasal Cannula I&O- Last 24 Hours up to 6 AM 10/02/18 06:00 Intake Total 780 ml Output Total 1500 ml Balance -720 ml Laboratory Data 24H LABS Laboratory Tests 2 10/01/18 17:06: Bedside Glucose (Misc Panel) 133H 10/01/18 19:55: Bedside Glucose (Misc Panel) 160H 10/02/18 05:23: Nucleated Red Blood Cells % (auto) 0.0, Prothrombin Time 17.2H, Prothromb Time International Ratio 1.38, Anion Gap 8, Glomerular Filtration Rate 15.8L, Blood Urea Nitrogen 30#H, Creatinine 3.88H, Sodium Level 136, Potassium Level 4.0, Chloride Level 99, Carbon Dioxide Level 29, Calcium Level 7.5L 10/02/18 05:42: Bedside Glucose (Misc Panel) 126H 10/02/18 11:41: Bedside Glucose (Misc Panel) 120H CBC/BMP Laboratory Tests 10/02/18 05:23 Red Blood Count 3.00 L, Mean Corpuscular Volume 106.7 H, Mean Corpuscular Hemog lobin 32.3, Mean Corpuscular Hemoglobin Concent 30.3 L, Red Cell Distribution Width 17.6 H, Calcium Level 7.5 L Microbiology Microbiology 09/27/18 Blood Culture - Preliminary, Resulted No Growth after 72 hours. All specime... 09/28/18 MRSA Screen - Final, Complete 09/27/18 Respiratory Virus Panel (PCR) ([facility]) - Final, Complete LIZBETH HONG MD Oct 02, 2018 12:32
--- NOTE | 2018-10-02 15:16 | IPN ---
DATE: 10/02/2018 Mr. Quezada is seen this morning in radiology department. He is getting his right thoracentesis done and I have seen at the end of thoracentesis and 660 liters of pinkish fluid has been removed from his right chest under ultrasound guidance. The patient has been feeling weak and reports that he did not sleep very well again last night due to discomfort and restless legs. He has chronic dyspnea and hypoxemia. He denies any nausea or vomiting. PHYSICAL EXAMINATION: Temperature 98.6 degrees Fahrenheit, heart rate 68 per minute and respiratory rate 18 per minute. Blood pressure 84/52 mmHg and oxygen saturation 98%. His head is atraumatic. Neck is supple and jugular venous distention (JVD) is mildly elevated. Right-sided internal jugular vein Perma-Cath is in place. Heart sounds are irregular in rhythm. Lungs have diminished breath sounds on the right lower half, but slightly improved compared with yesterday. Abdomen is soft and nontender. Extremities without any cyanosis or clubbing. Neurologically, he is awake and at his baseline mentation. LABORATORY DATA: Today's laboratories show WBC count 7.4, hemoglobin 9.7 and hematocrit 32.0. Platelets 154. Sodium 136, potassium 4.0, BUN 30 and creatinine 3.88. PROBLEMS: 1. End-stage renal disease. The patient was dialyzed yesterday and we were able to remove about 1500 mL of fluid. The patient's daughter feels that he did get some panic attack towards the end of dialysis. However, nursing staff reported that it was related to a slightly low blood pressure but generally he did well. In any event, we plan to dialyze him again tomorrow which is his regular day. 2. Chronic systolic congestive heart failure. His volume status is reasonable at present and we will continue to remove about 1 to 1.5 liters of fluid with each dialysis as tolerated. 3. Recurrent right pleural effusion. The patient had a thoracentesis done just a few minutes ago and about 660 mL of fluid was removed. It remains to be seen how he feels over the next few days. 4. Chronic hypotension. The patient has chronic hypotension which is unchanged and he remains on midodrine 10 mg three times a day which will be continued. 5. Anemia. So far, his anemia has been relatively stable and there is no indication for a transfusion. DISPOSITION: The patient has been very weak and family has been requesting the possibility for hospice care. However, so far, the patient has been declining it. We will continue to dialyze him as long as he can tolerate and once dialysis is not tolerated then the patient will be advised once again about considering hospice care. At this point, he has clearly stated that he would like to continue with dialysis.
[2018-10-02] MEDS: **VANCO AFTER HD** MISC XX SCH (15:56)
[2018-10-02] MEDS ORDERED: ONDANSETRON 4MG/2ML VIAL (J2405) IV PRN (18:00)
--- NOTE | 2018-10-02 18:26 | REP ---
ULTRASOUND-GUIDED RIGHT THORACENTESIS The procedure was performed under the direct supervision of Dr. Purcell The risks and benefits of the procedure were explained to the patient and informed consent was obtained by the health care fracture. The right pleural effusion was localized using ultrasound guidance. The skin was prepped and draped in a sterile fashion. 1% lidocaine was used as a local anesthetic. An 8-Afghan multi side-hole catheter was inserted using trocar technique. 660 ml of low viscosity red colored fluid was withdrawn and discarded. The patient tolerated the procedure well and there were no immediate complications. After the appropriate amount of monitored convalescence the patient was discharged from the department. Reviewed by YULISSA Heaton 10/02/2018 01:26 P Electronically Signed by Cleve Purcell MD 10/02/2018 06:18 P
[2018-10-02] MEDS: ASPIRIN 81 MG ENTERIC TAB PO SCH (21:35)
[2018-10-03 05:58] LABS: HEMATOCRIT 33.7 % (42.0-52.0); HEMOGLOBIN 10.2 g/dl (13.5-17.5); MEAN CORPUSCULAR HEMOGLOBIN 32.3 pg (27.0-33.0); MEAN CORPUSCULAR HGB CONC 30.3 g/dl (32.0-36.5); MEAN CORPUSCULAR VOLUME 106.6 fl (80.0-96.0); PLATELET COUNT, AUTOMATED 180 10^3/uL (150-450); RED BLOOD COUNT 3.16 10^6/uL (4.30-6.10); WHITE BLOOD COUNT 8.2 10^3/uL (4.0-10.0)
[2018-10-03 06:00] VITALS: BP 84/53
[2018-10-03] MEDS: MIDODRINE 5 MG TAB PO SCH ×3 (06:12→17:38)
[2018-10-03] MEDS: LEVOTHYROXINE 100MCG TABLET (0.1MG) PO SCH (06:12)
[2018-10-03] MEDS: FEBUXOSTAT 40 MG TABLET (ULORIC) PO SCH (06:13)
[2018-10-03] MEDS: SENOKOT S TAB PO SCH ×2 (06:13→21:51)
[2018-10-03] MEDS: AMIODARONE 200 MG TAB (PACERONE) PO SCH (06:13)
[2018-10-03 06:20] LABS: INR 1.21; PROTHROMBIN TIME 15.5 SECONDS (12.1-14.4)
[2018-10-03 06:27] LABS: CALCIUM LEVEL 7.7 MG/DL (8.8-10.2); CREATININE FOR GFR 5.23 MG/DL (0.70-1.30); GLOMERULAR FILTRATION RATE 11.2 (>35); POTASSIUM SERUM 4.2 MEQ/L (3.5-5.1)
[2018-10-03] MEDS: HumaLOG INSULIN (NovoLOG) PER UNIT SC SCH ×3 (08:05→17:38)
[2018-10-03] MEDS: LEVEMIR (INSULIN DETEMIR) 1 UNITS/0.01ML SC SCH (08:05)
--- NOTE | 2018-10-03 14:39 | IPNPDOC ---
Subjective Date Seen The patient was seen on 10/03/18. Subjective Chief Complaint/HPI Patient is seen and examined at the bedside. He was apparently quite agitated yesterday evening from effect. However, this morning the patient states that his respiratory status is better after having a right-sided thoracentesis. Objective Physical Examination General Exam: Positive: Alert, Cooperative, No Acute Distress ENT Exam: Positive: Atraumatic, Mucous membr. moist/pink Chest Exam: Positive: Diminished Heart Exam: Positive: Rate Normal, Normal S1, Normal S2 Abdomen Exam: Positive: Soft; Negative: Tenderness Extremity Exam: Positive: Other (b/l LE wrapped in bandaging) Psych Exam: Positive: Oriented x 3 Assessment /Plan Plan/VTE VTE Prophylaxis Ordered?: Yes Plan Progressive SOB, Weakness likely 2/2 Right Sided Pleural Effusion Patient has had worsening cough and SOB which is likely attributable to his underlying decompensation of diastolic and systolic congestive heart failure with an ejection fraction of 20%. The patient has been rather difficult to volume optimize as he is chronically hypotensive even while on a maximum dose of midodrine, and also hypoalbuminemic. Consequently, the patient has been a challenge to dialyze and have ultrafiltration done. It appears that the patient has a recurrent right-sided pleural effusion for which he had a thoracentesis done in June and July with an approximate drainage of 500 mL each time. The patient's respiratory status improved thereafter. 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 Huizar's office. History of Porcine aortic valve On Coumadin at baseline--currently being held 2/2 need for thoracentesis Risks, benefits, and alternatives to holding AC discussed with patient/family Dyslipidemia Cont Statin Gout Cont Uloric Delirium, Agitation We will order Melatonin supplementation for the patient His options are quite limited given his advanced age, and prolonged qt interval on EKG. We will cont to monitor the patient DVT prophylaxis On Coumadin Poor Detention Prognosis--discussed at length with the patient and family. Code Status: DNR Dispo--pending clinical improvement. VS, I&O, 24H, Fishbone Vital Signs/I&O Vital Signs Date Time Temp Pulse Resp B/P (MAP) Pulse Ox O2 Delivery O2 Flow Rate FiO2 10/03/18 09:00 4.0 10/03/18 06:00 97.9 63 18 84/53 (63) 91 09/28/18 07:46 Nasal Cannula I&O- Last 24 Hours up to 6 AM 10/03/18 06:00 Intake Total 480 ml Output Total 960 ml Balance -480 ml Laboratory Data 24H LABS Laboratory Tests 2 10/02/18 16:49: Bedside Glucose (Misc Panel) 101 10/02/18 19:46: Bedside Glucose (Misc Panel) 148H 10/02/18 22:42: Bedside Glucose (Misc Panel) 173H 10/03/18 05:15: Bedside Glucose (Misc Panel) 169H 10/03/18 05:22: Nucleated Red Blood Cells % (auto) 0.0, Prothrombin Time 15.5H, Prothromb Time International Ratio 1.21, Anion Gap 11, Glomerular Filtration Rate 11.2L, Blood Urea Nitrogen 44H, Creatinine 5.23H, Sodium Level 137, Potassium Level 4.2, Chloride Level 100, Carbon Dioxide Level 26, Calcium Level 7.7L 10/03/18 11:12: Bedside Glucose (Misc Panel) 102 CBC/BMP Laboratory Tests 10/03/18 05:22 Red Blood Count 3.16 L, Mean Corpuscular Volume 106.6 H, Mean Corpuscular Hemoglobin 32.3, Mean Corpuscular Hemoglobin Concent 30.3 L, Red Cell Distribution Width 17.5 H, Calcium Level 7.7 L Microbiology Microbiology 09/27/18 Blood Culture - Final, Complete NO GROWTH AFTER 5 DAYS 09/28/18 MRSA Screen - Final, Complete 09/27/18 Respiratory Virus Panel (PCR) ([facility]) - Final, Complete LIZBETH HONG MD Oct 03, 2018 14:39
--- NOTE | 2018-10-03 15:06 | IPN ---
DATE OF VISIT: 10/03/2018 Mr. Quezada is seen this morning on his bedside. He underwent right-sided thoracentesis yesterday and 660 mL fluid was removed. He is feeling better. However, family reports that later in the evening he gets very confused and tremulous. He has chronic hypoxemia and has been on 4 liters oxygen. Patient denies any nausea or vomiting and reports a good appetite. On physical exam, temperature 97.9 degrees Fahrenheit, heart rate 63 per minute and respiratory rate 18 per minute. Blood pressure 84/53 mmHg and oxygen saturation 91% on 4 liters oxygen. Head is atraumatic. There is no oral thrush or ulcers. Right-sided internal jugular vein Perma-Cath is in place. Heart sounds are regular and lungs with diminished breath sounds and bibasilar rales. Abdomen soft and nontender, and bowel sounds are normal. Extremities have no cyanosis or clubbing. Neurologically, he is at his baseline mentation and there is no focal deficit. Today's labs show WBC count 8.2, hemoglobin 10.2 and hematocrit 33.7. Platelets 180. Sodium 137, potassium 4.2, CO2 26, BUN 44 and creatinine 5.23. Glucose 169 and calcium 7.7. PROBLEMS: 1. End-stage renal disease. Patient is due for dialysis today and we are going to try to dialyze him later this afternoon. 2. Congestive heart failure, chronic issue with severe systolic dysfunction. We are going to try to remove 1.5 liters of fluid as tolerated. 3. Chronic hypotension, stable at this level with blood pressure in 80s most of the time. He is on midodrine 10 mg three times a day, which will be continued. 4. Anemia. His anemia is stable and we will continue to manage with Aranesp once a week during dialysis. 5. Restless leg syndrome. Patient is now on Requip 0.25 mg at bedtime. We had started it three times a day. However, he did not tolerate very well. Patient's family feels that in the evening he gets very anxious and tremulous. We can try a dose of Xanax 0.25 mg in the evening and see how he does. I have told the family that it is likely that he might get more hallucinations with it or he might feel better. We will see how he responds.
[2018-10-03] MEDS ORDERED: WARFARIN SOD 1 MG TAB PO ONE (17:00)
[2018-10-03] MEDS ORDERED: WARFARIN SOD 2.5 MG TAB PO ONE (17:00)
[2018-10-03 17:33] VITALS: BP 88/44
[2018-10-03] MEDS ORDERED: ALPRAZolam 0.25 MG TAB PO ONE (20:00)
[2018-10-03] MEDS ORDERED: RAMELTEON 8 MG TAB (ROZEREM) PO SCH (21:00)
[2018-10-03] MEDS: rOPINIRole 0.25 MG TAB(REQUIP) PO SCH (21:51)
[2018-10-03] MEDS: ASPIRIN 81 MG ENTERIC TAB PO SCH (21:51)
[2018-10-03 22:00] VITALS: BP 100/59
[2018-10-04 05:41] LABS: HEMATOCRIT 34.1 % (42.0-52.0); HEMOGLOBIN 10.2 g/dl (13.5-17.5); MEAN CORPUSCULAR HEMOGLOBIN 32.8 pg (27.0-33.0); MEAN CORPUSCULAR HGB CONC 29.9 g/dl (32.0-36.5); MEAN CORPUSCULAR VOLUME 109.6 fl (80.0-96.0); PLATELET COUNT, AUTOMATED 145 10^3/uL (150-450); RED BLOOD COUNT 3.11 10^6/uL (4.30-6.10); WHITE BLOOD COUNT 7.9 10^3/uL (4.0-10.0)
[2018-10-04 05:49] LABS: INR 1.12; PROTHROMBIN TIME 14.6 SECONDS (12.1-14.4)
[2018-10-04] MEDS: LEVOTHYROXINE 100MCG TABLET (0.1MG) PO SCH (05:53)
[2018-10-04 06:00] VITALS: BP 102/47
[2018-10-04 06:07] LABS: CREATININE FOR GFR 3.57 MG/DL (0.70-1.30); GLOMERULAR FILTRATION RATE 17.4 (>35); POTASSIUM SERUM 4.3 MEQ/L (3.5-5.1)
[2018-10-04] MEDS: FEBUXOSTAT 40 MG TABLET (ULORIC) PO SCH (07:51)
[2018-10-04] MEDS: MIDODRINE 5 MG TAB PO SCH ×3 (07:51→17:20)
[2018-10-04] MEDS: SENOKOT S TAB PO SCH ×2 (07:52→21:49)
[2018-10-04] MEDS: LEVEMIR (INSULIN DETEMIR) 1 UNITS/0.01ML SC SCH (07:52)
[2018-10-04] MEDS: HumaLOG INSULIN (NovoLOG) PER UNIT SC SCH ×3 (07:52→17:21)
[2018-10-04] MEDS: AMIODARONE 200 MG TAB (PACERONE) PO SCH (07:53)
[2018-10-04] MEDS ORDERED: DARBEPOETIN 100 MCG/0.5 ML *DIALYSIS* SYRINGE (J0882) IV SCH (11:45)
--- NOTE | 2018-10-04 12:14 | IPN ---
DATE OF VISIT: 09/28/2018 Mr. Quezada is seen this morning on his bedside. His family is present in the room. Patient remains weak and unable to do his activities of daily living (ADL). He needs 24-hour care and family is trying to make arrangements for him to go home with 24-hour care. Hospital bed has already been delivered. In the meantime, patient underwent hemodialysis yesterday and we were able to remove 1.5 liters of fluid, which he tolerated well. His blood pressure remained stable. He is feeling tired today as he was up at night watching TV but denies any problems with his restless legs. He was given a dose of Xanax 0.25 mg last evening, which probably did not help much to get him follow asleep. On physical exam, temperature 97.8 degrees Fahrenheit, heart rate 65 per minute and respiratory rate 20 per minute. Blood pressure 102/47 mmHg and oxygen saturation 93% on 4 liters oxygen. His physical exam is essentially unchanged. Head is atraumatic and neck is supple. Jugular venous distention is mildly elevated. Internal jugular vein catheter in right upper chest is present. Heart sounds are irregular in rhythm. Lungs with slightly diminished breath sounds. Abdomen soft and nontender, and bowel sounds normal. Extremities without any cyanosis or clubbing. Neurologically, he is at his baseline mentation. Today's labs show WBC count 7.9, hemoglobin 10.2 and hematocrit 34. Platelets 145. Sodium 137, potassium 4.3, CO2 30, BUN 26 and creatinine 3.57. Glucose 146 and calcium 8.0. PROBLEMS: 1. End-stage renal disease. Patient was dialyzed yesterday and we will plan on dialyzing him again tomorrow, which is his regular day. 2. Chronic systolic congestive heart failure. Volume status is reasonable at present and we were able to remove 1.5 liters of fluid yesterday. We will keep trying to remove fluid as much as he can tolerate. 3. Hypotension. This is a chronic issue and patient has been on midodrine 10 mg three times a day, which should be continued. 4. Anemia. His anemia has been stable and he remains on Aranesp once a week. No changes are being made today. 5. Generalized weakness and deconditioning. Patient remains very weak and not moving much. He is not a candidate for physical therapy due to chronic issues and failure to thrive. Family is trying to make arrangements for 24-hour care at home.
--- NOTE | 2018-10-04 13:16 | IPNPDOC ---
Subjective Date Seen The patient was seen on 10/04/18. Subjective Chief Complaint/HPI SOB, weakness, hypotension Events since last encounter No new complaints this am . Has good appetite, Continues to be very weak requiring 2 person assist however has been out of bed to chair. Has been refusing PT. No fever or chills. No chest pain or SOB , no abdominal pain , nausea or vomiting. Objective Physical Examination General Exam: Positive: Alert, Cooperative, No Acute Distress ENT Exam: Positive: Atraumatic, Mucous membr. moist/pink Chest Exam: Positive: Diminished Heart Exam: Positive: Rate Normal, Normal S1, Normal S2 Abdomen Exam: Positive: Soft; Negative: Tenderness Extremity Exam: Positive: Other (b/l LE wrapped in bandaging) Psych Exam: Positive: Oriented x 3 Assessment /Plan Assessment Patient is an 87-year-old male with the past medical history of end-stage renal disease on hemodialysis on Monday, Monday, Monday maintenance schedule, history of systolic congestive heart failure with ejection fraction 20%, atrial fibrillation, chronic hypotension, type 2 diabetes mellitus , anemia of chronic renal failure, secondary hyperparathyroidism of renal origin, coronary artery disease, and other comorbid conditions mentioned below. Patient has been deteriorating over the past several months. He presented to the emergency room with complaint of generalized weakness, missed his outpatient hemodialysis today. His daughter and [id number] are at the bedside and supplement the history. Reports that his blood pressure at home has been lower than his usual readings, which are systolic around the 80s. Patient has also had shortness of breath. He has been mostly bed bound and is requiring [id number] care. He has recently had recurrent right-sided pleural effusion, for which he has had thoracentesis in the past. Patient complains of a chronic cough. He denies any fevers or chills. In the emergency room, patient received 1 liter of intravenous (IV) fluids for hypotension. Chest x-ray showed a right pleural effusion. His blood pressures over his stay thus far has been systolic around the 80s on his usual midodrine. Due to patients SOB, hypotension and weakness hospitalist service was consulted and patient was admitted Progressive SOB, Weakness 2/2 Right Sided Pleural Effusion, decompensated Systolic and diastolic heart failure with an ejection fraction of 20%. The patient has been rather difficult to volume optimize as he is chronically hypotensive even while on a maximum dose of midodrine, and also hypoalbuminemic. Consequently, the patient has been a challenge to dialyze and have ultrafiltration done. Recurrent right-sided pleural effusion Due to CHF and inability to optimally volume regulate by HD due to low BPs. had a thoracentesis done in June and July with an approximate drainage of 500 mL each time. The patient's respiratory status improved thereafter. s/p thoracentesis on 10/02 with removal of 660 cc's--reports improvement of respiratory status PT on board for functional optimization We will cont to monitor the patient at this time ESRD on HD Nephrology on board for volume optimization as tolerated Diastolic and Systolic CHF with an EF of 20% Challenges of volume optimization outlined above Nephro on board for dialysis Hx of Atrial Fibrillation Cont Amiodarone, Coumadin Chronic Severe Hypotension Patient on Midodrine Hypothyroidism Continue levothyroxine Diabetes Mellitus Type 2 Levemir and Sliding scale coverage Sacral Ulcer Follows with Dr. Huizar's office. History of AVR with Porcine aortic valve Dyslipidemia Cont Statin Gout Cont Uloric Delirium, Agitation We will order Melatonin supplementation for the patient His options are quite limited given his advanced age, and prolonged qt interval on EKG. We will cont to monitor the patient DVT prophylaxis On Coumadin Poor [employer] Prognosis--discussed at length with the patient and family. Code Status: DNR Dispo: home with 24x 7 care vs NH : Family looking into hiring caregivers. Plan/VTE VTE Prophylaxis Ordered?: Yes VS, I&O, 24H, Fishbone Vital Signs/I&O Vital Signs Date Time Temp Pulse Resp B/P (MAP) Pulse Ox O2 Delivery O2 Flow Rate FiO2 10/04/18 06:00 97.8 65 20 102/47 (65) 93 4.0 09/28/18 07:46 Nasal Cannula I&O- Last 24 Hours up to 6 AM 10/04/18 05:59 Intake Total 930 ml Output Total 1500 ml Balance -570 ml Laboratory Data 24H LABS Laboratory Tests 2 10/03/18 17:14: Bedside Glucose (Misc Panel) 161H 10/03/18 20:39: Bedside Glucose (Misc Panel) 174H 10/04/18 05:25: Nucleated Red Blood Cells % (auto) 0.0, Prothrombin Time 14.6H, Prothromb Time International Ratio 1.12, Anion Gap 6L, Glomerular Filtration Rate 17.4L, Blood Urea Nitrogen 26H, Creatinine 3.57H, Sodium Level 137, Potassium Level 4.3, Chloride Level 100, Carbon Dioxide Level 31, Calcium Level 8.0L 10/04/18 11:38: Bedside Glucose (Misc Panel) 176H CBC/BMP Laboratory Tests 10/04/18 05:25 Red Blood Count 3.11 L, Mean Corpuscular Volume 109.6 H, Mean Corpuscular Hemog lobin 32.8, Mean Corpuscular Hemoglobin Concent 29.9 L, Red Cell Distribution Width 17.9 H, Calcium Level 8.0 L Microbiology Microbiology 09/27/18 Blood Culture - Final, Complete NO GROWTH AFTER 5 DAYS 09/28/18 MRSA Screen - Final, Complete 09/27/18 Respiratory Virus Panel (PCR) ([facility]) - Final, Complete CHARISMA UPTON MD Oct 04, 2018 13:16
[2018-10-04 14:00] VITALS: BP 82/38
[2018-10-04] MEDS: WARFARIN SOD 3 MG TAB PO SCH (17:21)
[2018-10-04] MEDS: ASPIRIN 81 MG ENTERIC TAB PO SCH (21:49)
[2018-10-04] MEDS: rOPINIRole 0.25 MG TAB(REQUIP) PO SCH (21:49)
[2018-10-04 22:00] VITALS: BP 137/90
[2018-10-05 06:00] VITALS: BP 84/43
[2018-10-05] MEDS: SENOKOT S TAB PO SCH ×2 (06:06→20:17)
[2018-10-05] MEDS: AMIODARONE 200 MG TAB (PACERONE) PO SCH (06:07)
[2018-10-05] MEDS: FEBUXOSTAT 40 MG TABLET (ULORIC) PO SCH (06:07)
[2018-10-05] MEDS: LEVOTHYROXINE 100MCG TABLET (0.1MG) PO SCH (06:07)
[2018-10-05] MEDS: MIDODRINE 5 MG TAB PO SCH ×3 (06:08→17:01)
[2018-10-05 06:21] LABS: INR 1.33; PROTHROMBIN TIME 16.7 SECONDS (12.1-14.4)
[2018-10-05] MEDS: HumaLOG INSULIN (NovoLOG) PER UNIT SC SCH ×3 (08:02→17:01)
[2018-10-05] MEDS: LEVEMIR (INSULIN DETEMIR) 1 UNITS/0.01ML SC SCH (08:02)
[2018-10-05] MEDS ORDERED: HEPARIN 1,000 UNITS/ML 10ML VIAL (FOR RADIOLOGY& DIALYSIS ONLY) IV ONE (10:30)
[2018-10-05] MEDS ORDERED: HEPARIN 1,000 UNITS/ML 10ML VIAL (FOR RADIOLOGY& DIALYSIS ONLY) XX ONE (10:30)
--- NOTE | 2018-10-05 11:25 | IPN ---
DATE: 10/05/2018 Mr. Quezada is seen this morning on his bedside. He is sitting in the chair at present and working with the physical therapist. He still did not sleep very well at night and has various problems. He denies any nausea, vomiting, fever or chills. He has chronic hypoxemia and remains on oxygen. On physical examination, temperature 98.3 degrees Fahrenheit, heart rate 64 per minute and respiratory rate 18 per minute. Blood pressure 84/43 mmHg and oxygen saturation 95% on 4 liters oxygen. His head is atraumatic. Perma-Cath is present in right internal jugular vein. There is no oral thrush or ulcers. Heart sounds are irregular in rhythm and lungs with diminished breath sounds on right side. Abdomen soft and nontender. Extremities without any cyanosis or clubbing. Neurologically he is awake, alert and at his baseline mentation. PROBLEMS: 1. Systolic congestive heart failure. The patient has been managed with dialysis. Last time, we removed 1.5 liters of fluid without any significant problem. Today, we are going to try to remove another 1 liter and see how he does. 2. End-stage renal disease. The patient has been dialysis dependent and he will be dialyzed this afternoon. 3. Anemia. No significant change and stable anemia at present. We will continue with Aranesp once a week during dialysis. 4. Generalized weakness and deconditioning. The patient is doing physical therapy. He does not have much potential for rehab. We are hoping that he can go home and family is trying to set up 24-hour care at home. 5. Hypotension. This is a chronic issue and the patient remains on midodrine 10 mg three times a day.
[2018-10-05 14:00] VITALS: BP 96/46
[2018-10-05] MEDS: WARFARIN SOD 3 MG TAB PO SCH (17:01)
[2018-10-05] MEDS: rOPINIRole 0.25 MG TAB(REQUIP) PO SCH (20:17)
[2018-10-05] MEDS: ASPIRIN 81 MG ENTERIC TAB PO SCH (20:17)
[2018-10-06] MEDS: ACETAMINOPHEN TAB 650MG DOSE (2X325MG) PO PRN ×2 (01:22→20:39)
[2018-10-06 06:00] VITALS: BP 74/40
[2018-10-06] MEDS: LEVOTHYROXINE 100MCG TABLET (0.1MG) PO SCH (06:02)
--- NOTE | 2018-10-06 06:11 | REPVR ---
EXAM: CT Head Without Contrast EXAM DATE/TIME: 10/06/2018 5:20 AM CLINICAL HISTORY: 87 years old, male; Injury or trauma; Fall; Additional info: Patient fell on floor TECHNIQUE: Axial computed tomography images of the head/brain without contrast. All CT scans at this facility use at least one of these dose optimization techniques: automated exposure control; mA and/or kV adjustment per patient size (includes targeted exams where dose is matched to clinical indication); or iterative reconstruction. COMPARISON: No relevant prior studies available. FINDINGS: Brain: There is patchy white matter hypoattenuation without mass effect. Ventricles: Age related cerebral atrophy with secondary ventricular dilatation. Bones/joints: Unremarkable. No acute fracture. Sinuses: Visualized sinuses are unremarkable. No acute sinusitis. Mastoid air cells: Visualized mastoid air cells are unremarkable. No mastoid effusion. Soft tissues: Unremarkable. Vasculature: There is severe calcifications of the carotid arteries in their cavernous and supraclinoid portions. There is severe calcifications of the vertebral artery. IMPRESSION: 1. No CT evidence of intracranial hemorrhage, mass effect or midline shift. 2. Age related cerebral atrophy with presumably chronic microangiopathic changes. No old studies available for comparison. Electronically signed by: Young Wang On 10/06/2018 06:11:24 AM
[2018-10-06 06:52] LABS: INR 1.3; PROTHROMBIN TIME 16.4 SECONDS (12.1-14.4)
[2018-10-06] MEDS: LEVEMIR (INSULIN DETEMIR) 1 UNITS/0.01ML SC SCH (09:44)
[2018-10-06] MEDS: FEBUXOSTAT 40 MG TABLET (ULORIC) PO SCH (09:45)
[2018-10-06] MEDS: AMIODARONE 200 MG TAB (PACERONE) PO SCH (09:45)
[2018-10-06] MEDS: SENOKOT S TAB PO SCH ×2 (09:45→20:38)
[2018-10-06] MEDS: MIDODRINE 5 MG TAB PO SCH ×3 (09:45→16:18)
[2018-10-06] MEDS: HumaLOG INSULIN (NovoLOG) PER UNIT SC SCH ×3 (09:45→17:19)
[2018-10-06] MEDS: WARFARIN SOD 3 MG TAB PO SCH (16:22)
[2018-10-06] MEDS ORDERED: PILL CRUSHER/CUTTER 1 EACH XX PRN (19:30)
[2018-10-06] MEDS: diphenhydrAMINE 12.5MG/5ML ELIXIR UDC PO PRN (20:38)
[2018-10-06] MEDS: ASPIRIN 81 MG ENTERIC TAB PO SCH (20:38)
[2018-10-06] MEDS: rOPINIRole 0.25 MG TAB(REQUIP) PO SCH (20:38)
[2018-10-06 22:00] VITALS: BP 113/51
[2018-10-07] MEDS: LEVOTHYROXINE 100MCG TABLET (0.1MG) PO SCH (05:56)
[2018-10-07 06:00] VITALS: BP 126/60
[2018-10-07] MEDS: SENOKOT S TAB PO SCH ×2 (09:30→21:23)
[2018-10-07] MEDS: AMIODARONE 200 MG TAB (PACERONE) PO SCH (09:30)
[2018-10-07] MEDS: FEBUXOSTAT 40 MG TABLET (ULORIC) PO SCH (09:30)
[2018-10-07] MEDS: MIDODRINE 5 MG TAB PO SCH ×3 (09:30→17:18)
[2018-10-07] MEDS: HumaLOG INSULIN (NovoLOG) PER UNIT SC SCH ×3 (09:31→17:17)
[2018-10-07] MEDS: LEVEMIR (INSULIN DETEMIR) 1 UNITS/0.01ML SC SCH (09:31)
--- NOTE | 2018-10-07 11:48 | IPN ---
DATE OF SERVICE: 10/06/2018 SUBJECTIVE: The patient was seen and examined at the bedside today morning. The patient's two sons were also present at the bedside. He is sleepy and drowsy. Answers few questions. He was dialyzed yesterday. The patient has soft blood pressures. OBJECTIVE: Vital signs: Temperature is 97.8 degrees Fahrenheit, blood pressure is 74/40, pulse is 95, respiratory rate of 22, saturating 97% on nasal cannula at 2 liters. Intake and output: Urine output is not recorded. Ultrafiltration with hemostasis which was done yesterday is not recorded. Weight in the bed scale is not available. PHYSICAL EXAMINATION: General: The patient is awake, alert, oriented times two, lying in bed, answers few questions, drowsy, and sleepy. Head and neck examination: Extraocular muscles intact. Pupils equally round and reactive to light. Neck is supple. Mildly elevated jugular venous distention (JVD). Cardiovascular: S1, S2, irregular rate. 1+ edema of the bilateral lower extremities. Respiratory: Decreased breath sounds at the bases. No active rales or rhonchi. Abdomen: Is soft, positive bowel sounds, positive abdominal wall edema. Genitourinary: The bladder is nonpalpable. Musculoskeletal: No clubbing or cyanosis. Pulses are 2+. Central nervous system (CUSTOMS OFFICER): The patient is lethargic. Otherwise, follows commands and moves extremities. LABORATORY REVIEW: CBC showed a WBC of 7.9 and hemoglobin 10.2, and this is from 10/04/2018. BMP from today is not available. CURRENT INPATIENT MEDICATIONS: The patient's medications were all reviewed by me. There is no change in the medications today as compared with yesterday. ASSESSMENT AND PLAN: 1. End-stage renal disease, on hemodialysis. He is being dialyzed according to Monday, Monday, Monday schedule. Next hemodialysis will be on 10/08/2018. 2. Chronic systolic congestive heart failure. The patient has severe heart failure with chronically low blood pressures and difficult to remove fluid. Fluid status is being optimized with dialysis as tolerated by his blood pressure. 3. Hypotension. It is secondary to severe heart failure. He is currently on midodrine 10 mg by mouth three times a day. 4. Anemia in end-stage renal disease. Latest hemoglobin was 10.2, which is optimal. He is currently getting Aranesp 100 mcg intravenous (IV) with hemodialysis. 5. Weakness and inability to walk. The patient is getting some help with physical therapy. The family is trying to get someone for help for 24 hours. DISPOSITION: The patient overall has a very poor prognosis. Most of the family members are aware of the patient's poor prognosis. The family is leaning more towards palliative care and hospice. However, the patient is adamantly refusing any palliative care, and he wants to continue the hemodialysis at this point.
[2018-10-07] MEDS: WARFARIN SOD 3 MG TAB PO SCH (17:18)
--- NOTE | 2018-10-07 17:37 | IPN ---
DATE: 10/07/2018 SUBJECTIVE: Patient was seen and examined at the bedside today morning. Patient is afebile, hemodynamically stable. He is slightly more awake today as compared with yesterday. Family reports that he finished most of his breakfast today morning. OBJECTIVE: VITAL SIGNS: Temperature 97.9 degrees Fahrenheit, blood pressure 126/60, pulse 71, respiratory rate 20, saturating 100% on nasal cannula at 4 liters. Intake and output: There is no urine output recorded. Weight in the bed scale is not available. PHYSICAL EXAMINATION: GENERAL: Patient is awake, alert, oriented times two, laying in bed, no apparent distress. HEAD and NECK EXAM: Extraocular muscles intact. Pupils equally round and reactive to light. He is wearing nasal cannula. Mucous membranes are moist. Neck is supple, there is mildly elevated jugular venous distention (JVD). CARDIOVASCULAR: S1, S2, regular heart rate. 1+ edema of the bilateral lower extremities. RESPIRATORY: Chest is clear to auscultation bilaterally, mildly decreased breath sounds at the bases. ABDOMEN: Soft, positive bowel sounds. No organomegaly. Abdominal wall edema was noted. MUSCULOSKELETAL: No clubbing or cyanosis. Pulses are 2+. CENTRAL NERVOUS SYSTEM (CASSANDRA ARCHITECT): Patient is oriented times two, he follows commands. LABORATORY REVIEW: CBC and BMP is from 10/04/2018, there is no latest lab available. IMAGING: Patient had a CT scan of the head done yesterday which showed no CT evidence of intracranial hemorrhage, mass effect, or midline shift. CURRENT INPATIENT MEDICATIONS: Patient's medications were all reviewed by me. There is no change in the medications today as compared with yesterday. ASSESSMENT AND PLAN: 1. End-stage renal disease on hemodialysis. Patient is getting Monday, Monday, Monday dialysis. Next hemodialysis session will be tomorrow morning. 2. Chronic systolic congestive heart failure. Patient has severe heart failure with low blood pressure, difficult to remove fluid, however he is tolerating the hemodialysis. As long as he continues to tolerate, I will do his hemodialysis. Ultrafiltration goal will be at least 2 liters as tolerated by blood pressure. 3. Hypotension. Continue current dose of midodrine 10 mg by mouth three times a day. 4. Anemia in end-stage renal disease. Continue current dose of Aranesp 100 mcg with hemodialysis. 5. Weakness and inability to walk. Patient needs physical therapy. Family is planning to get 24-hour care at home before taking the patient home. 6. Disposition. Patient overall has poor prognosis. He is DO NOT RESUSCITATE, but he wants to continue aggressive care including hemodialysis.
[2018-10-07] MEDS: ASPIRIN 81 MG ENTERIC TAB PO SCH (21:23)
[2018-10-07] MEDS: diphenhydrAMINE 12.5MG/5ML ELIXIR UDC PO PRN (21:23)
[2018-10-07] MEDS: rOPINIRole 0.25 MG TAB(REQUIP) PO SCH (21:23)
[2018-10-07] MEDS: ACETAMINOPHEN 500 MG TAB PO PRN (21:24)
[2018-10-08] MEDS: MIDODRINE 5 MG TAB PO SCH ×3 (05:38→16:57)
[2018-10-08] MEDS: FEBUXOSTAT 40 MG TABLET (ULORIC) PO SCH (05:39)
[2018-10-08] MEDS: LEVOTHYROXINE 100MCG TABLET (0.1MG) PO SCH (05:39)
[2018-10-08] MEDS: AMIODARONE 200 MG TAB (PACERONE) PO SCH (05:39)
[2018-10-08] MEDS: SENOKOT S TAB PO SCH ×2 (05:39→21:00)
[2018-10-08 06:00] VITALS: BP 100/50
[2018-10-08] MEDS: LEVEMIR (INSULIN DETEMIR) 1 UNITS/0.01ML SC SCH (08:40)
[2018-10-08] MEDS: HumaLOG INSULIN (NovoLOG) PER UNIT SC SCH ×3 (08:40→16:59)
[2018-10-08 09:33] LABS: BASO % 0.6 % (0.0-1.0); EOS # 0.1 10^3/uL (0.0-0.50); EOS % 2.2 % (0.0-3.0); HEMATOCRIT 34.8 % (42.0-52.0); HEMOGLOBIN 10.6 g/dl (13.5-17.5); LYMPH # 1.1 10^3/uL (1.5-4.5); LYMPH % 18.1 % (24.0-44.0); MEAN CORPUSCULAR HEMOGLOBIN 32.9 pg (27.0-33.0); MEAN CORPUSCULAR HGB CONC 30.5 g/dl (32.0-36.5); MEAN CORPUSCULAR VOLUME 108.1 fl (80.0-96.0); MONO # 0.7 10^3/uL (0.0-0.8); MONO % 11.7 % (0.0-5.0); NEUTROPHILS # 4.2 10^3/uL (1.8-7.7); NEUTROPHILS % 66.6 % (36.0-66.0); PLATELET COUNT, AUTOMATED 171 10^3/uL (150-450); RED BLOOD COUNT 3.22 10^6/uL (4.30-6.10); WHITE BLOOD COUNT 6.3 10^3/uL (4.0-10.0)
[2018-10-08 09:56] LABS: ALBUMIN 2.1 GM/DL (3.2-5.2); CALCIUM LEVEL 8.5 MG/DL (8.8-10.2); CREATININE FOR GFR 5.7 MG/DL (0.70-1.30); GLOMERULAR FILTRATION RATE 10.1 (>35); PHOSPHORUS LEVEL 4.9 MG/DL (2.5-4.9); POTASSIUM SERUM 5.2 MEQ/L (3.5-5.1)
[2018-10-08] MEDS ORDERED: HEPARIN 1,000 UNITS/ML 10ML VIAL (FOR RADIOLOGY& DIALYSIS ONLY) IV ONE (11:30)
[2018-10-08] MEDS ORDERED: HEPARIN 1,000 UNITS/ML 10ML VIAL (FOR RADIOLOGY& DIALYSIS ONLY) XX ONE (11:30)
--- NOTE | 2018-10-08 12:43 | IPN ---
DATE OF SERVICE: 10/08/2018 SUBJECTIVE: The patient was seen and examined at the bedside today morning. He was actually sitting in the sofa. His blood pressures are stable. He denies any fevers or chills. He does report mild amount of shortness of breath. OBJECTIVE: VITAL SIGNS: Temperature 97.2 degrees Fahrenheit, blood pressure 100/50, pulse is 67, respiratory rate of 20, saturating 92% on nasal cannula at 4 liters. INTAKE AND OUTPUT: There is no urine output recorded. Weight in the bed scale is 81.5 kg. PHYSICAL EXAMINATION: GENERAL: The patient is awake, alert, oriented times two, sitting up in the sofa, no apparent distress. HEAD AND NECK EXAMINATION: Extraocular muscles intact. Pupils equally round and reactive to light. He is wearing nasal cannula. Mucous membranes are moist. Neck is supple. Moderate elevation of jugular venous distention (JVD). CARDIOVASCULAR: S1, S2, regular rate. 1+ edema on the bilateral lower extremities. RESPIRATORY: Decreased breath sounds at the bases. Right is worse than left. Decreased vocal resonance on the right base up to the right midlung zone, as well. ABDOMEN: Is soft, positive bowel sounds. No organomegaly. Abdominal wall edema was noted. MUSCULOSKELETAL: No clubbing or cyanosis. Pulses are 2+. CENTRAL NERVOUS SYSTEM (FOOD SAFETY AUDITOR): He is oriented times two, sitting up in the sofa. LABORATORY REVIEW: Complete blood count (CBC) showed a WBC of 6.3, hemoglobin 10.6, platelets are 171. Basic metabolic profile (BMP) showed sodium 132, potassium 5.2, chloride 97, bicarbonate 26, BUN 61, creatinine is 5.7, albumin 2.1. CURRENT INPATIENT MEDICATIONS: The patient's medications were all reviewed by me. There is no change in the medications today as compared with yesterday. ASSESSMENT AND PLAN: 1. End-stage renal disease, on hemodialysis. The patient's regular dialysis days are Monday, Monday, Monday. He will be dialyzed today in the afternoon. I will try to remove at least 2 liters of fluid as tolerated by his blood pressure. 2. Chronic systolic congestive heart failure. The patient has low blood pressures. Volume removal is very limited because of chronic hypotension. I will try to dialyze him after giving him a dose of midodrine. Ultrafiltration goal is at least 2 liters. 3. Hypotension. Continue current dose of midodrine 10 mg by mouth three times a day. 4. Hyperkalemia. It is secondary to renal failure. Potassium is expected to grow after dialysis. 5. Hyponatremia. It is hypervolemic hyponatremia. Sodium is expected to improve after dialysis and fluid removal. DISPOSITION: The patient overall has a very poor prognosis. Family is discussing possible transfer to a penitentiary or even home with Hospice.
[2018-10-08] MEDS: WARFARIN SOD 3 MG TAB PO SCH (16:57)
[2018-10-08] MEDS: ASPIRIN 81 MG ENTERIC TAB PO SCH (20:28)
[2018-10-08] MEDS: ACETAMINOPHEN 500 MG TAB PO PRN (20:28)
[2018-10-08] MEDS: rOPINIRole 0.25 MG TAB(REQUIP) PO SCH (20:28)
[2018-10-08] MEDS: diphenhydrAMINE 12.5MG/5ML ELIXIR UDC PO PRN (20:28)
[2018-10-09] MEDS: LEVOTHYROXINE 100MCG TABLET (0.1MG) PO SCH (05:08)
[2018-10-09 06:00] VITALS: BP 94/58
[2018-10-09] MEDS: HumaLOG INSULIN (NovoLOG) PER UNIT SC SCH ×3 (07:30→17:40)
[2018-10-09] MEDS: SENOKOT S TAB PO SCH ×2 (09:04→20:38)
[2018-10-09] MEDS: FEBUXOSTAT 40 MG TABLET (ULORIC) PO SCH (09:04)
[2018-10-09] MEDS: LEVEMIR (INSULIN DETEMIR) 1 UNITS/0.01ML SC SCH (09:04)
[2018-10-09] MEDS: MIDODRINE 5 MG TAB PO SCH ×3 (09:04→17:39)
[2018-10-09] MEDS: AMIODARONE 200 MG TAB (PACERONE) PO SCH (09:04)
--- NOTE | 2018-10-09 12:08 | REP ---
Chest one-view HISTORY: Shortness of breath Comparison: 10/02/2018 Parenchymal densities are present in the lower lobes consistent with atelectasis or infiltrates. A small right pleural effusion is present increased compared to the previous study. The cardiac silhouette is enlarged. The pulmonary vasculature is normal in appearance. A catheter is present in the superior vena cava. Impression: 1. Bibasilar atelectasis or infiltrates. 2. Small right pleural effusion increased compared to the previous study. 3. Cardiomegaly. Electronically Signed by Jovany Tovar MD 10/09/2018 12:00 P
--- NOTE | 2018-10-09 12:49 | IPN ---
DATE OF SERVICE: 10/09/2018 SUBJECTIVE: The patient was seen and examined at the bedside today morning. He was sitting up in the sofa. He was getting ready to get his physical therapy when I saw him. He was dialyzed yesterday, 2 liters of fluid was removed which he has tolerated very well. He still reports weakness and mild amount of shortness of breath. OBJECTIVE: VITAL SIGNS: Temperature 98 degrees Fahrenheit, blood pressure 94/58, pulse is 70, respiratory rate of 22, saturating 100% on nasal cannula at 4 liters. INTAKE AND OUTPUT: There is no urine output recorded. Ultrafiltration with hemodialysis was 2 liters yesterday. Weight in the bed scale is 82 kg. PHYSICAL EXAMINATION: GENERAL: The patient is awake, alert, oriented times two, sitting up in the sofa, in mild respiratory distress. HEAD AND NECK EXAMINATION: Extraocular muscles intact. Pupils equally round and reactive to light. He is wearing nasal cannula. Mucous membranes are moist. Neck is supple. Moderate elevation of jugular venous distention (JVD). CARDIOVASCULAR: S1, S2, regular rate. 1+ edema of the bilateral lower extremities. RESPIRATORY: Decreased breath sounds at the bases, right is worse than left. Decreased vocal resonance on the right base as well. ABDOMEN: Is soft, positive bowel sounds. Nontender. No organomegaly. MUSCULOSKELETAL: No clubbing or cyanosis. Pulses are 2+. CENTRAL NERVOUS SYSTEM (TRAIN CONTROL TECHNICIAN): The patient is oriented times two, he moves his extremities and follows commands. LABORATORY REVIEW: Complete blood count (CBC) showed a WBC of 6.3, hemoglobin 10.6, from yesterday. There is no BMP available from today. IMAGING: Chest x-ray portable was done today morning, official report is pending. As read by myself, the patient has persistent right sided pleural effusion. CURRENT INPATIENT MEDICATIONS: The patient's medications were all reviewed by me. There is no change in the medications today as compared with yesterday. ASSESSMENT AND PLAN: 1. End-stage renal disease, on hemodialysis. The patient's regular dialysis days are Monday, Monday, Monday. He was dialyzed yesterday. Next hemodialysis will be tomorrow. I will try to remove more fluid if tolerated by his blood pressure. 2. Chronic systolic congestive heart failure. The patient has very low ejection fraction. He has persistent hypotension, lower extremity edema and recurrent right sided pleural effusion. He does not tolerate much ultrafiltration. Volume status is being optimized with dialysis. Next dialysis will be tomorrow morning. 3. Chronic hypotension. Continue current dose of midodrine 10 mg by mouth three times a day. 4. Right sided pleural effusion. Patient just got the right sided effusion tapped last week, however, it looks like it has reaccumulated. I would wait for the official report and order another thoracentesis if needed. 5. Hyponatremia. The patient has hypervolemic hyponatremia secondary to chronic systolic congestive heart failure.
[2018-10-09] MEDS: WARFARIN SOD 3 MG TAB PO SCH (17:39)
[2018-10-09] MEDS: ASPIRIN 81 MG ENTERIC TAB PO SCH (20:38)
[2018-10-09] MEDS: diphenhydrAMINE 12.5MG/5ML ELIXIR UDC PO PRN (20:38)
[2018-10-09] MEDS: rOPINIRole 0.25 MG TAB(REQUIP) PO SCH (20:38)
[2018-10-09] MEDS: ACETAMINOPHEN 500 MG TAB PO PRN (20:38)
[2018-10-10] MEDS: LEVOTHYROXINE 100MCG TABLET (0.1MG) PO SCH (05:35)
[2018-10-10] MEDS: MIDODRINE 5 MG TAB PO SCH ×3 (05:35→17:33)
[2018-10-10] MEDS: FEBUXOSTAT 40 MG TABLET (ULORIC) PO SCH (05:36)
[2018-10-10] MEDS: LEVEMIR (INSULIN DETEMIR) 1 UNITS/0.01ML SC SCH (05:36)
[2018-10-10] MEDS: AMIODARONE 200 MG TAB (PACERONE) PO SCH (05:36)
[2018-10-10] MEDS: SENOKOT S TAB PO SCH ×2 (05:36→20:41)
[2018-10-10 06:00] VITALS: BP 90/52
[2018-10-10] MEDS: HumaLOG INSULIN (NovoLOG) PER UNIT SC SCH ×3 (08:40→17:30)
[2018-10-10 09:31] LABS: BASO % 0.6 % (0.0-1.0); EOS # 0.2 10^3/uL (0.0-0.50); EOS % 2.3 % (0.0-3.0); HEMATOCRIT 34.1 % (42.0-52.0); HEMOGLOBIN 10.4 g/dl (13.5-17.5); LYMPH # 1.3 10^3/uL (1.5-4.5); LYMPH % 18.7 % (24.0-44.0); MEAN CORPUSCULAR HEMOGLOBIN 32.1 pg (27.0-33.0); MEAN CORPUSCULAR HGB CONC 30.5 g/dl (32.0-36.5); MEAN CORPUSCULAR VOLUME 105.2 fl (80.0-96.0); MONO # 0.7 10^3/uL (0.0-0.8); MONO % 10.4 % (0.0-5.0); NEUTROPHILS # 4.7 10^3/uL (1.8-7.7); NEUTROPHILS % 67.3 % (36.0-66.0); PLATELET COUNT, AUTOMATED 183 10^3/uL (150-450); RED BLOOD COUNT 3.24 10^6/uL (4.30-6.10)
[2018-10-10 09:45] LABS: INR 1.55; PROTHROMBIN TIME 18.8 SECONDS (12.1-14.4)
[2018-10-10 09:53] LABS: ALBUMIN 2.2 GM/DL (3.2-5.2); CALCIUM LEVEL 7.9 MG/DL (8.8-10.2); CREATININE FOR GFR 4.9 MG/DL (0.70-1.30); GLOMERULAR FILTRATION RATE 12.1 (>35); PHOSPHORUS LEVEL 4.8 MG/DL (2.5-4.9); POTASSIUM SERUM 4.6 MEQ/L (3.5-5.1)
[2018-10-10] MEDS ORDERED: HEPARIN 1,000 UNITS/ML 10ML VIAL (FOR RADIOLOGY& DIALYSIS ONLY) IV ONE (11:15)
[2018-10-10] MEDS ORDERED: HEPARIN 1,000 UNITS/ML 10ML VIAL (FOR RADIOLOGY& DIALYSIS ONLY) XX ONE (11:15)
--- NOTE | 2018-10-10 15:43 | IPN ---
DATE OF SERVICE: 10/10/2018 SUBJECTIVE: The patient was seen and examined at the bedside today morning. He was sitting up in the sofa. He got a chest x-ray done yesterday which showed a persistent mild amount of right sided pleural effusion. Patient is due for hemodialysis today. OBJECTIVE: VITAL SIGNS: Temperature 97.2 degrees Fahrenheit, blood pressure 90/52, pulse is 67, respiratory rate of 20, saturating 98% on nasal cannula at 4 liters. INTAKE AND OUTPUT: There is no urine output recorded. Weight in the bed scale is 80.8 kg. PHYSICAL EXAMINATION: GENERAL: The patient is awake, alert, oriented times two, sitting up in the sofa, in no apparent distress. HEAD AND NECK EXAMINATION: Extraocular muscles intact. Pupils equally round and reactive to light. Wearing a nasal cannula. Mucous membranes are moist. Jugular venous distention (JVD) is moderate elevated. CARDIOVASCULAR: S1, S2. 1+ edema of the bilateral lower extremities up to thighs. RESPIRATORY: Decreased breath sounds at the bases, right is worse than left. ABDOMEN: Is soft, positive bowel sounds. Nontender. No organomegaly. MUSCULOSKELETAL: No clubbing or cyanosis. Pulses are 2+. CENTRAL NERVOUS SYSTEM (METAL TANK BUILDER): He is oriented times two, he is oriented times two, moves extremities, unable to communicate with me. LABORATORY REVIEW: Complete blood count (CBC) showed a WBC of 7, hemoglobin 10.4, platelets are 183. BMP showed sodium 132, potassium 4.6, chloride 94, bicarbonate 27, BUN 46, creatinine 4.9, calcium 7.9, albumin 2.2. CURRENT INPATIENT MEDICATIONS: The patient's medications were all reviewed by me. There is no change in the medications today as compared with yesterday. ASSESSMENT AND PLAN: 1. End-stage renal disease, on hemodialysis. Today is patient's regular day of dialysis. He will be dialyzed today. I will try to removed at least 2.5 liters of fluid as tolerated by his blood pressure. 2. Chronic systolic congestive heart failure. The patient has persistent hypotension. Volume status is being optimized with dialysis, however, he does not tolerate dialysis very well because of very low blood pressures. 3. Chronic hypotension. Continue current dose of midodrine 10 mg by mouth three times a day. 4. Right sided pleural effusion. Patient has a recurrent right sided effusion, however, he is on Coumadin which will need to be held before we can tap him. I will try to manage his fluid overload with dialysis only. If his symptoms do not improve, then Eliquis will be stopped and another tap will be done. 5. Hyponatremia. The patient has hypervolemic hyponatremia. Sodium is expected to improve after dialysis.
[2018-10-10] MEDS: WARFARIN SOD 3 MG TAB PO SCH (17:33)
[2018-10-10] MEDS: ACETAMINOPHEN 500 MG TAB PO PRN (20:41)
[2018-10-10] MEDS: ASPIRIN 81 MG ENTERIC TAB PO SCH (20:41)
[2018-10-10] MEDS: diphenhydrAMINE 12.5MG/5ML ELIXIR UDC PO PRN (20:41)
[2018-10-10] MEDS: rOPINIRole 0.25 MG TAB(REQUIP) PO SCH (20:41)
[2018-10-11] MEDS: LEVOTHYROXINE 100MCG TABLET (0.1MG) PO SCH (05:00)
[2018-10-11 06:00] VITALS: BP 88/52
[2018-10-11] MEDS: HumaLOG INSULIN (NovoLOG) PER UNIT SC SCH ×3 (07:29→17:40)
[2018-10-11] MEDS: FEBUXOSTAT 40 MG TABLET (ULORIC) PO SCH (08:53)
[2018-10-11] MEDS: MIDODRINE 5 MG TAB PO SCH ×3 (08:53→16:23)
[2018-10-11] MEDS: SENOKOT S TAB PO SCH ×2 (08:53→20:14)
[2018-10-11] MEDS: AMIODARONE 200 MG TAB (PACERONE) PO SCH (08:53)
[2018-10-11] MEDS: LEVEMIR (INSULIN DETEMIR) 1 UNITS/0.01ML SC SCH (08:54)
--- NOTE | 2018-10-11 13:52 | IPN ---
DATE OF SERVICE: 10/11/2018 SUBJECTIVE: The patient was seen and examined at the bedside today morning. He was sitting up in the sofa. He was dialyzed yesterday, 2 liters of fluid was removed. He tolerated the hemodialysis procedure well. He still reports mild persistent shortness of breath. He denies any fevers and chills. OBJECTIVE: VITAL SIGNS: Temperature 98 degrees Fahrenheit, blood pressure 88/52, pulse is 85, respiratory rate of 20, saturating 95% on nasal cannula at 4 liters. INTAKE AND OUTPUT: Ultrafiltration with hemodialysis was 2 liters yesterday. Weight in the bed scale is 80.8 kg yesterday. PHYSICAL EXAMINATION: GENERAL: The patient is awake, alert, oriented times two, sitting up in the sofa, in mild respiratory distress wearing nasal cannula. HEAD AND NECK EXAMINATION: Extraocular muscles intact. Pupils equally round and reactive to light. Mild elevation of jugular venous distention (JVD). CARDIOVASCULAR: S1, S2. 1+ edema of the bilateral lower extremities. RESPIRATORY: Decreased breath sounds in the right base up to the right mid lung zone. Decreased vocal resonance on the right side. The patient has bronchial breath sounds on the right base. ABDOMEN: Is soft, positive bowel sounds. Nontender. No organomegaly. MUSCULOSKELETAL: No clubbing or cyanosis. Pulses are 2+. CENTRAL NERVOUS SYSTEM (STEEPLE JACK): The patient is oriented times two. He follows commands. Moves his extremities. LABORATORY REVIEW: Complete blood count (CBC) showed a WBC of 7, hemoglobin 10.4, platelets are 183. BMP showed sodium 132, potassium 4.6. These labs are from yesterday. CURRENT INPATIENT MEDICATIONS: The patient's medications were all reviewed by me. There is no change in the medications today as compared with yesterday. ASSESSMENT AND PLAN: 1. End-stage renal disease, on hemodialysis. The patient's regular day was yesterday. He was dialyzed yesterday, however, because of fluid overload the patient will get another session of ultrafiltration. 2. Chronic systolic congestive heart failure. Volume status is still decompensated. I will try to do a session of ultrafiltration today and remove two more liters of fluid. 3. Chronic hypotension. It is secondary to severe heart failure. Continue current dose of midodrine 10 mg by mouth three times a day. 4. Right sided pleural effusion. I will try to optimize his fluid status with hemodialysis only. He already got right sided pleural tap done more than a week ago. If needed, we will have to hold his Coumadin and do another session of therapeutic right pleural tap.
[2018-10-11 16:04] VITALS: BP 80/50
[2018-10-11 16:06] LABS: INR 1.59; PROTHROMBIN TIME 19.2 SECONDS (12.1-14.4)
[2018-10-11] MEDS: WARFARIN SOD 3 MG TAB PO SCH (16:24)
[2018-10-11 19:05] VITALS: BP 92/43
[2018-10-11] MEDS: rOPINIRole 0.25 MG TAB(REQUIP) PO SCH (20:14)
[2018-10-11] MEDS: ASPIRIN 81 MG ENTERIC TAB PO SCH (20:14)
[2018-10-12] MEDS: AMIODARONE 200 MG TAB (PACERONE) PO SCH (05:41)
[2018-10-12] MEDS: FEBUXOSTAT 40 MG TABLET (ULORIC) PO SCH (05:41)
[2018-10-12] MEDS: LEVOTHYROXINE 100MCG TABLET (0.1MG) PO SCH (05:42)
[2018-10-12] MEDS: MIDODRINE 5 MG TAB PO SCH ×3 (05:42→16:02)
[2018-10-12] MEDS: SENOKOT S TAB PO SCH ×2 (05:46→21:10)
[2018-10-12 06:00] VITALS: BP 88/53
[2018-10-12] MEDS: HumaLOG INSULIN (NovoLOG) PER UNIT SC SCH ×3 (06:51→16:37)
[2018-10-12 07:15] LABS: HEMATOCRIT 34.4 % (42.0-52.0); HEMOGLOBIN 10.4 g/dl (13.5-17.5); MEAN CORPUSCULAR HEMOGLOBIN 31.7 pg (27.0-33.0); MEAN CORPUSCULAR HGB CONC 30.2 g/dl (32.0-36.5); MEAN CORPUSCULAR VOLUME 104.9 fl (80.0-96.0); PLATELET COUNT, AUTOMATED 168 10^3/uL (150-450); RED BLOOD COUNT 3.28 10^6/uL (4.30-6.10); WHITE BLOOD COUNT 6.8 10^3/uL (4.0-10.0)
[2018-10-12 07:47] LABS: CALCIUM LEVEL 8.2 MG/DL (8.8-10.2); CREATININE FOR GFR 4.77 MG/DL (0.70-1.30); GLOMERULAR FILTRATION RATE 12.4 (>35); POTASSIUM SERUM 4.2 MEQ/L (3.5-5.1)
[2018-10-12] MEDS: LEVEMIR (INSULIN DETEMIR) 1 UNITS/0.01ML SC SCH (08:06)
[2018-10-12] MEDS ORDERED: DOXYCYCLINE HYCLATE 100 MG TAB PO SCH (09:00)
[2018-10-12] MEDS: DOXYCYCLINE HYCLATE 100 MG TAB PO SCH ×2 (09:00→21:10)
[2018-10-12] MEDS ORDERED: HEPARIN 1,000 UNITS/ML 10ML VIAL (FOR RADIOLOGY& DIALYSIS ONLY) XX ONE (10:15)
[2018-10-12] MEDS ORDERED: HEPARIN 1,000 UNITS/ML 10ML VIAL (FOR RADIOLOGY& DIALYSIS ONLY) IV ONE ×2 (10:15)
--- NOTE | 2018-10-12 11:13 | IPNPDOC ---
Date Seen The patient was seen on 10/12/18. Progress Note SUBJECTIVE: Patient was seen and examined this morning. He continues to complain of shortness of breath which he believes has been worsening. He denies cough. He states that it is difficult to lay down flat in bed. He also complains of pain in his left heel and redness in his second left toe. He states that he noticed it the other day. He denies any chills, fevers, nausea, or vomiting. He does not complain of pain in his toe. He says the pain in mainly in his left heel OBJECTIVE PHYSICAL EXAMINATION: VITAL SIGNS: Please see below. GENERAL: Awake alert and oriented. He is sitting in chair comfortably. He appears in no acute distress HEENT: Atraumatic normocephalic. Eyes are non-icteric. Trachea is midline. NC in place CARDIOVASCULAR: Normal S1,S2 Regular rate and rhythm. No clicks rubs or murmurs appreciated RESPIRATORY: Cleae to auscultation bilaterally. Mild bibasilar crackles. No wheezing, rhonchi, or rales ABDOMINAL: Soft nontender to palpation throughout. No rebound tenderness or guarding. Positive bowel sounds EXTREMITIES: Left heel ulceration. Left 3rd toe erythema and small punctuate lesion. Foot is cool and dry. No drainage. Pulses slightly diminished in bilate ral PT and DP. NEUROLOGICAL: No focal neurological deficits PSYCHOLOGICAL: Mood and affect appear appropriate LABORATORY DATA, IMAGING STUDIES, MICROBIOLOGY: Please see below. DVT prophylaxis ordered?: YES ASSESSMENT AND PLAN: Patient is a 87 year old male with history of Chronic systolic congestive heart failure, recurrent right sided pleural effusion, ESRD on HD, and chronic hypotension who originally presented to the ER with weakness and shortness of breath. Patient was found to be volume overloaded secondary to decompensated systolic CHF. Nephrology has been working to remove fluid via dialysis. PROBLEMS: 1. Left Toe Ulceration and Left Heel ulceration -Patient complained of pain in his foot this AM. He has an ulcer on his heel consistent with a pressure ulcer. He also has a slightly erythematous Left third toe. It is not tender to palpation but does have a small punctate lesion. -Arterial Doppler for arterial insufficiency as ulcer may be secondary to ischemic changes. -Doxycycline 100mg BID for possible soft tissue infection 2. Chronic Systolic Congestive Heart Failure -Patient is decompensated. He has had fluid removed with dialysis however, given his history of chronic hypotension his volume status is difficult to balance. His previous chest x-ray suggested an enlarging pleural effusion. He is currently on 4 L NC. His shortness of breath is more than likely associated with his decompensated systolic congestive heart failure 3. Right Sided Pleural Effusion -Previous chest x-ray suggested and enlargement of the patients effusion. This is secondary to his volume status. He has had a paracentesis previously. If better volume control can not be obtained through dialysis may consider thoracentesis 4. ESRD on HD -Patient is currently being followed by Nephrology. He has gotten additional ultrafiltration in addition to his dialysis yesterday. 5. Chronic Hypotension -Patient has chronic hypotension making his volume status difficult to cont rol. Continue Midodrine 10 mg TID 6. DVT prophylaxis -Patient is on Coumadin VS, I&O, 24H, Fishbone Vital Signs/I&O Vital Signs Date Time Temp Pulse Resp B/P (MAP) Pulse Ox O2 Delivery O2 Flow Rate FiO2 10/12/18 06:00 97.6 56 20 88/53 (65) 99 4.0 I&O- Last 24 Hours up to 6 AM 10/12/18 06:00 Intake Total 1590 ml Output Total 2000 ml Balance -410 ml Laboratory Data 24H LABS Laboratory Tests 2 10/11/18 14:48: Bedside Glucose (Misc Panel) 91 10/11/18 15:31: Prothrombin Time 19.2H, Prothromb Time International Ratio 1.59 10/11/18 16:33: Troponin I 0.04 10/11/18 16:49: Bedside Glucose (Misc Panel) 128H 10/11/18 20:46: Bedside Glucose (Misc Panel) 110 10/11/18 22:22: Troponin I 0.04 10/12/18 06:10: Bedside Glucose (Misc Panel) 109 10/12/18 06:55: Nucleated Red Blood Cells % (auto) 0.0, Anion Gap 12, Glomerular Filtration Rate 12.4L, Blood Urea Nitrogen 42H, Creatinine 4.77H, Sodium Level 135L, Potassium Level 4.2, Chloride Level 98, Carbon Dioxide Level 25, Calcium Level 8.2L CBC/BMP Laboratory Tests 10/12/18 06:55 Red Blood Count 3.28 L, Mean Corpuscular Volume 104.9 H, Mean Corpuscular Hemoglobin 31.7, Mean Corpuscular Hemoglobin Concent 30.2 L, Red Cell Distri bution Width 17.3 H, Calcium Level 8.2 L GME ATTESTATION GME ATTESTATION My faculty preceptor for this patient encounter was physically present during the encounter and was fully available. All aspects of the patient interview, examination, medical decision making process, and medical care plan development were reviewed and approved by the faculty preceptor. The faculty preceptor is aware and concurs with the plan as stated in the body of this note and will at test to such by his/her cosignature. MANUELITO KABA DO Oct 12, 2018 10:17
--- NOTE | 2018-10-12 13:09 | IPN ---
DATE OF SERVICE: 10/12/2018 SUBJECTIVE: The patient was seen and examined today morning in the radiology department. He was getting Doppler of the bilateral lower extremities done when I saw him. He denies any active complaints. He got the ultrafiltration done yesterday, 2 liters of fluid was removed. Blood pressures are soft, but stable. OBJECTIVE: VITAL SIGNS: Temperature 97.6 degrees Fahrenheit, blood pressure 88/53, pulse is 56, respiratory rate of 20, saturating 99% on 4 liters via nasal cannula. INTAKE AND OUTPUT: Ultrafiltration done yesterday at hemodialysis center was 2 liters. Weight in the bed scale is not available. PHYSICAL EXAMINATION: GENERAL: The patient is awake, alert, oriented times two, sitting up in the bed, in no apparent distress. HEAD AND NECK EXAMINATION: Extraocular muscles intact. Pupils equally round and reactive to light. Jugular venous distention (JVD) is mildly elevated. CARDIOVASCULAR: S1, S2. 1+ edema of the bilateral lower extremities. RESPIRATORY: Decreased breath sounds at the bases with decreased vocal resonance on the right base up to the right mid lung zone. ABDOMEN: Is soft, positive bowel sounds. Nontender. No organomegaly. MUSCULOSKELETAL: No clubbing or cyanosis. Pulses are 2+. 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 He follows commands. He is able to communicate. LABORATORY REVIEW: Complete blood count (CBC) showed a WBC of 6.8, hemoglobin 10.4, platelets are 168. BMP showed sodium 135, potassium 4.2, chloride 98, bicarbonate 25, BUN 42, creatinine 4.7. CURRENT INPATIENT MEDICATIONS: The patient's medications were all reviewed by me. He has been started on doxycycline 100 mg by mouth twice a day. Warfarin dose has been increased to 2.5 mg by mouth daily. No other change in the medications today. ASSESSMENT AND PLAN: 1. End-stage renal disease, on hemodialysis. Today is patient's regular day of dialysis. He will be dialyzed and I will try to remove at least 2 liters of fluid as tolerated by his blood pressure. 2. Chronic systolic congestive heart failure. The patient is decompensated at this time. He is getting back to back hemodialysis and ultrafiltration sessions. Continue fluid restriction. 3. Chronic hypotension. It is secondary to severe systolic heart failure. Continue current dose of midodrine 10 mg by mouth three times a day. 4. Right sided pleural effusion. Volume status is being optimized with dialysis. If pleural effusion persists, then he will get another pleural tap after holding Coumadin.
--- NOTE | 2018-10-12 15:29 | REP ---
DUPLEX DOPPLER ULTRASOUND LEFT LOWER EXTREMITY: Real-time ultrasound evaluation and duplex Doppler interrogation of the left lower extremity arterial system is performed. The study is somewhat limited due to patient motion and pain. Arhythmia is incidentally noted. Moderate plaquing is seen throughout the left lower extremity arterial system. There appear to be multiple focal stenoses throughout the mid and distal superficial femoral artery. There is monophasic waveform in the profunda, in the tibial peroneal trunk and proximal posterior tibial artery. The distal anterior and posterior tibial arteries appear occluded. Left ` Peak systolic velocity Common femoral artery 52.0 cm/s Profunda 106.4 Proximal SFA 85.9 Mid SFA 133.5 Distal SFA 93.1 Popliteal 37.0 Proximal JACK 49.2 Tibial peroneal trunk 28.7 Proximal ATTORNEY GENERAL 72.3 Electronically Signed by Sandro Pope MD 10/12/2018 07:57 P
[2018-10-12] MEDS: WARFARIN SOD 2.5 MG TAB PO SCH (16:03)
[2018-10-12] MEDS: diphenhydrAMINE 12.5MG/5ML ELIXIR UDC PO PRN (21:10)
[2018-10-12] MEDS: ASPIRIN 81 MG ENTERIC TAB PO SCH (21:10)
[2018-10-12] MEDS: ACETAMINOPHEN 500 MG TAB PO PRN (21:10)
[2018-10-12] MEDS: rOPINIRole 0.25 MG TAB(REQUIP) PO SCH (21:10)
--- NOTE | 2018-10-13 00:10 | ECGEPIP ---
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
[2018-10-13 06:00] VITALS: BP 91/55
[2018-10-13] MEDS: LEVOTHYROXINE 100MCG TABLET (0.1MG) PO SCH (06:43)
[2018-10-13] MEDS: HumaLOG INSULIN (NovoLOG) PER UNIT SC SCH ×3 (07:30→17:16)
[2018-10-13] MEDS: DOXYCYCLINE HYCLATE 100 MG TAB PO SCH ×2 (08:23→21:31)
[2018-10-13] MEDS: AMIODARONE 200 MG TAB (PACERONE) PO SCH (08:23)
[2018-10-13] MEDS: MIDODRINE 5 MG TAB PO SCH ×3 (08:23→17:14)
[2018-10-13] MEDS: FEBUXOSTAT 40 MG TABLET (ULORIC) PO SCH (08:23)
[2018-10-13] MEDS: SENOKOT S TAB PO SCH ×2 (08:23→21:31)
[2018-10-13] MEDS: LEVEMIR (INSULIN DETEMIR) 1 UNITS/0.01ML SC SCH (08:24)
[2018-10-13] MEDS: WARFARIN SOD 2.5 MG TAB PO SCH (17:15)
[2018-10-13] MEDS: rOPINIRole 0.25 MG TAB(REQUIP) PO SCH (21:31)
[2018-10-13] MEDS: ASPIRIN 81 MG ENTERIC TAB PO SCH (21:31)
[2018-10-13] MEDS: ACETAMINOPHEN 500 MG TAB PO PRN (21:31)
[2018-10-14 06:00] VITALS: BP 88/47
[2018-10-14] MEDS: LEVOTHYROXINE 100MCG TABLET (0.1MG) PO SCH (06:38)
[2018-10-14 07:24] LABS: HEMATOCRIT 35.4 % (42.0-52.0); HEMOGLOBIN 10.8 g/dl (13.5-17.5); MEAN CORPUSCULAR HEMOGLOBIN 32.2 pg (27.0-33.0); MEAN CORPUSCULAR HGB CONC 30.5 g/dl (32.0-36.5); MEAN CORPUSCULAR VOLUME 105.7 fl (80.0-96.0); PLATELET COUNT, AUTOMATED 198 10^3/uL (150-450); RED BLOOD COUNT 3.35 10^6/uL (4.30-6.10); WHITE BLOOD COUNT 7.3 10^3/uL (4.0-10.0)
[2018-10-14 07:34] LABS: INR 1.71; PROTHROMBIN TIME 20.4 SECONDS (12.1-14.4)
[2018-10-14 07:45] LABS: CALCIUM LEVEL 8.3 MG/DL (8.8-10.2); CREATININE FOR GFR 4.6 MG/DL (0.70-1.30); POTASSIUM SERUM 3.9 MEQ/L (3.5-5.1)
[2018-10-14] MEDS: FEBUXOSTAT 40 MG TABLET (ULORIC) PO SCH (08:25)
[2018-10-14] MEDS: SENOKOT S TAB PO SCH ×2 (08:25→20:17)
[2018-10-14] MEDS: MIDODRINE 5 MG TAB PO SCH ×3 (08:25→17:25)
[2018-10-14] MEDS: AMIODARONE 200 MG TAB (PACERONE) PO SCH (08:25)
[2018-10-14] MEDS: LEVEMIR (INSULIN DETEMIR) 1 UNITS/0.01ML SC SCH (08:25)
[2018-10-14] MEDS: DOXYCYCLINE HYCLATE 100 MG TAB PO SCH ×2 (08:25→20:17)
[2018-10-14] MEDS: HumaLOG INSULIN (NovoLOG) PER UNIT SC SCH ×3 (08:26→17:25)
--- NOTE | 2018-10-14 14:58 | IPN ---
DATE: 10/13/2018 SUBJECTIVE: The patient was seen and examined at the bedside today morning. He is afebrile, hemodynamically stable. He was dialyzed yesterday and two liters of fluid was removed. He reports his shortness of breath is better. OBJECTIVE: VITAL SIGNS: Temperature is 97.1 degrees Fahrenheit, blood pressure 91/55, pulse is 67, respiratory rate of 16, saturating 99% on nasal cannula at four liters. INTAKE AND OUTPUT: Fluid removal with hemodialysis yesterday was two liters. Weight in the bed scale is not available. PHYSICAL EXAMINATION: GENERAL: The patient is awake, alert and oriented times two. HEAD AND NECK: Extraocular muscles intact. Pupils equally round and reactive to light. Mildly elevated jugular venous distention (JVD). CARDIOVASCULAR: S1, S2, irregular heart rate, 1+ edema of the bilateral lower extremities. RESPIRATORY: Decreased breath sounds at the bases, decreased vocal resonance on the right base up to the mid lung zone. ABDOMEN: Soft, positive bowel sounds, nontender. No organomegaly. MUSCULOSKELETAL: No clubbing or cyanosis. Pulses are 2+. 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 He follows commands and move upper extremities. LABORATORY REVIEW: CBC showed a WBC of 6.8, hemoglobin 10.4 and that is from yesterday. There is no BMP available from today. CURRENT INPATIENT MEDICATIONS: The patient's medications were all reviewed by me. There is no change in the medications today as compared with yesterday. ASSESSMENT AND PLAN: 1. End-stage renal disease on hemodialysis. The patient's regular dialysis days are Monday, Monday, Monday. He was dialyzed yesterday. Next hemodialysis will be done on Monday. 2. Chronic systolic congestive heart failure. The patient has severe heart failure. He got [id number] hemodialysis and ultrafiltration for the last three days. Volume status is better. Continue fluid restriction and low-salt diet. 3. Chronic hypotension. Blood pressure is stable with the current dose of midodrine 10 mg by mouth three times a day. 4. Right-sided pleural effusion. The patient is status post pleural tap during this hospitalization. Continue aggressive fluid removal during dialysis as tolerated by the patient's blood pressure.
[2018-10-14] MEDS: WARFARIN SOD 2.5 MG TAB PO SCH (17:25)
[2018-10-14] MEDS: ASPIRIN 81 MG ENTERIC TAB PO SCH (20:17)
[2018-10-14] MEDS: diphenhydrAMINE 12.5MG/5ML ELIXIR UDC PO PRN (20:17)
[2018-10-14] MEDS: ACETAMINOPHEN 500 MG TAB PO PRN (20:17)
[2018-10-14] MEDS: rOPINIRole 0.25 MG TAB(REQUIP) PO SCH (20:17)
[2018-10-15 06:00] VITALS: BP 94/54
[2018-10-15] MEDS: FEBUXOSTAT 40 MG TABLET (ULORIC) PO SCH (06:15)
[2018-10-15] MEDS: AMIODARONE 200 MG TAB (PACERONE) PO SCH (06:15)
[2018-10-15] MEDS: DOXYCYCLINE HYCLATE 100 MG TAB PO SCH ×2 (06:15→21:05)
[2018-10-15] MEDS: LEVOTHYROXINE 100MCG TABLET (0.1MG) PO SCH (06:15)
[2018-10-15] MEDS: SENOKOT S TAB PO SCH ×2 (06:15→21:05)
[2018-10-15] MEDS: MIDODRINE 5 MG TAB PO SCH ×3 (06:16→15:32)
[2018-10-15] MEDS: LEVEMIR (INSULIN DETEMIR) 1 UNITS/0.01ML SC SCH (06:16)
[2018-10-15] MEDS: HumaLOG INSULIN (NovoLOG) PER UNIT SC SCH ×3 (07:20→17:18)
--- NOTE | 2018-10-15 10:02 | IPN ---
DATE: 10/14/2018 SUBJECTIVE: The patient is seen and examined this morning sitting out of bed to the chair, having lunch. Family is visiting. He denies any overnight complaints. He is continuing to require 4 liters of supplemental oxygen. He is for dialysis tomorrow. VITAL SIGNS: Temperature 97.2, pulse 70, respiratory rate 16 to 22, blood pressure 88/47, saturating 92% on 4 liters nasal cannula. Intake yesterday was 960. Weight on the bed scale today is not recorded. GENERAL: The patient is seen sitting out of bed to the chair. Elderly male, frail, in no acute respiratory distress. Extraocular muscles are intact. Sclerae are anicteric. Jugular veins are mildly elevated while he is sitting upright. There is a tunneled hemodialysis catheter present. CARDIAC: S1, S2. Irregularly irregular. 1+ edema in the lower extremities. RESPIRATORY: Diminished breath sounds at both bases, more so on the right. ABDOMEN: Soft. Positive bowel sounds. MUSCULOSKELETAL: No cyanosis. There is peripheral edema present. There are some dressings on the left foot. NEUROLOGIC: He is cooperative with the physical examination and answers simple questions appropriately and oriented to person and place. LABORATORIES: White count 7.3, hemoglobin 10.8, platelets 198. Sodium 136, potassium 3.9, bicarbonate 26. INPATIENT MEDICATIONS: Reviewed by myself and unchanged from prior. PROBLEMS: 1. End stage renal disease on hemodialysis, usually on a Monday, Monday, Monday maintenance schedule. Chronically volume overloaded and hypotensive. Volume status is very difficult to optimize given severe systolic congestive heart failure (CHF) and chronic hypotension despite maximal midodrine. Next dialysis will be on Monday with ultrafiltration and fluid removal as tolerated by hemodynamics. His overall prognosis is poor but he wishes to continue with dialysis. 2. Chronic systolic congestive heart failure (CHF). Ejection fraction of about 20%, volume overloaded, pleural effusion, peripheral edema. Has received extra dialysis sessions and ultrafiltration on this admission. Continue with fluid restriction and low salt diet and continue with fluid removal as tolerated by hemodynamics on dialysis. 3. Chronic hypotension. The patient continues on midodrine 10 mg by mouth three times a day. Hypotension of hemodialysis complicates ability to remove fluid. 4. Anemia related to chronic renal failure. Hemoglobin is 10.8, which is optimal. 5. Right sided pleural effusion. Continue aggressive fluid removal during dialysis as tolerated by his borderline blood pressures. He is requiring 4 liters of supplemental oxygen. I feel he will likely need thoracentesis to help with his oxygen requirements.
[2018-10-15 10:07] LABS: HEMATOCRIT 35.6 % (42.0-52.0); HEMOGLOBIN 10.7 g/dl (13.5-17.5); MEAN CORPUSCULAR HEMOGLOBIN 31.8 pg (27.0-33.0); MEAN CORPUSCULAR HGB CONC 30.1 g/dl (32.0-36.5); PLATELET COUNT, AUTOMATED 219 10^3/uL (150-450); RED BLOOD COUNT 3.36 10^6/uL (4.30-6.10); WHITE BLOOD COUNT 7.1 10^3/uL (4.0-10.0)
[2018-10-15 10:33] LABS: CALCIUM LEVEL 8.5 MG/DL (8.8-10.2); CREATININE FOR GFR 5.67 MG/DL (0.70-1.30); GLOMERULAR FILTRATION RATE 10.2 (>35); POTASSIUM SERUM 4.6 MEQ/L (3.5-5.1)
[2018-10-15] MEDS ORDERED: HEPARIN 1,000 UNITS/ML 10ML VIAL (FOR RADIOLOGY& DIALYSIS ONLY) IV ONE (11:00)
[2018-10-15] MEDS ORDERED: HEPARIN 1,000 UNITS/ML 10ML VIAL (FOR RADIOLOGY& DIALYSIS ONLY) XX ONE (11:00)
[2018-10-15 15:27] VITALS: BP 76/58
[2018-10-15] MEDS: WARFARIN SOD 2.5 MG TAB PO SCH (17:18)
[2018-10-15] MEDS: ASPIRIN 81 MG ENTERIC TAB PO SCH (21:05)
[2018-10-15] MEDS: rOPINIRole 0.25 MG TAB(REQUIP) PO SCH (21:05)
--- NOTE | 2018-10-15 21:22 | REP ---
Clinical: Pleural effusion. Comparison: 10/09/2018. Findings: Bibasilar opacities consistent with moderate pleural effusions (right greater than left) increased interstitial markings and cephalization consistent with elements of interstitial edema. Cardiomegaly remains stable. Dialysis catheter with tip in the SVC/right atrium. Evidence of prior sternotomy and aortic valve repair. Skeletal structures demonstrate degenerative changes. Impression: 1. Bibasilar opacities consistent with moderate pleural effusions and atelectasis similar to prior examination. Associated pulmonary vascular congestion/interstitial edema noted. Electronically Signed by Casey Jackson MD 10/15/2018 09:14 P
--- NOTE | 2018-10-16 01:44 | IPN ---
DATE OF SERVICE: 10/15/2018 SUBJECTIVE: The patient was seen and examined in the dialysis unit today receiving his treatment. His blood pressures have been quite soft on dialysis and systolic was around 70s. We were only able to take off 1 liter of fluid. The patient continues to require significant supplemental oxygen. VITAL SIGNS: Temperature 98.4, pulse 73, respiratory rate 22, blood pressure (BP) 94/54, saturating 98% on 4 liters nasal cannula. Intake yesterday was 960. Dialysis today removed 1 liter. Weight on the bed scale today is 77.3 kg. REVIEW OF SYSTEMS: GENERAL: The patient is seen in the hemodialysis unit sitting in bed. Family present at the bedside receiving his treatment in no acute respiratory distress. Very elderly and frail appearing male. HEENT: Extraocular muscles are intact. Sclerae are anicteric and watery. Jugular veins are mildly elevated. There is a tunneled hemodialysis catheter present in the right chest wall which is in use. CARDIAC: S1, S2, irregularly irregular, 1+ edema in the peripheries. RESPIRATORY: Diminished breath sounds at both bases but more so on the right. ABDOMEN: The abdomen is soft. NEUROLOGIC: He is cooperative with physical examination and answers simple questions appropriately and is oriented to person, place and situation. LABORATORIES: White count 7.1, hemoglobin 10.7, platelets 219. Sodium 138, potassium 4.6, bicarbonate 26. INPATIENT MEDICATIONS: Inpatient medications are reviewed by myself and no change from prior. PROBLEMS: 1. End-stage renal disease on hemodialysis on a Monday, Monday and Monday maintenance schedule chronically volume overloaded and hypotensive. Volume status is difficult to optimize given his severe systolic congestive heart failure and chronic hypotension despite maximal midodrine. Unfortunately, during dialysis today his systolic was only in the 70s and we were unable to remove anything beyond 1 liter of fluid. His overall prognosis is quite poor but he wishes to continue with dialysis. 2. Chronic systolic congestive heart failure, volume overloaded with peripheral edema, pleural effusion and unfortunately intolerant of aggressive ultrafiltration and fluid removal due to chronic hypotension. Continue with maximal midodrine and with fluid restriction and low salt diet and fluid removal as tolerated by hemodynamics on dialysis. Overall prognosis is poor and this has been discussed previously with the patient and his family at length. 3. Pleural effusion. The patient is requiring 4 liters of supplemental oxygen. I was only able to take off 1 liter of fluid on dialysis today. His systolic was around 70s to 80s despite midodrine 10 mg by mouth three times a day. He will likely require another thoracentesis. Will defer to primary team. 4. Anemia related to chronic renal failure. Hemoglobin is 10.7 which is satisfactory and he continues on Aranesp.
[2018-10-16] MEDS: LEVOTHYROXINE 100MCG TABLET (0.1MG) PO SCH (05:17)
[2018-10-16 06:00] VITALS: BP 97/55
[2018-10-16] MEDS: HumaLOG INSULIN (NovoLOG) PER UNIT SC SCH ×3 (08:14→17:30)
[2018-10-16] MEDS: DOXYCYCLINE HYCLATE 100 MG TAB PO SCH ×2 (08:14→20:18)
[2018-10-16] MEDS: LEVEMIR (INSULIN DETEMIR) 1 UNITS/0.01ML SC SCH (08:14)
[2018-10-16] MEDS: AMIODARONE 200 MG TAB (PACERONE) PO SCH (08:15)
[2018-10-16] MEDS: FEBUXOSTAT 40 MG TABLET (ULORIC) PO SCH (08:15)
[2018-10-16] MEDS: MIDODRINE 5 MG TAB PO SCH ×3 (08:15→16:33)
[2018-10-16] MEDS: SENOKOT S TAB PO SCH ×2 (08:15→20:19)
--- NOTE | 2018-10-16 17:19 | IPN ---
DATE: 10/16/2018 SUBJECTIVE: Patient seen and examined this morning at the bedside sitting out of bed to the chair. He notes shortness of breath when he lies in bed if the head of the bed has not been elevated. Unfortunately during dialysis yesterday, we were only able to take off one liter of fluid because of his significant hypotension of dialysis. His chest x-ray shows increasing pleural effusion bilaterally, but right more than left. I had a lengthy discussion with him regarding his inability to tolerate aggressive ultrafiltration and fluid removal and also his ongoing pulmonary edema and effusions over this 3-week hospital stay. VITAL SIGNS: Temperature 98.4, pulse 72, respiratory rate 17, blood pressure systolic 76 to 97 over diastolic 50s, saturating 95% on 4 liters nasal cannula. Intake yesterday was 660, dialysis yesterday removed one liter, net negative 340. Weight on the bed scale today was not recorded. General: The patient is seen sitting out of bed to the chair, elderly and frail male, in no acute respiratory distress. Extraocular muscles are intact. There is some bitemporal wasting. Sclerae are watery. There is a tunneled hemodialysis catheter present in the right chest wall with a dressing. Cardiac: S1, S2, irregularly irregular. Pedal edema and trace edema in the peripheries. Respiratory: Shows diminished breath sounds at both lung bases but more prominent on the right. The abdomen is soft and nontender. Neurologic: He is oriented times three, interactive and appropriate, at baseline mentation. LABORATORY: White count 7.1, hemoglobin 10.7. Sodium 138, potassium 4.6. INPATIENT MEDICATIONS: Reviewed by myself. His Coumadin is held. His remainder of medications are unchanged from prior. PROBLEMS: 1. End-stage renal disease, on hemodialysis on Monday, Monday, Monday maintenance schedule, chronically volume overloaded and chronic hypotension of hemodialysis despite use of maximal midodrine. Volume status is difficult to optimize given his severe systolic congestive heart failure and chronic hypotension. We could only take one liter off with dialysis yesterday. His systolic was in the 70s throughout the treatment. He continues to have ongoing bilateral pleural effusions and is requiring significant supplemental oxygen. He is going to need another thoracentesis on the right. I have discussed with him regarding the troubles we are having removing fluid with dialysis, but the patient wants to continue with dialysis and full treatment at this time. 2. Chronic systolic congestive heart failure, volume overloaded with bilateral pleural effusions and unfortunately intolerant of aggressive ultrafiltration due to chronic hypotension. Continue midodrine 10 mg by mouth three times a day. Continue fluid restriction and low salt diet. Continue fluid removal as tolerated by hemodynamics on dialysis. Overall prognosis is poor, but we will continue dialysis as long as the patient wants to. 3. Pleural effusion, right greater than left. Chest x-ray from yesterday is noted. He is on four liters supplemental oxygen. I am pessimistic of our ability to adequately control his effusions with dialysis alone because of his hypotension. I would like him to be scheduled for another thoracentesis. Discussed with the primary team. His Coumadin has been held. 4. Anemia related to chronic renal failure. Hemoglobin is at target, and he continues on Aranesp. 5. Atrial fibrillation. Anticoagulant is held. He has been discontinued off of rate controlling medications in the past because of blood pressure issues.
[2018-10-16] MEDS: rOPINIRole 0.25 MG TAB(REQUIP) PO SCH (20:18)
[2018-10-16] MEDS: ASPIRIN 81 MG ENTERIC TAB PO SCH (20:18)
[2018-10-16] MEDS: diphenhydrAMINE 12.5MG/5ML ELIXIR UDC PO PRN (22:27)
[2018-10-16] MEDS: ACETAMINOPHEN 500 MG TAB PO PRN (22:27)
[2018-10-17 06:00] VITALS: BP 109/58
[2018-10-17] MEDS: AMIODARONE 200 MG TAB (PACERONE) PO SCH (06:32)
[2018-10-17] MEDS: FEBUXOSTAT 40 MG TABLET (ULORIC) PO SCH (06:32)
[2018-10-17] MEDS: LEVOTHYROXINE 100MCG TABLET (0.1MG) PO SCH (06:32)
[2018-10-17] MEDS: DOXYCYCLINE HYCLATE 100 MG TAB PO SCH ×2 (06:32→20:48)
[2018-10-17] MEDS: MIDODRINE 5 MG TAB PO SCH ×3 (06:33→15:15)
[2018-10-17] MEDS: SENOKOT S TAB PO SCH ×2 (06:33→20:48)
[2018-10-17] MEDS: HumaLOG INSULIN (NovoLOG) PER UNIT SC SCH ×3 (07:30→17:30)
[2018-10-17 08:00] LABS: BASO # 0.1 10^3/uL (0.0-0.2); BASO % 1.1 % (0.0-1.0); EOS # 0.2 10^3/uL (0.0-0.50); EOS % 2.9 % (0.0-3.0); HEMATOCRIT 37.1 % (42.0-52.0); HEMOGLOBIN 11.2 g/dl (13.5-17.5); LYMPH # 2.5 10^3/uL (1.5-4.5); LYMPH % 32.8 % (24.0-44.0); MEAN CORPUSCULAR HEMOGLOBIN 32.4 pg (27.0-33.0); MEAN CORPUSCULAR HGB CONC 30.2 g/dl (32.0-36.5); MEAN CORPUSCULAR VOLUME 107.2 fl (80.0-96.0); MONO # 0.8 10^3/uL (0.0-0.8); MONO % 10.7 % (0.0-5.0); NEUTROPHILS # 3.9 10^3/uL (1.8-7.7); NEUTROPHILS % 52.1 % (36.0-66.0); PLATELET COUNT, AUTOMATED 206 10^3/uL (150-450); RED BLOOD COUNT 3.46 10^6/uL (4.30-6.10); WHITE BLOOD COUNT 7.5 10^3/uL (4.0-10.0)
[2018-10-17] MEDS: LEVEMIR (INSULIN DETEMIR) 1 UNITS/0.01ML SC SCH (08:05)
[2018-10-17 08:10] LABS: INR 2.06; PROTHROMBIN TIME 23.6 SECONDS (12.1-14.4)
[2018-10-17 08:20] LABS: CALCIUM LEVEL 8.3 MG/DL (8.8-10.2); CREATININE FOR GFR 5.04 MG/DL (0.70-1.30); GLOMERULAR FILTRATION RATE 11.7 (>35); MAGNESIUM LEVEL 1.8 MG/DL (1.8-2.4); POTASSIUM SERUM 4.3 MEQ/L (3.5-5.1)
[2018-10-17] MEDS ORDERED: HEPARIN 1,000 UNITS/ML 10ML VIAL (FOR RADIOLOGY& DIALYSIS ONLY) IV ONE (11:30)
[2018-10-17] MEDS ORDERED: HEPARIN 1,000 UNITS/ML 10ML VIAL (FOR RADIOLOGY& DIALYSIS ONLY) XX ONE (11:30)
[2018-10-17] MEDS ORDERED: PHYTONADIONE 1 MG/0.5 ML SYRINGE (J3430) SQ ONE (18:00)
--- NOTE | 2018-10-17 18:28 | IPNPDOC ---
Text Note Date of Service The patient was seen on 10/17/18. NOTE Subjective: Patient is a 7-year-old male with a PMHx of End Stage CHF (EF 20%, Possibly diastolic dysfunction), A. fib (on Coumadin), AVR (Porcine), CAD s/p CABG, ESRD on HD, DM2, who presented to the ER with weakness and lightheadedness. In the emergency room, patient was found to be hypotensive and received IV fluid hydration. Patient was admitted to the hospice service for further evaluation and treatment Ultimately throughout the course patient was found to be in signs of fluid overload and required fluid removal via hemodialysis as well as a thoracentesis for optimization. Patient was seen and examined at the bedside. This morning patient notes that he is still short of breath and is not significantly improved over last couple of days. Denies any chest pain, palpitations or cough. Denies any abdominal pain, nausea, vomiting, constipation, diarrhea. Patient is still experiencing significant lower extremity swelling. Objective: Vitals (See below) General: Lying in bed, no acute distress, comfortable, AAOx3 HEENT: NC, AT CVS: RRR, +S1S2 Lungs: Decreased breath sounds at right lung base, mild crackles at L bases, no rhonchi or wheezing Abdomen: Soft, ND, NT Extremities: 2+ pitting edema, - Calf tenderness Assessment and plan: Left toe erythema / Left heel erythema - possibly 2/2 cellulitis - Improvement of erythema / warm / tenderness - c/w Doxycycline (Day #5) Chronic Decompensated systolic and possibly diastolic congestive heart failure - Physical reveals signs of fluid overload - ECHO 07/14/18: EF 20%, Possibly diastolic dysfunction, moderate TR, Elevated CVP - CXR 10/09: 1. Bibasilar opacities consistent with moderate pleural effusions and atelectasis similar to prior examination. Associated pulmonary vascular congestion/interstitial edema noted. - Patient does not make much urine and dialysis is used to remove fluid Right-sided pleural effusion - Will repeat imaging to confirm - Plan for IR guided drainage tomorrow; awaiting INR to become <1.5 - Will provide Vitamin K 1 mg subcutaneously today; based on INR tomorrow will provide 1 unit FFP ESRD on HD - c/w HD as scheduled Chronic Hypotension - Continue with Midodrine at maximum dose - Difficulty to remove fluid with hypotension A. 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5 H, Neutrophils (%) (Auto) 52.1, Lymphocytes (%) (Auto) 32.8, Monocytes (%) (Auto) 10.7 H, Eosinophils (%) (Auto) 2.9, Basophils (%) (Auto) 1.1 H, Neutrophils # (Auto) 3.9, Lymphocytes # (Auto) 2.5, Monocytes # (Auto) 0.8, Eosinophils # (Auto) 0.2, Basophils # (Auto) 0.1, Calcium Level 8.3 L Vital Signs Date Time Temp Pulse Resp B/P (MAP) Pulse Ox O2 Delivery O2 Flow Rate FiO2 10/17/18 07:45 3.0 10/17/18 06:00 98.1 61 16 109/58 (75) 95 I&O- Last 24 Hours up to 6 AM 10/17/18 06:00 Intake Total 1950 ml Balance 1950 ml BLAIR NEAL MD Oct 17, 2018 18:28
--- NOTE | 2018-10-17 19:05 | REP ---
Clinical: Pleural effusion. Technique: PA and lateral. Comparison: 10/15/2018. Findings: Moderate/large right pleural effusion along with bilateral lower lobe atelectasis/infiltrates are again noted. Cardiomegaly is appreciated. Evidence of prior sternotomy, CABG and aortic valve repair. Double-lumen dialysis catheter with tip in the SVC/right atrium. Skeletal structures intact. Prior right shoulder repair. Impression: 1. [id number] right pleural effusion with bilateral lower lobe infiltrate/atelectasis. Electronically Signed by Casey Jackson MD 10/17/2018 06:56 P
[2018-10-17] MEDS: ASPIRIN 81 MG ENTERIC TAB PO SCH (20:48)
[2018-10-17] MEDS: rOPINIRole 0.25 MG TAB(REQUIP) PO SCH (20:48)
[2018-10-18] MEDS: LEVOTHYROXINE 100MCG TABLET (0.1MG) PO SCH (05:43)
[2018-10-18 06:00] VITALS: BP 86/50
[2018-10-18 06:18] LABS: BASO # 0.1 10^3/uL (0.0-0.2); BASO % 0.9 % (0.0-1.0); EOS # 0.2 10^3/uL (0.0-0.50); EOS % 2.7 % (0.0-3.0); HEMATOCRIT 36.8 % (42.0-52.0); HEMOGLOBIN 11.2 g/dl (13.5-17.5); LYMPH # 1.9 10^3/uL (1.5-4.5); LYMPH % 29.9 % (24.0-44.0); MEAN CORPUSCULAR HEMOGLOBIN 32.6 pg (27.0-33.0); MEAN CORPUSCULAR HGB CONC 30.4 g/dl (32.0-36.5); MONO # 0.8 10^3/uL (0.0-0.8); MONO % 12.9 % (0.0-5.0); NEUTROPHILS # 3.4 10^3/uL (1.8-7.7); PLATELET COUNT, AUTOMATED 166 10^3/uL (150-450); RED BLOOD COUNT 3.44 10^6/uL (4.30-6.10); WHITE BLOOD COUNT 6.4 10^3/uL (4.0-10.0)
[2018-10-18 06:23] LABS: INR 1.81; PROTHROMBIN TIME 21.3 SECONDS (12.1-14.4)
[2018-10-18 06:43] LABS: CALCIUM LEVEL 8.2 MG/DL (8.8-10.2); CREATININE FOR GFR 3.51 MG/DL (0.70-1.30); GLOMERULAR FILTRATION RATE 17.7 (>35); MAGNESIUM LEVEL 1.7 MG/DL (1.8-2.4); POTASSIUM SERUM 4.5 MEQ/L (3.5-5.1)
[2018-10-18] MEDS: FEBUXOSTAT 40 MG TABLET (ULORIC) PO SCH (08:25)
[2018-10-18] MEDS: DOXYCYCLINE HYCLATE 100 MG TAB PO SCH ×2 (08:25→20:32)
[2018-10-18] MEDS: HumaLOG INSULIN (NovoLOG) PER UNIT SC SCH ×3 (08:25→17:26)
[2018-10-18] MEDS: MIDODRINE 5 MG TAB PO SCH ×3 (08:25→17:27)
[2018-10-18] MEDS: AMIODARONE 200 MG TAB (PACERONE) PO SCH (08:25)
[2018-10-18] MEDS: LEVEMIR (INSULIN DETEMIR) 1 UNITS/0.01ML SC SCH (08:26)
[2018-10-18] MEDS: SENOKOT S TAB PO SCH ×2 (08:26→20:32)
--- NOTE | 2018-10-18 10:07 | IPN ---
DATE OF SERVICE: 10/17/2018 SUBJECTIVE: Patient seen and examined this morning in the hemodialysis unit receiving his maintenance treatment. He reports some insomnia overnight and requests a stronger medication than Benadryl. He is advised that something stronger is inadvisable. VITAL SIGNS: Temperature 98.1, pulse 61, respiratory rate 16, blood pressure systolic 109/58, saturating 95% on 2 liters nasal cannula. Intake yesterday was 1950, dialysis today removed 2 liters. Weight on the bed scale today is not recorded. General: The patient is seen in the hemodialysis unit receiving his maintenance treatment with goal fluid removal of 2 liters. Family present at the bedside. He is wake, alert, oriented, comfortable, in no acute distress. Extraocular muscles are intact. Tongue is moist. There is a tunneled hemodialysis catheter present in the right chest wall in use. Cardiac: S1 and S2, regular rate and rhythm. Lungs: Diminished breath sounds at the bilateral bases, but more so on the right. There are crackles. The abdomen is soft and nontender. Extremities show 1+ pitting edema in the legs. LABORATORIES: White count 7.5, hemoglobin 11.2, sodium 137, potassium 4.3, bicarbonate 26. Chest x-ray done today shows moderate to large right pleural effusion. INPATIENT MEDICATIONS: Reviewed by myself. No change from prior. PROBLEMS: 1. End-stage renal disease, on hemodialysis on a Monday, Monday, Monday schedule. Chronically volume overloaded and chronic hypotension of hemodialysis despite use of maximal midodrine. Volume status is difficult to optimize given severe systolic congestive heart failure and chronic hypotension. We were able to take off 2 liters today which is pretty close to the maximum that he tolerates. He continues to have ongoing pleural effusions bilaterally, right greater than left, and dialysis alone is unlikely to be able to control them given that we have trouble with ultrafiltration because of his hypotension. 2. Chronic systolic congestive heart failure, volume overloaded, with bilateral pleural effusions, and unfortunately intolerant of aggressive ultrafiltration due to chronic hypotension. Continue midodrine 10 mg by mouth three times a day. Continue fluid restriction and low salt diet. Nursing staff recorded really a significant amount of fluid intake yesterday. I am again entering his 1.5 liter fluid restriction. Continue fluid removal as tolerated by hemodynamics on dialysis. Overall prognosis is poor, but we will continue with dialysis as long as the patient wants to. 3. Pleural effusions, right greater than left. Chest x-ray noted moderate to large right pleural effusion. Has been requiring anywhere between 2-4 liters of supplemental oxygen. I am pessimistic of our ability to adequately control his effusions with dialysis alone because of hypotension. He is being set up for another thoracentesis. I believe this is the fourth time this effusion on the right will be drained. He may benefit from POREX catheter placement. 4. Anemia related to chronic renal failure. Hemoglobin is at target. He continues on Aranesp.
--- NOTE | 2018-10-18 11:21 | IPNPDOC ---
Text Note Date of Service The patient was seen on 10/18/18. NOTE Subjective: Patient is a 7-year-old male with a PMHx of End Stage CHF (EF 20%, Possibly diastolic dysfunction), A. fib (on Coumadin), AVR (Porcine), CAD s/p CABG, ESRD on HD, DM2, who presented to the ER with weakness and lightheadedness. In the emergency room, patient was found to be hypotensive and received IV fluid hydration. Patient was admitted to the hospice service for further evaluation and treatment Ultimately throughout the course patient was found to be in signs of fluid overload and required fluid removal via hemodialysis as well as a thoracentesis for optimization. Patient was seen and examined at the bedside. Patient notes that his breathing is doing better. He denies any significant chest pain, shortness of breath or palpitations. Denies nausea, vomiting, abdominal pain, constipation, or diarrhea. Objective: Vitals (See below) General: Lying in bed, no acute distress, comfortable, AAOx3 HEENT: NC, AT CVS: RRR, +S1S2 Lungs: Again, there are decreased breath sounds at right lung base. There are cr ackles at the left lung base. No evidence of wheezing or rhonchi Abdomen: Soft, nondistended, without tenderness Extremities: trace pitting edema, - Calf tenderness Assessment and plan: Left toe erythema / Left heel erythema - possibly 2/2 cellulitis, possibly 2/2 Stage 1 pressure Ulcer - Improvement of erythema / warm / tenderness - c/w Doxycycline (Day #6) Chronic Decompensated systolic and possibly diastolic congestive heart failure - Physical reveals signs of fluid overload - ECHO 07/14/18: EF 20%, Possibly diastolic dysfunction, moderate TR, Elevated CVP - CXR 10/09: 1. Bibasilar opacities consistent with moderate pleural effusions and atelectasis similar to prior examination. Associated pulmonary vascular congestion/interstitial edema noted. - Patient does not make much urine and dialysis is used to remove fluid Right-sided pleural effusion - CXR 10/17: [id number] right pleural effusion with bilateral lower lobe infiltrate/atelectasis. - s/p Vitamin K 1 mg SQ on 10/17/18 - Plan for IR guided drainage; discussed with interventional radiology, will proceed with INR of 1.8 ESRD on HD - c/w HD as scheduled Chronic Hypotension - Continue with Midodrine at maximum dose - Difficulty to remove fluid with hypotension A. fib - c/w rate / rhythm control with Amiodarone - INR subtherapeutic - Hold Coumadin (re: Thoracentesis) - c/w ASA 81 AVR with Porcine valve CAD s/p CABG - c/w ASA DM2 - c/w ISS and Levemir RLS - c/w Ropinirole Gout - c/w Uloric DVT prophylaxis - c/w Coumadin Prognosis: - Very poor Code Status: - DNR Disposition: - Discussions about hospice were had with the patient, however, he is not yet agreeable to this - Family is aware of his poor prognosis and end stage heart failure - Plan for thoracentesis today VS,Doris, I+O VS, Doris, I+O Laboratory Tests 10/18/18 05:20 Red Blood Count 3.44 L, Mean Corpuscular Volume 107.0 H, Mean Corpuscular Hemoglobin 32.6, Mean Corpuscular Hemoglobin Concent 30.4 L, Red Cell Distribution Width 18.3 H, Neutrophils (%) (Auto) 53.0, Lymphocytes (%) (Auto) 29.9, Monocytes (%) (Auto) 12.9 H, Eosinophils (%) (Auto) 2.7, Basophils (%) (Auto) 0.9, Neutrophils # (Auto) 3.4, Lymphocytes # (Auto) 1.9, Monocytes # (Auto) 0.8, Eosinophils # (Auto) 0.2, Basophils # (Auto) 0.1, Calcium Level 8.2 L Vital Signs Date Time Temp Pulse Resp B/P (MAP) Pulse Ox O2 Delivery O2 Flow Rate FiO2 10/18/18 06:00 97.7 69 20 86/50 (62) 97 10/17/18 21:00 3.0 I&O- Last 24 Hours up to 6 AM 10/18/18 06:00 Intake Total 748 ml Output Total 2000 ml Balance -1252 ml BLAIR NEAL MD Oct 18, 2018 11:21
[2018-10-18 11:35] VITALS: BP 101/59
--- NOTE | 2018-10-18 11:58 | REP ---
CHEST, TWO VIEWS: Two views of the chest are performed. The patient is status post right thoracentesis procedure. Comparing to the prior study of 10/17/2018, there is decrease amount of right pleural fluid. There is no pneumothorax. The remainder of the study is unchanged with cardiomegaly and left basilar opacities again noted. Right central venous catheter is again seen. There are multiple sternal wires as well as a prostatic heart valve. IMPRESSION: Decreased amount of right pleural fluid status post right thoracentesis. No pneumothorax. Electronically Signed by Sandro Pope MD 10/18/2018 01:57 P
[2018-10-18 12:05] VITALS: BP 95/57
[2018-10-18 14:00] VITALS: BP 114/55
--- NOTE | 2018-10-18 16:25 | REP ---
ULTRASOUND-GUIDED RIGHT THORACENTESIS The procedure was performed under the direct supervision of Dr. pope. The risks and benefits of the procedure were explained to the patient and informed consent was obtained. The right pleural effusion was localized using ultrasound guidance. The skin was prepped and draped in a sterile fashion. 1% lidocaine was used as a local anesthetic. An 8-[place] multi side-hole catheter was inserted using trocar technique. 595 ml of low viscosity red colored fluid was withdrawn and discarded. The patient tolerated the procedure well and there were no immediate complications. Reviewed by YULISSA Heaton 10/18/2018 03:53 P Electronically Signed by Sandro Pope MD 10/18/2018 04:16 P
[2018-10-18] MEDS ORDERED: IPRATROPIUM 0.5MG/ALBUTEROL 2.5MG INH SOL UD 3ML (DUONEB)(J7620) NEB ONE (20:15)
[2018-10-18] MEDS: rOPINIRole 0.25 MG TAB(REQUIP) PO SCH (20:32)
[2018-10-18] MEDS: ASPIRIN 81 MG ENTERIC TAB PO SCH (20:32)
[2018-10-18 22:00] VITALS: BP 83/48
[2018-10-19] MEDS: IPRATROPIUM 0.5MG/ALBUTEROL 2.5MG INH SOL UD 3ML (DUONEB)(J7620) NEB PRN (02:25)
[2018-10-19] MEDS ORDERED: ONDANSETRON 4 MG TAB (S0181) PO PRN (02:30)
[2018-10-19 04:32] VITALS: BP 72/40
[2018-10-19 05:06] VITALS: BP 72/43
[2018-10-19] MEDS: MIDODRINE 5 MG TAB PO SCH ×3 (05:10→17:55)
[2018-10-19] MEDS: LEVOTHYROXINE 100MCG TABLET (0.1MG) PO SCH (05:10)
[2018-10-19 05:57] VITALS: BP 107/79
[2018-10-19 06:00] VITALS: BP 107/79
[2018-10-19 06:01] LABS: BASO # 0.1 10^3/uL (0.0-0.2); EOS # 0.1 10^3/uL (0.0-0.50); EOS % 1.4 % (0.0-3.0); HEMATOCRIT 39.4 % (42.0-52.0); LYMPH # 1.7 10^3/uL (1.5-4.5); LYMPH % 21.3 % (24.0-44.0); MEAN CORPUSCULAR HEMOGLOBIN 32.5 pg (27.0-33.0); MEAN CORPUSCULAR HGB CONC 30.5 g/dl (32.0-36.5); MEAN CORPUSCULAR VOLUME 106.8 fl (80.0-96.0); MONO # 0.8 10^3/uL (0.0-0.8); MONO % 10.7 % (0.0-5.0); NEUTROPHILS # 5.1 10^3/uL (1.8-7.7); PLATELET COUNT, AUTOMATED 204 10^3/uL (150-450); RED BLOOD COUNT 3.69 10^6/uL (4.30-6.10); WHITE BLOOD COUNT 7.9 10^3/uL (4.0-10.0)
[2018-10-19 06:09] LABS: INR 1.52; PROTHROMBIN TIME 18.5 SECONDS (12.1-14.4)
[2018-10-19 06:31] LABS: CALCIUM LEVEL 8.5 MG/DL (8.8-10.2); CREATININE FOR GFR 4.88 MG/DL (0.70-1.30); GLOMERULAR FILTRATION RATE 12.1 (>35); MAGNESIUM LEVEL 1.9 MG/DL (1.8-2.4); POTASSIUM SERUM 5.1 MEQ/L (3.5-5.1)
[2018-10-19] MEDS: DOXYCYCLINE HYCLATE 100 MG TAB PO SCH ×2 (06:47→20:48)
[2018-10-19] MEDS: FEBUXOSTAT 40 MG TABLET (ULORIC) PO SCH (06:48)
[2018-10-19] MEDS: AMIODARONE 200 MG TAB (PACERONE) PO SCH (06:48)
[2018-10-19] MEDS: SENOKOT S TAB PO SCH ×2 (06:48→20:47)
[2018-10-19] MEDS: HumaLOG INSULIN (NovoLOG) PER UNIT SC SCH ×3 (07:50→17:30)
[2018-10-19] MEDS: LEVEMIR (INSULIN DETEMIR) 1 UNITS/0.01ML SC SCH (07:51)
--- NOTE | 2018-10-19 08:20 | IPN ---
DATE: 10/18/2018 SUBJECTIVE: Bryan is seen and examined this morning at the bedside. He had a thoracentesis done with about 600 mL of fluid removed. He tolerated the procedure without problems. Dialysis yesterday removed 2 liters. He reports he is breathing is feeling a little bit better. Vital Signs: Temperature 97.8, pulse 70, respiratory rate 18, blood pressure 114/55, saturating 97% on 3 liters nasal cannula. Intake yesterday was 860. Dialysis yesterday removed 2 liters. Weight on the bed scale today is not recorded. General: Patient is seen sitting in bed, elderly and frail male in no acute distress. Extraocular muscles are intact. Tongue is moist. Neck is supple. There is tunneled hemodialysis catheter present in the right chest wall with dressing. Jugular veins are mildly elevated. Cardiac: S1, S2 regular rate and rhythm. Lungs: Diminished breath sounds at the bilateral bases. The right base is less dull as compared to yesterday. There are crackles. Abdomen is soft and nontender. The extremities show 1+ pitting edema. LABS: White count 6.4, hemoglobin 11.2, platelet 166. Sodium 140, potassium 4.5, magnesium 1.7. INPATIENT MEDICATIONS: Reviewed by myself. No change from prior. PROBLEMS: 1. End-stage renal disease on hemodialysis on Monday, Monday, Monday schedule chronically with volume overload and chronic hypotension of hemodialysis despite use of maximum midodrine. Volume status is difficult to optimize given severe systolic congestive heart failure and chronic hypertension. At most, he tolerates about 2 liters of fluid removal. His next dialysis will be tomorrow. 2. Chronic systolic congestive heart failure with bilateral pleural effusions and chronic hypervolemia and, unfortunately, intolerant of aggressive ultrafiltration due to chronic hypotension. Continue midodrine 10 mg by mouth three times a day. Continue fluid restriction and low salt diet. 3. Recurrent right pleural effusion: Chest x-ray had shown moderate to large right pleural effusion status post thoracentesis today. Has been requiring anywhere between 2-4 liters of supplemental oxygen. The patient tells me this is the fourth thoracentesis he has had done. He will likely continue needing them as dialysis alone is not adequately managing his fluid status due to chronic hypotension. 4. Anemia related to chronic renal failure: Hemoglobin is at target. He continues on Aranesp. 5. Atrial fibrillation: Anticoagulation managed as per primary team.
[2018-10-19] MEDS ORDERED: HEPARIN 1,000 UNITS/ML 10ML VIAL (FOR RADIOLOGY& DIALYSIS ONLY) XX ONE (13:00)
[2018-10-19] MEDS ORDERED: HEPARIN 1,000 UNITS/ML 10ML VIAL (FOR RADIOLOGY& DIALYSIS ONLY) IV ONE (13:00)
--- NOTE | 2018-10-19 13:25 | IPNPDOC ---
Text Note Date of Service The patient was seen on 10/19/18. NOTE Subjective: Patient is a 87-year-old male with a PMHx of End Stage CHF (EF 20%, Possibly diastolic dysfunction), A. fib (on Coumadin), AVR (Porcine), CAD s/p CABG, ESRD on HD, DM2, who presented to the ER with weakness and lightheadedness. In the emergency room, patient was found to be hypotensive and received IV fluid hydration. Patient was admitted to the hospice service for further evaluation and treatment Ultimately throughout the course patient was found to be in signs of fluid overload and required fluid removal via hemodialysis as well as a thoracentesis for optimization. Patient was seen and examined at the bedside. Patient has noted weakness overnight and low blood pressure. He was given a dose of Midodrine sooner. He denied any chest pain, SOB or palpitations. Denied any N/V, abdominal pain, constipation or diarrhea. Objective: Vitals (See below) General: Lying in bed, no acute distress, comfortable, AAOx3 HEENT: NC, AT CVS: RRR, +S1S2 Lungs: No evidence of wheezing or rhonchi, there still appeared to be mild crackles at left base Abdomen: Soft, ND, without any tenderness noted Extremities: Again trace pitting edema, - Calf tenderness Assessment and plan: Left toe erythema / Left heel erythema - possibly 2/2 cellulitis, possibly 2/2 Stage 1 pressure Ulcer - Improvement of erythema / warm / tenderness - c/w Doxycycline (Day #7) Chronic Decompensated systolic and possibly diastolic congestive heart failure - Physical reveals signs of fluid overload - ECHO 07/14/18: EF 20%, Possibly diastolic dysfunction, moderate TR, Elevated CVP - CXR 10/09: 1. Bibasilar opacities consistent with moderate pleural effusions and atelectasis similar to prior examination. Associated pulmonary vascular congestion/interstitial edema noted. - Patient does not make much urine and dialysis is used to remove fluid Right-sided pleural effusion - CXR 10/17: [id number]-[id number] right pleural effusion with bilateral lower lobe infiltrate/atelectasis. - s/p Vitamin K 1 mg SQ on 10/17/18 - s/p IR guided drainage on 10/02 - removal of 660cc of fluid - s/p IR guided drainage on 10/18 - removal of 500cc of fluid - Will continue dialysis ESRD on HD - c/w HD as scheduled Chronic Hypotension - Continue with Midodrine at maximum dose - Difficulty to remove fluid with hypotension A. fib - c/w rate / rhythm control with Amiodarone - INR subtherapeutic - Will resume Coumadin (re: Thoracentesis) - c/w ASA 81 AVR with Porcine valve CAD s/p CABG - c/w ASA DM2 - c/w ISS and Levemir RLS - c/w Ropinirole Gout - c/w Uloric DVT prophylaxis - c/w Coumadin Prognosis: - Very poor Code Status: - DNR Disposition: - Discussions about hospice were had with the patient, however, he is not yet agreeable to this - Family is aware of his poor prognosis and end stage heart failure VS,Doris, I+O VS, Doris, I+O Laboratory Tests 10/19/18 05:20 Red Blood Count 3.69 L, Mean Corpuscular Volume 106.8 H, Mean Corpuscular Hemoglobin 32.5, Mean Corpuscular Hemoglobin Concent 30.5 L, Red Cell Distribution Width 18.0 H, Neutrophils (%) (Auto) 65.0, Lymphocytes (%) (Auto) 21.3 L, Monocytes (%) (Auto) 10.7 H, Eosinophils (%) (Auto) 1.4, Basophils (%) (Auto) 1.0, Neutrophils # (Auto) 5.1, Lymphocytes # (Auto) 1.7, Monocytes # (Auto) 0.8, Eosinophils # (Auto) 0.1, Basophils # (Auto) 0.1, Calcium Level 8.5 L Vital Signs Date Time Temp Pulse Resp B/P (MAP) Pulse Ox O2 Delivery O2 Flow Rate FiO2 10/19/18 06:00 97.4 59 22 107/79 (88) 94 4.0 I&O- Last 24 Hours up to 6 AM 10/19/18 06:00 Intake Total 808 ml Output Total 0 ml Balance 808 ml BLAIR NEAL MD Oct 19, 2018 13:25
[2018-10-19] MEDS: WARFARIN SOD 3 MG TAB PO SCH (17:55)
[2018-10-19] MEDS: diphenhydrAMINE 12.5MG/5ML ELIXIR UDC PO PRN (20:47)
[2018-10-19] MEDS: rOPINIRole 0.25 MG TAB(REQUIP) PO SCH (20:48)
[2018-10-19] MEDS: ASPIRIN 81 MG ENTERIC TAB PO SCH (20:48)
[2018-10-19] MEDS: ACETAMINOPHEN 500 MG TAB PO PRN (20:48)
[2018-10-19 22:00] VITALS: BP 97/61
[2018-10-20] MEDS: LEVOTHYROXINE 100MCG TABLET (0.1MG) PO SCH (05:28)
[2018-10-20 06:00] VITALS: BP 97/63
[2018-10-20 06:15] LABS: BASO # 0.1 10^3/uL (0.0-0.2); BASO % 0.8 % (0.0-1.0); EOS # 0.1 10^3/uL (0.0-0.50); EOS % 1.3 % (0.0-3.0); HEMATOCRIT 38.8 % (42.0-52.0); HEMOGLOBIN 11.9 g/dl (13.5-17.5); LYMPH # 1.9 10^3/uL (1.5-4.5); MEAN CORPUSCULAR HEMOGLOBIN 31.8 pg (27.0-33.0); MEAN CORPUSCULAR HGB CONC 30.7 g/dl (32.0-36.5); MEAN CORPUSCULAR VOLUME 103.7 fl (80.0-96.0); MONO # 0.9 10^3/uL (0.0-0.8); MONO % 12.4 % (0.0-5.0); NEUTROPHILS # 4.5 10^3/uL (1.8-7.7); NEUTROPHILS % 60.1 % (36.0-66.0); PLATELET COUNT, AUTOMATED 163 10^3/uL (150-450); RED BLOOD COUNT 3.74 10^6/uL (4.30-6.10); WHITE BLOOD COUNT 7.4 10^3/uL (4.0-10.0)
[2018-10-20 06:23] LABS: INR 1.44; PROTHROMBIN TIME 17.8 SECONDS (12.1-14.4)
[2018-10-20 06:30] LABS: CALCIUM LEVEL 8.4 MG/DL (8.8-10.2); CREATININE FOR GFR 3.44 MG/DL (0.70-1.30); GLOMERULAR FILTRATION RATE 18.1 (>35); MAGNESIUM LEVEL 2.1 MG/DL (1.8-2.4); POTASSIUM SERUM 4.8 MEQ/L (3.5-5.1)
[2018-10-20] MEDS: HumaLOG INSULIN (NovoLOG) PER UNIT SC SCH ×3 (07:30→17:05)
[2018-10-20] MEDS: MIDODRINE 5 MG TAB PO SCH ×3 (08:44→16:27)
[2018-10-20] MEDS: FEBUXOSTAT 40 MG TABLET (ULORIC) PO SCH (08:44)
[2018-10-20] MEDS: SENOKOT S TAB PO SCH ×2 (08:44→20:27)
[2018-10-20] MEDS: AMIODARONE 200 MG TAB (PACERONE) PO SCH (08:44)
[2018-10-20] MEDS: LEVEMIR (INSULIN DETEMIR) 1 UNITS/0.01ML SC SCH (08:45)
--- NOTE | 2018-10-20 11:02 | IPN ---
DATE OF SERVICE: 10/19/2018 SUBJECTIVE: Bryan is seen and examined this morning in the hemodialysis unit receiving his maintenance treatment. He is status post thoracentesis yesterday and is continuing to require 4 liters of oxygen. VITAL SIGNS: Temperature 97.4, pulse 59, respiratory rate 22, blood pressure 107/79, saturating 94% on 4 liters nasal cannula. INTAKE AND OUTPUT: Intake yesterday was 760. Dialysis today was only able to remove 1 liter. PHYSICAL EXAMINATION: General: Patient is seen in the hemodialysis unit receiving his treatment. Family is present at the bedside. Elderly, frail male in no acute distress. Extraocular muscles are intact. Tongue is moist. Neck is supple. Tunneled hemodialysis catheter in the right chest wall is presently in use. Jugular veins are mildly elevated. Cardiac: S1, S2 regular rate and rhythm. Lungs: Diminished breath sounds at both bases. There are mild crackles. Abdomen is soft and nontender, there are bowel sounds. The extremities show trace edema bilaterally. Neurologic he is at his usual baseline mentation, oriented, interactive and conversational. LABS: White count 7.9, hemoglobin 12.0, platelet 204. Sodium 137, potassium 5.1, bicarbonate 24, magnesium 1.9. INPATIENT MEDICATIONS: Reviewed by myself and noted his Coumadin was resumed. Remainder of medications are unchanged from prior. PROBLEMS: 1. End-stage renal disease on hemodialysis on Monday, Monday, Monday schedule. Chronically volume overloaded with hypotension of hemodialysis complicating our ability to remove fluid despite use of maximum midodrine. He was hypotensive again during today's treatment so we were able to take off 1 liter today. Volume status is difficult to optimize given severe systolic congestive heart failure and chronic hypotension. He has had recurrent pleural effusion secondary to the same. He tolerates about 1 to 2 liters of fluid removal with each treatment. He continues on oral fluid restriction. 2. Chronic systolic congestive heart failure with bilateral pleural effusions and chronic hypervolemia and, unfortunately, intolerant of aggressive ultrafiltration due to chronic hypotension. Continue midodrine 10 mg by mouth three times a day. Continue fluid restriction and low salt diet. He is status post right sided thoracentesis a total of four times now he tells me. Dialysis alone is not sufficient for effective control of the effusion and that is due to the hypotension complicating his dialysis treatment. 3. Recurrent right pleural effusion. Status post thoracentesis yesterday, about 600 mL of fluid removed. Has been requiring anywhere between 2-4 liters of supplemental oxygen. He will likely continue needing thoracenteses as dialysis alone is not adequately managing his fluid status due to chronic hypotension. 4. Anemia related to chronic renal failure. Hemoglobin is at target. Continue on Aranesp. 5. Atrial fibrillation. Coumadin has been resumed by the primary team. He is not on any rate controlling medications due to the aforementioned hypotension.
[2018-10-20] MEDS ORDERED: HEPARIN 1,000 UNITS/ML 10ML VIAL (FOR RADIOLOGY& DIALYSIS ONLY) XX ONE (11:45)
[2018-10-20] MEDS ORDERED: HEPARIN 1,000 UNITS/ML 10ML VIAL (FOR RADIOLOGY& DIALYSIS ONLY) IV ONE (11:45)
--- NOTE | 2018-10-20 12:09 | IPNPDOC ---
Text Note Date of Service The patient was seen on 10/20/18. NOTE Subjective: Patient is a 87-year-old male with a PMHx of End Stage CHF (EF 20%, Possibly diastolic dysfunction), A. fib (on Coumadin), AVR (Porcine), CAD s/p CABG, ESRD on HD, DM2, who presented to the ER with weakness and lightheadedness. In the emergency room, patient was found to be hypotensive and received IV fluid hydration. Patient was admitted to the hospice service for further evaluation and treatment Ultimately throughout the course patient was found to be in signs of fluid overload and required fluid removal via hemodialysis as well as a thoracentesis for optimization. Patient was seen and examined at the bedside. Patient reported that he didn't sleep well yesterday. Denies any significant change in his breathing. Denies any cough. Did report some substernal chest pain that he described as constant in nature, occurring right of his substernal area without any radiation, reported as a 10 out of 10, dull in nature, did not have any associated diaphoresis but did experience nausea. Patient noted that he had a similar event a few days ago when he had eaten something and felt as if it had got stuck lower esophagus. Patient denies any abdominal pain, constipation or diarrhea. He is scheduled to go for additional dialysis today. Objective: Vitals (See below) General: Lying in bed, no acute distress, comfortable, AAOx3 HEENT: NC, AT CVS: RRR, +S1S2 Lungs: Right lung base continues to have diminished lung sounds. Appears to be crackles at left lung base. No evidence of wheezing or rhonchi Abdomen: Abdomen remains soft, nondistended, without tenderness Extremities: Again trace pitting edema is noted, - Calf tenderness Assessment and plan: Substernal atypical chest pain - appears to be 2/2 GI etiology, less likely 2/2 cardiogenic etiology - Patient had noted continuous, dull chest pain occurring right of his substernal - He had noted that he began experiencing this evening after he had eaten something and had a continuous since that point - Patient had a similar episode a few days ago and noted that after drinking a few subsequent water the pain had subsided - Will get EKG and cardiac markers - Will adjust diet to pured; will get barium swallow/esophagram on Monday Chronic Decompensated systolic and possibly diastolic congestive heart failure - Physical reveals signs of fluid overload - ECHO 07/14/18: EF 20%, Possibly diastolic dysfunction, Moderate TR, Elevated CVP - CXR 10/09: 1. Bibasilar opacities consistent with moderate pleural effusions and atelectasis similar to prior examination. Associated pulmonary vascular congestion/interstitial edema noted. - Patient does not make much urine and dialysis is used to remove fluid Right-sided pleural effusion - CXR 10/17: [id number] right pleural effusion with bilateral lower lobe infiltrate/atelectasis. - s/p Vitamin K 1 mg SQ on 10/17/18 - s/p IR guided drainage on 10/02 - removal of 660cc of fluid - s/p IR guided drainage on 10/18 - removal of 500cc of fluid - Will continue dialysis s/p Left toe erythema / Left heel erythema - possibly 2/2 cellulitis, possibly 2/2 Stage 1 pressure Ulcer - Improvement of erythema / warm / tenderness - Has completed Doxycycline course for 7 days ESRD on HD - c/w HD as scheduled - Will be going for additional dialysis today Chronic Hypotension - Continue with Midodrine at maximum dose - Difficulty to remove fluid with hypotension A. fib - c/w rate / rhythm control with Amiodarone - INR subtherapeutic - Will resume Coumadin (re: Thoracentesis) - c/w ASA 81 AVR with Porcine valve CAD s/p CABG - c/w ASA DM2 - c/w ISS and Levemir RLS - c/w Ropinirole Gout - c/w Uloric DVT prophylaxis - c/w Coumadin Prognosis: - Very poor Code Status: - DNR Disposition: - Discussions about hospice were had with the patient, however, he is not yet agreeable to this - Family is aware of his poor prognosis and end stage heart failure VS,Fishbone, I+O VS, Fishbone, I+O Laboratory Tests 10/20/18 05:27 Red Blood Count 3.74 L, Mean Corpuscular Volume 103.7 H, Mean Corpuscular Hemoglobin 31.8, Mean Corpuscular Hemoglobin Concent 30.7 L, Red Cell Distribution Width 18.0 H, Neutrophils (%) (Auto) 60.1, Lymphocytes (%) (Auto) 25.0, Monocytes (%) (Auto) 12.4 H, Eosinophils (%) (Auto) 1.3, Basophils (%) (Auto) 0.8, Neutrophils # (Auto) 4.5, Lymphocytes # (Auto) 1.9, Monocytes # (Auto) 0.9 H, Eosinophils # (Auto) 0.1, Basophils # (Auto) 0.1, Calcium Level 8.4 L Vital Signs Date Time Temp Pulse Resp B/P (MAP) Pulse Ox O2 Delivery O2 Flow Rate FiO2 10/20/18 06:00 96.9 93 18 97/63 (74) 95 3.0 I&O- Last 24 Hours up to 6 AM 10/20/18 06:00 Intake Total 870 ml Output Total 1000 ml Balance -130 ml BLAIR NEAL MD Oct 20, 2018 12:09
[2018-10-20 12:18] LABS: MB/CK RELATIVE INDEX 6.54 (< OR =4); TROPONIN I 0.7 NG/ML (< 0.10)
--- NOTE | 2018-10-20 12:48 | IPN ---
DATE OF VISIT: 10/20/2018 Mr. Quezada is seen this morning on his bedside. He has cough and shortness of breath. He underwent hemodialysis yesterday and only 1 liter of fluid was removed and he was quite hypotensive during dialysis treatment. The patient has recurrent bilateral pleural effusions and congestive heart failure. He also has chronic hypotension despite being on high-dose midodrine and we have been unable to remove fluid and he remains decompensated. His right pleural effusion has been drained multiple times. The patient's family has been requesting to consider hospice, however, the patient has declined it so far. PHYSICAL EXAMINATION: Temperature 96.9 degrees Fahrenheit, heart rate 92 per minute and respiratory rate 18 per minute. Blood pressure 97/63 mmHg and oxygen saturation 95% on 3 liters oxygen. Head is atraumatic. Neck is supple and JVD is markedly elevated. Lungs have markedly diminished breath sounds at lower two thirds with bibasilar rales. Heart sounds are irregular in rhythm. Abdomen is soft, nontender and bowel sounds are present. Extremities have no cyanosis or clubbing. Both upper extremities have edema; however, it is much worse on the left than right. There is also trace edema on the lower extremities. Neurologically, he is awake and at his baseline mentation without a focal deficit. Today's labs show WBC count 7.4, hemoglobin 11.9 and hematocrit 38.8. Platelets 163. Sodium 137, potassium 4.8, CO2 25, BUN 28 and creatinine 3.44. PROBLEMS: 1. Acute on chronic systolic congestive heart failure. The patient remains quite decompensated despite dialysis yesterday. Unfortunately, he does not tolerate fluid removal very well due to hypotension. We will try to ultrafiltrate him again today and see if we can remove another 1.5 liters of fluid. 2. Hypotension. His blood pressure remains chronically low. He is currently on midodrine 10 mg t.i.d. I do not feel that IV albumin is a logical solution as he has to be dialyzed as an outpatient in which situation he cannot take IV albumin. At this point, our goal is to try to optimize his condition if possible and if he could not tolerate dialysis then probably hospice will be discussed again. 3. End-stage renal disease. The patient remains dialysis dependent. He was dialyzed yesterday and we will ultrafiltrate him today. 4. Anemia. At present, his anemia is stable and does not need any urgent intervention. 5. Recurrent pleural effusions. The patient has bilateral pleural effusions, right larger than the left. He has had thoracentesis done at least three to four times within the last couple of months. We will continue to try to correct his volume status with dialysis if at all possible. His prognosis remains guarded.
[2018-10-20] MEDS ORDERED: ASPIRIN 81 MG CHEW TABLET PO ONE (13:00)
[2018-10-20] MEDS: WARFARIN SOD 3 MG TAB PO SCH (16:27)
[2018-10-20 16:46] LABS: MB/CK RELATIVE INDEX 9.79 (< OR =4); TROPONIN I 1.15 NG/ML (< 0.10)
[2018-10-20 18:00] VITALS: BP 66/41
[2018-10-20] MEDS: ACETAMINOPHEN TAB 650MG DOSE (2X325MG) PO PRN (19:42)
[2018-10-20] MEDS: rOPINIRole 0.25 MG TAB(REQUIP) PO SCH (20:27)
[2018-10-20 21:39] LABS: MB/CK RELATIVE INDEX 11.09 (< OR =4); TROPONIN I 1.19 NG/ML (< 0.10)
[2018-10-20 22:00] VITALS: BP 86/47
[2018-10-20] MEDS: IPRATROPIUM 0.5MG/ALBUTEROL 2.5MG INH SOL UD 3ML (DUONEB)(J7620) NEB PRN (23:36)
[2018-10-21 01:00] VITALS: BP 123/60
[2018-10-21 02:55] LABS: MB/CK RELATIVE INDEX 13.43 (< OR =4); TROPONIN I 1.89 NG/ML (< 0.10)
--- NOTE | 2018-10-21 16:50 | DS.PDOC ---
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 HISTORY OF PRESENT ILLNESS: Patient is a 87-year-old male with a PMHx of End Stage CHF (EF 20%, Possibly diastolic dysfunction), A. fib (on Coumadin), AVR (Porcine), CAD s/p CABG, ESRD on HD, DM2, who presented to the ER with weakness and lightheadedness. In the emergency room, patient was found to be hypotensive and received IV fluid hydration. Patient was admitted to the hospice service for fur ther evaluation and treatment Ultimately throughout the course patient was found to be in signs of fluid overload and required fluid removal via hemodialysis as well as a thoracentesis for optimization. HOSPITAL COURSE: Substernal atypical chest pain - appears to be 2/2 GI etiology, less likely 2/2 cardiogenic etiology - Patient had noted continuous, dull chest pain occurring right of his substernal - He had noted that he began experiencing this evening after he had eaten something and had a continuous since that point - Patient had a similar episode a few days ago and noted that after drinking a few subsequent water the pain had subsided - Cardiac markers were noted to be elevated; discussed with Cardiology, Dr. 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 Bibasilar opacities consistent with moderate pleural effusions and atelectasis similar to prior examination. Associated pulmonary vascular congestion/interstitial edema noted. - Patient does not make much urine and dialysis is used to remove fluid Right-sided pleural effusion - CXR 10/17: [id number] right pleural effusion with bilateral lower lobe infiltrate/atelectasis. - s/p Vitamin K 1 mg SQ on 10/17/18 - s/p IR guided drainage on 10/02 - removal of 660cc of fluid - s/p IR guided drainage on 10/18 - removal of 500cc of fluid - Will continue dialysis s/p Left toe erythema / Left heel erythema - possibly 2/2 cellulitis, possibly 2/2 Stage 1 pressure Ulcer - Improvement of erythema / warm / tenderness - Has completed Doxycycline course for 7 days ESRD on HD - c/w HD as scheduled - s/p additional dialysis today Chronic Hypotension - Continue with Midodrine at maximum dose - Difficulty to remove fluid with hypotension A. fib - c/w rate / rhythm control with Amiodarone - INR subtherapeutic - c/w Coumadin - c/w ASA 81 AVR with Porcine valve CAD s/p CABG - c/w ASA DM2 - c/w ISS and Levemir RLS - c/w Ropinirole Gout - c/w Uloric DVT prophylaxis - c/w Coumadin DISCHARGE MEDICATIONS: Please see below. ALLERGIES: Please see below. PHYSICAL EXAMINATION ON DISCHARGE: Full exam not completed on expiration LABORATORY DATA: Please see below. DISCHARGE PLAN: DISPOSITION: TIME SPENT ON DISCHARGE: Greater than [20] minutes. Vital Signs/I&Os Vital Signs Date Time Temp Pulse Resp B/P (MAP) Pulse Ox O2 Delivery O2 Flow Rate FiO2 10/21/18 03:34 96.1 12 4.0 10/21/18 01:00 123/60 (81) 10/20/18 22:00 64 95 I&O- Last 24 Hours up to 6 AM 10/21/18 05:59 Intake Total 910 ml Output Total 1500 ml Balance -590 ml Laboratory Data Labs 24H Laboratory Tests 2 10/20/18 20:32: Bedside Glucose (Misc Panel) 74L 10/20/18 21:10: Total Creatine Kinase 101, Creatine Kinase MB 11.0H, Creatine Kinase MB Relative Index 11.09H, Troponin I 1.19H 10/21/18 02:06: Total Creatine Kinase 102, Creatine Kinase MB 14.0H, Creatine Kinase MB Relative Index 13.43H, Troponin I 1.89#*H FSBS Laboratory Tests Test 10/20/18 20:32 Range/Units Bedside Glucose (Misc Panel) 74 83-110 MG/DL Discharge Medications Scheduled (Evita-Velia) 1 Tab Tab, 1 TAB PO DAILY, (Reported) (Requip) 0.25 Mg Tab, 0.25 MG PO QHS, (Reported) (B Complex/Folic Acid 500-5-200 Mcg-mg-Mcg) 1 Tab Tab, 1 TAB PO DAILY, (Reported) Amiodarone HCl (Amiodarone HCl) 200 Mg Tab, 200 MG PO DAILY, (Reported) Aspirin (Aspirin) 81 Mg Tab, 81 MG PO QHS, (Reported) Febuxostat (Uloric) 40 Mg Tab, 40 MG PO DAILY, (Reported) Insulin Glargine (Lantus Solostar) 100 Unit/Ml Inj, 14 DOSE SC DAILY, (Reported) Levothyroxine Sodium (Levoxyl) 100 Mcg Tab, 100 MCG PO DAILY, (Reported) Midodrine HCl (Midodrine HCl) 10 Mg Tab, 10 MG PO TID, (Reported) Harrod 3 Polyunsat Fatty Acids (Lovaza 1 gm) 1 Cap Cap, 1 CAP PO QHS, (Reported) Rosuvastatin Calcium (Crestor) 5 Mg Tab, 5 MG PO QHS, (Reported) Sevelamer Carbonate (Renvela) 800 Mg Tab, 1,600 MG PO PC, (Reported) Sitagliptin (Januvia) 50 Mg Tab, 50 MG PO DAILY, (Reported) Warfarin Sod (Coumadin) 2 Mg Tab, 2 MG PO Q2D, (Reported) TAKES EVERY OTHER NIGHT Warfarin Sod (Warfarin Sodium) 1 Mg Tab, 1 MG PO Q2D, (Reported) TAKES EVERY OTHER NIGHT Scheduled PRN (Tylenol Pm Extra Strength 500-25 mg) 1 Tab Tab, 1 TAB PO QHS PRN for INSOMNIA, (Reported) Acetaminophen (Tylenol Extra Strength) 500 Mg Tab, 500 MG PO DAILY PRN for PAIN OR FEVER, (Reported) Docusate Sodium (Docusate Sodium) 100 Mg Cap, 100 MG PO BID PRN for CONSTIPATION, (Reported) Nitroglycerin (Nitrostat) 0.4 Mg Subl, 0.4 MG SL NITRO PRN for CHEST PAIN, (Reported) Allergies Coded Allergies: Contrast Media (Verified Allergy, Intermediate, kidney issues, 10/16/18) latex (Verified Allergy, Unknown, 10/17/18) morphine (Verified Adverse Reaction, Intermediate, confusion, 10/17/18) BLAIR NEAL MD Oct 21, 2018 16:50
--- NOTE | 2018-10-21 22:53 | ECGEPIP ---
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
== END 2018-10-21 03:51 | disposition expired | DRG 314 ==
LOC: M ED 20:55 → M ED INP 09-28 00:12 → M MSPAV 09-28 07:41
PROVIDERS: ADMIT Hospitalist; ATTEND Internal Medicine
DX: I95.89 Other hypotension (principal); I50.43 Acute on chronic combined systolic (congestive) and diastolic (congestive) heart failure; N18.6 End stage renal disease; G90.3 Multi-system degeneration of the autonomic nervous system; N25.81 Secondary hyperparathyroidism of renal origin; J90 Pleural effusion, not elsewhere classified; E87.1 Hypo-osmolality and hyponatremia; R53.1 Weakness; I48.91 Unspecified atrial fibrillation; E88.09 Other disorders of plasma-protein metabolism, not elsewhere classified; D63.1 Anemia in chronic kidney disease; L89.621 Pressure ulcer of left heel, stage 1; L03.032 Cellulitis of left toe; E11.9 Type 2 diabetes mellitus without complications; I25.10 Atherosclerotic heart disease of native coronary artery without angina pectoris; Z95.1 Presence of aortocoronary bypass graft; Z95.2 Presence of prosthetic heart valve; Z79.01 Long term (current) use of anticoagulants; Z79.899 Other long term (current) drug therapy; Z91.041 Radiographic dye allergy status; Z91.040 Latex allergy status; Z88.5 Allergy status to narcotic agent; E78.5 Hyperlipidemia, unspecified